=== PATIENT | male | born 1960 | race Caucasian/White ===

== ENCOUNTER 2025-02-27 13:03 | Outpatient (AMB) | payer OTHER, SELFPAY ==
--- NOTE | 2025-02-27 13:08 | MHC.OFFVIS ---
Vital Signs 02/27/25 13:13 Height 5 ft 9.5 in Weight 244 lb 4 oz BMI 35.5 BP 128/74 Blood Pressure Location Rt brachial Position Sitting Pulse 55 Pulse Source Pulse Oximeter Pulse Oximetry (%) 99 Oxygen Delivery Method Room Air Intake Visit Reasons: Bilateral low back pain Intake Note: Pain today 12/10 Tree Trimmer Required: No Accompanied by: Self / Same As Patient Allergies No Known Allergies Allergy (Verified 02/27/25 13:13) HPI HPI Bilateral low back pain: Aggravating or associated factors: HPI Comments Details: The patient is a 64-year-old male presenting with chronic low back pain with radiculopathy. The pain has been present for over a year, characterized by constant stiffness, aching, stabbing, and numbness radiating down the left leg. Exacerbating factors include laying down, bending, lifting, and standing, while stretching, Tylenol, and ibuprofen provide some relief. 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 He is scheduled to start physical therapy at [facility]. Patient also reports other back injections that believe to be facet or medial branch blocks at [facility] with minimal relief. The patient has a history of osteoarthritis, with previous joint replacements including the right knee, right hip, and left hip (twice, including hip revision). He reports generalized osteoarthritis affecting multiple joints. The patient has chronic kidney disease stage 3, managed by his PCP, primarily due to recurrent kidney stones. He avoids daily use of ibuprofen due to his kidney condition. The patient also has benign prostatic hyperplasia, but denies bladder or bowel incontinence related to spinal stenosis. He reports spondylolisthesis, though he does not experience instability or significant functional impairment from it. - Onset: Pain has been present for over a year. - Quality: Described as constant stiffness, aching, stabbing, burning, tightness in back; heaviness and numbness in LLE. - Location: Low back with radiation down the left leg posteriorly and big toe. - Exacerbating factors: Laying down, bending, lifting, and standing. - Relieving factors: Stretching, Tylenol, and ibuprofen. - Interference: Affects sleep and daily activities. - Affect: Pain impacts sleep, requiring the patient to find a specific position to rest. - Analgesia: Current medications include Tylenol, ibuprofen, and gabapentin; pain levels vary from 5/10 to 10/10 throughout the day. - Adverse Effects: No significant adverse effects from current medications reported. 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 - Aberrant Drug Related Behaviors: No signs of medication misuse or abuse reported. Oswestry Low Back Pain Disability Score=18 [facility] Medical History (Updated 02/27/25 @ 20:00 by VINAY White) Hyperlipidemia Onychomycosis Stage 3 chronic kidney disease Insomnia Cervical spine arthritis Osteoarthritis History of obsessive compulsive disorder Cardiac hypertrophy Chronic sinusitis Anxiety Sleep apnea Review of Systems Const Details: - Musculoskeletal: Reports chronic low back pain with radiation to the left leg, occasional muscle spasms, and stiffness. - Neurological: Reports numbness and tinging in the left leg and big toe, occasional weakness in the left leg. Denies saddle anesthesia. - Genitourinary: Denies urinary or bowl incontinence related to spinal stenosis. Reports burning and stabbing pain in posterior thigh and perineal region. - General: Denies smoking, reports rare alcohol consumption, and occasional use of cannabis edibles for sleep. All systems reviewed & are unremarkable except as noted in HPI and below Physical Exam Vital Signs: Last Vital Signs Pulse 55 02/27/25 13:13 BP 128/74 02/27/25 13:13 Pulse Ox 99 02/27/25 13:13 Oxygen Delivery Method Room Air 02/27/25 13:13 BMI result Body Mass Index 35.5 General: Appears afebrile. Alert and oriented. Mood and affect appropriate. Follows and participates in conversation appropriately. Respiratory effort is unlabored. No cough. Able to transition from sit to stand unassisted. Ambulates with bilaterally normal heel strike and toe off. General: Yes no CVA tenderness Back/Spine/Pelvis Other: Limited lumbar ROM due to pain. Lumbar flexion forward and bending reproduces moderate to severe pain, lumbar extension and axial rotations reproduce mild to moderate pain. Demonstrates 5/5 right and 4/5 left strength of quadriceps bilaterally as well as flexion/dorsiflexion of bilateral feet against resistance. 2+ pedal pulses bilaterally. Straight leg rise with dorsiflexion positive on the left. +2 right +1 left patellar and diminished achilles reflexes bilaterally. Facet loading test positive bilaterally. Limited Pelon?s and Stinchfield tests are positive on the left. No groin pain with I/E hip rotations. Valsalva maneuver is positive. Decreased sensation noted in the left leg, particularly affecting the calf and big toe, with reported numbness. Back: no CVA tenderness Cervical Spine: cervical ROM normal, cervical muscular tenderness and No Cervical spine tenderness Thoracic/Lumbar Spine: thoracic and lumbar spine normal to inspection, No Thoracic/lumbar spine scar(s), Lasegue's sign positive on the left and localized, pain with thoraco-lumbar ROM, paraspinal muscle tenderness on the left greater than right, thoraco-lumbar ROM limited, No thoracic spinal tenderness and lumbar spinal tenderness (L4-S1) Pelvis: buttock tenderness on the left Sacroiliac joints: on the right nontender and on the left tender to palpation Extrem General: Yes capillary refill normal, Yes no clubbing, cyanosis or edema and Yes no calf tenderness Results Reviewed Results Reviewed: XR LUMBOSACRAL SPINE 02/27/25 CLINICAL INFORMATION: M43.17 - Spondylolisthesis, lumbosacral region COMPARISON: None available. TECHNIQUE: 7 views of the lumbar spine, including flexion and extension views, were obtained. FINDINGS: Numerous calcific densities project over the left renal contour. Are likely obscured calcifications in the region of the right kidney. Total hip arthroplasty has been performed bilaterally and is not completely included on the images. There are 5 nonrib-bearing lumbar segments. With flexion and extension, there is no sign of instability. L1-2: There is moderate disc space narrowing with grade 1 retrolisthesis. L2-3: Unremarkable. L3-4: There is minimal grade 1 retrolisthesis. Disc spaces preserved. L4-5: There is minimal retrolisthesis. Disc spaces preserved. L5-S1: There is grade 2 anterolisthesis. There is bilateral pars defect. There is moderate to severe displacement with endplate sclerosis and osteophytes. IMPRESSION: Suspected nephrolithiasis, left greater than right. L5-S1 demonstrates grade 2 anterolisthesis with moderate severe disc space narrowing and bilateral pars interarticularis defects. Multilevel degenerative disc disease, as noted above, most advanced at L1-2 and L5-S1. Assessment & Plan Assessment & Plan (1) Chronic low back pain with left-sided sciatica: Code(s): M54.42 - Lumbago with sciatica, left side; G89.29 - Other chronic pain (2) Muscle spasms of neck: Code(s): M62.838 - Other muscle spasm (3) Spondylolisthesis, lumbosacral region: Code(s): M43.17 - Spondylolisthesis, lumbosacral region Category: Medical (4) Lumbar spondylosis: Code(s): M47.816 - Spondylosis without myelopathy or radiculopathy, lumbar region Category: Medical (5) Lumbar degenerative disc disease: Code(s): M51.369 - Other intervertebral disc degeneration, lumbar region without mention of lumbar back pain or lower extremity pain Category: Medical Plan The patient will begin physical therapy at [facility] to address chronic low back pain and radiculopathy. If physical therapy is ineffective, further interventions such as Neurosurgical evaluation vs therapeutic and diagnostic injections will be considered. We also briefly discussed peripheral nerve vs spinal cord stimulation or radiofrequency ablation. The patient is advised to continue current medications, including gabapentin, Tylenol, and ibuprofen, with caution due to chronic kidney disease stage 3. Lidocaine patches may be trialed for additional pain relief. Patient completed lumbar flexion and extension views xray imaging after today's visit. Follow-up MRI imaging will be submitted to assess the progression of spondylolisthesis, spinal stenosis and degenerative changes. Patient will follow up with PCP and Urology for potential nephrolithiasis, given history of kidney stones. All questions and concerns have been answered and patient agreed with the plan. Follow up for MRI results and sooner as needed. Patient was informed and verbally consented to the use of an ambient scribe for clinic note documentation during this visit. Orders: Orders XR lumbar spine 6V w bending Today M43.17 - Spondylolisthesis, lumbosacral region, M47.816 - Spondylosis without myelopathy or radiculopathy, lumbar region, M51.369 - Other intervertebral disc degeneration, lumbar region without mention of lumbar back pain or lower extremity pain MR lumbar spine wo con Today M43.17 - Spondylolisthesis, lumbosacral region, M47.816 - Spondylosis without myelopathy or radiculopathy, lumbar region, M51.369 - Other intervertebral disc degeneration, lumbar region without mention of lumbar back pain or lower extremity pain Medications: New lidocaine 5% 1 patch topical DAILY 30 ea 0RF pain 30 days M43.17 - Spondylolisthesis, lumbosacral region, M47.816 - Spondylosis without myelopathy or radiculopathy, lumbar region, M51.369 - Other intervertebral disc degeneration, lumbar region without mention of lumbar back pain or lower extremity pain Coding Level of Care Code New Pt Level 4 (56753) Diagnoses Chronic low back pain with left-sided sciatica M54.42; G89.29 Muscle spasms of neck M62.838 Spondylolisthesis, lumbosacral region M43.17 Lumbar spondylosis M47.816 Lumbar degenerative disc disease M51.369
[2025-02-27 13:13] VITALS: BP 128/74; PULSE 55; O2SAT 99; BMI 35.5
--- OUTSIDE RECORDS SUMMARY | 2025-02-27 13:45 | XMS_ITS | Encounter Summary ---
Author Organization [facility] Address [address] [place] [address] Phone Care Team Providers Care Beamer Helper Name Role Phone Elizabeth Samaniego MD Primary Care Provider [phone] Encounter Details Date Type Department Care Team (Late st Contact Info) Description 10/29/2023 Documentation Only [facility], [address] [place] [address] [place] [address] [place] [address] Social History Tobacco Use Types Packs/Day Years Used Date Smoking Tobacco: Never Assessed Sex and Gender Information Value Date Recorded Sex Assigned at Not on file Legal Sex Male 9:39 AM EDT Gender Identity Not on file Sexual Orientation Not on file documented as of this encounter Plan of Treatment Not on file documented as of this encounter Visit Diagnoses Not on filedocumented in this encounter Care Teams Beamer Helper Relationship Specialty Start Date End Date Elizabeth Samaniego MD [address] [place] [address], [facility] [address] [place], [place] [id number] PCP - General Family Medicine 10/29/23 documented as of this encounter
--- OUTSIDE RECORDS SUMMARY | 2025-02-27 13:45 | XMS_ITS | Encounter Summary ---
Author Organization [facility] Address [address] [address] Phone Care Team Providers Care Critical Care Physician Assistant Name Role Phone BandarChandu mercedesZeinasharyn Gonzalez DO Unavailable Rainer Mendez MD Unavailable [phone] Daniella VilledaP Unavailable Maya Wilson MD Unavailable Elizabeth Samaniego MD Unavailable Elizabeth Samaniego MD Primary Care Provider [phone] Elizabeth Samaniego MD Unavailable Reason for Referral * MRI/CAT Scan - Closed Specialty Diagnoses / Procedures Referred By Amilcar rascon Referred To Contact Radiology Diagnoses Calculus of kidney Procedures CT Abdomen/Pelvis Alida Gutierrez PA Phone: tel: fax: [email or web address] Referral ID Status Reason Start Date Expiration Date Visits Re quested Visits Authorized [id number] Closed 04/18/2022 05/18/2022 1 1 Encounter Details Date Type Department Care Team (Latest Contact Info) Description 03/14/2022 Transcribe Orders Virtual Department [address] [place] [address] Alida Gutierrez PA [address] [facility] [address] [place] [address] [email or web address] Calculus of kidney (Primary Dx) Social History Tobacco Use Types Packs/Day Years Used Date Smoking Tobacco: Never Smokeless Tobacco: Never Alcohol Use Standard Drinks/Week Comments No 0 (1 standard drink = 0.6 oz pur e alcohol) Child or Family Care Answer Date Record ed Do you have problems with on e of the following making it difficult for you to work, study, or receive health care? No 12/09/2020 Education Answer Date Recorded Are you interested in help w ith more adult education (for example, completing high school, GED, job training, learning the Brazilian language, technical skills, or developing parenting skills)? No 12/09/2020 Are you concerned about learning? Not on file 12/09/2020 Not on file 12/09/2020 Not on file 12/09/2020 Food Answer Date Recorded Within the past 6 months we worried whether our food would run out before we got money to buy more. Never True 12/09/2020 Within the past 6 months the food we bought just didn't last and we didn't have enough money to get more. Never True Paying for Meds Answer Date Recorded Do you have trouble paying for medicines? No 12/09/2020 Paying Utility Bills Answer Date Record ed Do you have trouble paying your heating or elect ricity bill? No 12/09/2020 Transportation Answer Date Recorded Has the lack of transportati on kept you from medical appointments or from getting medications? No 12/09/2020 Sex and Gender Information Value Date Recorded Sex Assigned at Male 08/24/2018 12:47 AM EST Legal Sex Male 9:25 AM EDT Gender Identity Male 08/24/2018 12:47 AM EST Sexual Orientation Straight 08/24/2018 12 :47 AM EST documented as of this encounter Plan of Treatment Upcoming Encounters Date Type Department Care Team (Late st Contact Info) Description 02/28/2025 2:15 PM EDT Office Visit [facility] [address] [place] [address] Elizabeth Samaniego MD [address] [place] [address], [address] [place] [address] [email or web address] Eloisa Burgos, PT [address] [place] [address] 03/07/2025 1:30 PM EDT Office Visit [address] [place] [address] Elizabeth Samaniego MD [address] [place] [address], [address] [address] [email or web address] Eloisa Burgos, PT 8 [place] [address] 03/14/2025 1:30 PM EDT Office Visit [facility] 8 [place] [address] Elizabeth Samaniego MD [address] [place] [address], [address] [address] [email or web address] Eloisa Burgos, PT 8 [place] [address] 03/21/2025 1:30 PM EDT Office Visit [facility] [address] [place] [address] Elizabeth Samaniego MD [address] [place] [address], [address] [address] Eloisa Burgos, PT 8 [place] [address] 03/28/2025 1:30 PM EDT Office Visit [address] [place] [address] Elizabeth Samaniego MD [address] [facility], [address] [place] [address] [email or web address] [email or web address] Eloisa Burgos, PT 8 [place] [address] 04/04/2025 1:30 PM EDT Office Visit [facility] 8 [place] [address] Elizabeth Samaniego MD [address] [place] [address], [address] [place] [address] [email or web address] [email or web address] Eloisa Burgos, PT 8 [place] [address] [email or web address] 04/11/2025 1:30 PM EDT Office Visit [facility] 8 [place] [address] Elizabeth Samaniego MD [address] [place] [address], [address] [address] [email or web address] Eloisa Burgos, PT 8 [place] [address] 06/20/2025 12:15 PM EST Evaluation [facility] [place] [address] [address] Heide Fried AuD [address] [place] [address] [email or web address] 06/20/2025 1:00 PM EST Office [place] [facility] [place] [address] [address] Joe Alonzo MD [address] [place] [address] - [place] [address] [email or web address] documented as of this encounter Results * CT ABDOMEN/PELVIS (KIDNEY STONE) WITHOUT CONTRAST (04/18/2022 11:51 AM EDT) Anatomical Region Laterality Modality Abdomen, Pelvis Computed Tomogra phy 04/18/2022 6:42 PM EDT Impressions 04/18/2022 6:48 PM EDT 1.No hydronephrosis. Multiple bilateral nonobstructive renal calculi, overall stable from 12/09/2020. 2.Constipation: Narrative 04/18/2022 6:[address] ABDOMEN/PELVIS (KIDNEY STONE) WITHOUT CONTRAST TECHNIQUE: Multidetector-row CT of the abdomen and pelvis was performed without intravenous contrast using tailored dose modulation techniques. Images were reconstructed in the axial, coronal, and sagittal planes. COMPARISON: 12/09/2020 ABSENCE OF INTRAVENOUS CONTRAST DECREASES SENSITIVITY FOR DETECTION OF FOCAL LESIONS AND VASCULAR PATHOLOGY. FINDINGS: Lower Chest: Normal. No consolidation or pleural effusions. Liver: Normal. No focal lesions. Biliary: Normal. No biliary ductal dilatation. Spleen: Normal. No splenomegaly or focal lesions. Pancreas: Normal. No masses or ductal dilatation. Adrenal Glands: Normal. No nodules. Kidneys/Ureters: No hydronephrosis. Multiple bilateral nonobstructive renal calculi measuring up to 6 mm on the right and 7 mm on the left, similar to the prior exam. No ureteral stones are seen. Bowel: No evidence of bowel obstruction. Moderate to large amount of colonic stool. Peritoneum/Retroperitoneum: Normal. No masses, pneumoperitoneum, or fluid. Lymph Nodes: Normal. No lymphadenopathy. Pelvic Organs/Bladder: Bladder is largely obscured by the metallic streak artifact. Otherwise unremarkable Vessels: Normal. No abdominal aortic aneurysm. Bones/Soft Tissues: No destructive osseous lesions. Scattered degenerative changes of the visualized spine are noted. There is metallic streak artifact from the bilateral hip arthroplasty hardware, mildly degrading evaluation of several images. Procedure Note Cecilia Abel MD - 04/18/2022 CT ABDOMEN/PELVIS (KIDNEY STONE) WITHOUT CONTRAST TECHNIQUE: Multidetector-row CT of the abdomen and pelvis was performedwithout intravenous contrast using tailored dose modulation techniques.Images were reconstructed in the axial, coronal, and sagittal planes. COMPARISON: 12/09/2020 ABSENCE OF INTRAVENOUS CONTRAST DECREASES SENSITIVITY FOR DETECTION OFFOCAL LESIONS AND VASCULAR PATHOLOGY. FINDINGS: Lower Chest: Normal. No consolidation or pleural effusions. Liver: Normal. No focal lesions. Biliary: Normal. No biliary ductal dilatation. Spleen: Normal. No splenomegaly or focal lesions. Pancreas: Normal. No masses or ductal dilatation. Adrenal Glands: Normal. No nodules. Kidneys/Ureters: No hydronephrosis. Multiple bilateral nonobstructiverenal calculi measuring up to 6 mm on the right and 7 mm on the left,similar to the prior exam. No ureteral stones are seen. Bowel: No evidence of bowel obstruction. Moderate to large amount ofcolonic stool. Peritoneum/Retroperitoneum: Normal. No masses, pneumoperitoneum, orfluid. Lymph Nodes: Normal. No lymphadenopathy. Pelvic Organs/Bladder: Bladder is largely obscured by the metallic streakartifact. Otherwise unremarkable Vessels: Normal. No abdominal aortic aneurysm. Bones/Soft Tissues: No destructive osseous lesions. Scattered degenerative changes of the visualized spine are noted. There is metallic streak artifact from the bilateral hip arthroplastyhardware, mildly degrading evaluation of several images. IMPRESSION: 1.No hydronephrosis. Multiple bilateral nonobstructive renal calculi,overall stable from 12/09/2020. 2.Constipation: Alida LAST IMKareem CT ABD/PELVIS Final Result documented in this encounter Visit Diagnoses Diagnosis Calculus of kidney- Primary Calculus of kidney documented in this encounter Additional Health Concerns Infection Onset Date Last Indicated Resolved Time CoV-Risk Comment:Per Ambulatory Triage Form 03/16/2024 03/16/202403/27 1:22 AM EDT Assessment Noted Time PHQ-2 Depression Total Score: 1 12/07/19 22 9:15 AM EDT documented as of this encounter Care Teams Critical Care Physician Assistant Relationship Specialty Start Date End Date Elizabeth Samaniego MD [address] [place] [address], [address] [place] [address] [email or web address] PCP - General 07/02/17 Zeina Rueda DO [address] [place] [address] 7 [place] [address] [email or web address] Historical LMR Provider 05/23/17 Rainer Mendez MD [address] [place] [id number] [email or web address] Historical LMR Provider 05/23/17 Daniella Villeda FNP [address] [place] [address] [email or web address] Historical LMR Provider 05/23/17 Maya Wilson MD [address] [place] [address] [email or web address] Historical LMR Provider 05/23/17 Elizabeth Samaniego MD [address] [place] [address] Historical LMR Provider 05/23/17 Elizabeth Samaniego MD [address] [place] [address] [email or web address] Insurance Assigned Provider 11/07/2302/06/24 documented as of this encounter Additional Source Comments The information contained in this document represents components of the legal health record. It is not the complete legal health record.[facility]
== END 2025-02-27 13:47 | disposition home or self-care (01) ==
LOC: HO.PMC 13:04
PROVIDERS: PCP Family Medicine; Referring Provider Family Medicine; Visit Provider Nurse Practitioner Family
DX: M54.42 Lumbago with sciatica, left side (principal); G89.29 Other chronic pain; M62.838 Other muscle spasm; M43.17 Spondylolisthesis, lumbosacral region; M47.816 Spondylosis without myelopathy or radiculopathy, lumbar region; M51.369 Other intervertebral disc degeneration, lumbar region without mention of lumbar back pain or lower extremity pain
CPT/HCPCS: 99204

== ENCOUNTER 2025-02-27 13:03 | Outpatient (REF) | payer OTHER, SELFPAY ==
--- NOTE | ~2025-02-27 | XR_ITS ---
EXAMINATION: XR LUMBOSACRAL SPINE CLINICAL INFORMATION: M43.17 - Spondylolisthesis, lumbosacral region COMPARISON: None available. TECHNIQUE: 7 views of the lumbar spine, including flexion and extension views, were obtained. FINDINGS: Numerous calcific densities project over the left renal contour. Are likely obscured calcifications in the region of the right kidney. Total hip arthroplasty has been performed bilaterally and is not completely included on the images. There are 5 nonrib-bearing lumbar segments. With flexion and extension, there is no sign of instability. L1-2: There is moderate disc space narrowing with grade 1 retrolisthesis. L2-3: Unremarkable. L3-4: There is minimal grade 1 retrolisthesis. Disc spaces preserved. L4-5: There is minimal retrolisthesis. Disc spaces preserved. L5-S1: There is grade 2 anterolisthesis. There is bilateral pars defect. There is moderate to severe displacement with endplate sclerosis and osteophytes. XR/XR lumbar spine 6V w bending IMPRESSION: Suspected nephrolithiasis, left greater than right. L5-S1 demonstrates grade 2 anterolisthesis with moderate severe disc space narrowing and bilateral pars interarticularis defects. Multilevel degenerative disc disease, as noted above, most advanced at L1-2 and L5-S1. Electronically signed by: Zachariah Leonard MD 02/27/2025 02:37 PM EDT
== END 2025-02-27 13:04 | disposition home or self-care (01) ==
LOC: HO.XRAY 13:03
PROVIDERS: PCP Family Medicine; Referring Provider Family Medicine; Visit Provider Nurse Practitioner Family
DX: M47.26 Other spondylosis with radiculopathy, lumbar region (principal); M51.16 Intervertebral disc disorders with radiculopathy, lumbar region; G89.29 Other chronic pain; M62.838 Other muscle spasm; N18.30 Chronic kidney disease, stage 3 unspecified; Z87.442 Personal history of urinary calculi
CPT/HCPCS: 72114

== ENCOUNTER → 2025-02-27 13:55 | Outpatient (BNV) | payer OTHER, SELFPAY | PROVIDERS: PCP Family Medicine; Referring Provider Family Medicine; Visit Provider Radiology Diagnostic Radiology | DX: M43.17 Spondylolisthesis, lumbosacral region (principal) | CPT/HCPCS: 72114 ==

== ENCOUNTER 2025-03-07 19:33 | Outpatient (REF) | payer OTHER, SELFPAY ==
--- NOTE | ~2025-03-07 | MR_ITS ---
CLINICAL HISTORY: M43.17 - Spondylolisthesis, lumbosacral region --- Additional Notes or Special Instructions: L5-S1 demonstrates grade 2 anterolisthesis with moderate severe disc MRI lumbar spine without contrast Comparison: None provided Findings: Note there is a disc between S1 and S2 segments. 9 mm anterolisthesis L5-S1 with facet hypertrophy. Severe bilateral neural foraminal narrowing noted. No significant spinal canal stenosis. Reactive changes noted in the endplates. L4-5 facet hypertrophy and disc bulge with mild canal stenosis. Bilateral neural foraminal stenosis narrowing noted. L3-4 facet hypertrophy and disc bulge with mild canal stenosis. Bilateral neural foraminal narrowing noted. L2-3 facet hypertrophy and disc bulge with mild canal stenosis. Bilateral neural foraminal narrowing noted. L1-2 facet hypertrophy, disc bulge and osteophytosis. Mild spinal stenosis with neural foraminal narrowing. Reactive changes noted in the endplates. No acute bony signal abnormalities identified. Bony alignment normal above L5-S1 level. Incidental renal cysts noted. Impression: Multilevel disease as outlined above L5-S1 severe bilateral neural foraminal narrowing This document has been electronically signed by: Dustin Gabriel MD on 03/07/2025 21:02:20
--- OUTSIDE RECORDS SUMMARY | 2025-03-07 19:41 | XMS_ITS | Encounter Summary ---
Author Organization [facility] Address [address] [place] [address] Phone Care Team Providers Care Health Care Law Specialist Name Role Phone Elizabeth Samaniego MD Primary Care Provider [phone] Encounter Details Date Type Department Care Team (Late st Contact Info) Description 10/29/2023 Documentation Only [facility], [address] [place] [address] [place], [place] [address] [place] [address] Social History Tobacco Use Types [...] on filedocumented in this encounter Care Teams Health Care Law Specialist Relationship Specialty Start Date End Date Elizabeth Samaniego MD [address] [place] [address], [facility] 7 [place], [place] [id number] PCP - General Family Medicine 10/29/23 documented as of this encounter
== END 2025-03-07 19:34 | disposition home or self-care (01) ==
LOC: HO.MRI 19:33
PROVIDERS: PCP Family Medicine; Visit Provider Nurse Practitioner Family
DX: M43.17 Spondylolisthesis, lumbosacral region (principal); M47.816 Spondylosis without myelopathy or radiculopathy, lumbar region; M51.369 Other intervertebral disc degeneration, lumbar region without mention of lumbar back pain or lower extremity pain
CPT/HCPCS: 72148

== ENCOUNTER → 2025-03-07 19:33 | Outpatient (BNV) | payer OTHER, SELFPAY | PROVIDERS: PCP Family Medicine; Visit Provider Radiology Diagnostic Radiology | DX: M43.17 Spondylolisthesis, lumbosacral region (principal) | CPT/HCPCS: 72148 ==

== ENCOUNTER 2025-03-28 13:04 | Outpatient (AMB) | payer OTHER, SELFPAY ==
--- OUTSIDE RECORDS SUMMARY | 2025-03-28 10:30 | XMS_ITS | Encounter Summary ---
Author Organization [facility] Address [address] [place] [address] Phone Care Team Providers Care Civil Engineering Professor Name Role Phone BandarDeborah mercedesjanes Gonzalez DO Unavailable [phone] Rainer Mendez MD Unavailable Daniella Villeda TUBER MACHINE OPERATOR HELPER Unavailable [phone] Maya Wilson MD Unavailable [phone] Elizabeth Samaniego MD Unavailable [phone] Elizabeth Samaniego MD Primary Care Provider [phone] Reason for Visit * Physical Therapy (Within 2 weeks) - Authorized Specialty Diagnoses / Procedures Referred By Contac t Referred To Contact Physical Therapy Diagnoses Chronic bilateral low back pain with left-sided sciatica Spondylolisthesis of lumbar region Elizabeth Samaniego MD [address] [place] [address], [address] [place] [address] Phone: tel: fax: [email or web address] [address] [address] Phone: tel: Referral ID Status Reason Start Date Expiration Date V isits Requested Visits Authorized [id number] Authorized 12/23/2024 10/31/2025 60 60 Encounter Details Date Type Department Care Team (Late st Contact Info) Description 03/28/2025 10:30 AM EDT Office Visit [facility] [address] [place] [address] Elizabeth Samaniego MD [address] [place] [address], [address] [place], [place] [id number] [email or web address] Eloisa Burgos, PT [address] [place] [address] [email or web address] Lumbar back pain with radiculopathy affecting left lower extremity (Primary Dx) Social History Tobacco Use Types [...] work, study, or receive health care? No 12/22/2024 Education Answer Date Recorded Are you interested in help w ith more adult education (for example, completing high school, GED, job training, learning the Zimbabwe[place] language, technical skills, or developing parenting skills)? No 12/22/2024 Are you concerned about learning? Not on file 12/22/2024 No 12/22/2024 Yes 12/22/2024 Food Answer Date Recorded Within the past 6 months we worried whether our food would run out before we got money to buy more. Never True 12/22/2024 Within the past 6 months the food we bought just didn't last and we didn't have enough money to get more. Never True Residential Stability Answer Date Recor ded What is your housing situation today? I have brianda sing 12/22/2024 How many times have you move d in the past 12 months? Zero (I did not move) 12/22/2024 Paying for Meds Answer Date Recorded Do you have trouble paying for medicines? No 12/22/2024 Paying Utility Bills Answer Date Record ed Do you have trouble paying your heating or elect ricity bill? No 12/22/2024 Transportation Answer Date Recorded Has the lack of transportati on kept you from medical appointments or from getting medications? No 12/22/2024 Unemployment Answer Date Recorded Are you currently unemployed or working on a part-time or temporary basis, and looking for work? No 09/05/2022 Digital Access Answer Date Recorded No 12/22/2024 Yes 12/22/2024 Do you have reliable internet access at home? Ye s 12/22/2024 Do you have a device (e.g., phone, tablet, computer) with a working camera? Yes 12/22/2024 Intimate Partner Violence Answer Date R ecorded Denied Basic Needs Not on file 12/22/2024 In the past 12 months have y ou been in a relationship with a person who hurts, threatens, or tries to control you? No 12/22/2024 Worried food would run out Not on file 12/22 In the past 12 months have y ou been in a relationship with a person who hurts, threatens, or tries to control you? No 12/22/2024 Sex and Gender Information Value Date Recorded Sex Assigned at Male 08/24/2018 12:47 AM EST Legal Sex Male 9:25 AM EDT Gender Identity Male 08/24/2018 12:47 AM EST Sexual Orientation Straight 08/24/2018 12 :47 AM EST documented as of this encounter Progress Notes * Eloisa Burgos, PT - 03/28/2025 10:30 AM EDT Physical Therapy Treatment Note Patient Name: Christofer Ladd Date of : 1960 Referring MD: Elizabeth Samaniego MD [address] [place] [address], [facility] 7 [place] [address] Evaluation Date: SOC Date: 02/28/25 Diagnosis: Lumbar back pain with radiculopathy affecting left lower extremity [M54.16] Precautions/ Safety: Neck OA, s/p r/l THR and L revision, R TKR,stage 3 chronic kidney disease, OCD, MRI lumbar multilevel degenerative changes upper lumbar incl B facet arthropathy, disc bulge, mild spinal canal stenosis and mild B foraminal stenosis L1 to L5, L5 S1 grade 2 anteriolisthesis with b pars defect, severe B foraminal stenosis This patient has attended 5 visits since the onset Physical Therapy. S: pre 2 or 3 low back and L buttock, 1 low lumbar after.seeing neurosurgeon Edith today. Self traction and reduced lordosis feels best. O: Stretches hamstrings foot on stool B, quadriceps standing B, ( stretches done lying down with some overpressure hip figure 4 standing B, standing knees together heel toward butt quadricep stretch r/l, Hip flexor stretch knee on stool r/l belly in r/l 2x 30 sec, Prone B ankle PF for 1 min. Reduced lordosis abdominal isometrics 4x 10 sec, Hooklying alternating r/l leg slides low back flat for 1 min, Hooklying march ups for 5 sec r/l belly in 1 min, Plank on knees and forearms 2x 30 sec. Self care: Spine basics with model. Manual: Self traction at countertop 2x 30 sec and door hang 2x 30 sec reduced lordosis Stm lumbar fascia, low lumbar paraspinals, hip flexors, hamstrings, short hip adductors, B gastox. A: Initial Clinical Assessment: 64 yr old male, chronic low back pain with L radiculopathy, grade 2 spondylolisthesis and severe B foraminal stenosis L5S1, impairments in comfort lumbar B and L lateral lower leg 10, decreased flexibility lumbar SB, hamstrings, hip flexors, hip Er and IR, quadriceps and ankle PF, increased tensionupper trapezius, low lumbar, weakness middle trapezius B, decreased sensation L plantar especially toes 1 and 2, oswestry 30 with 0 as ideal for donning socks, standing 1 hr, sitting 1 hr, transfers chair and car. PT is indicated. Today, reduced lordosis helps and self traction helps, pain decreased 2 to 1 low lumbar, [id number] B, prone knee flexion r 105, l 120, hip ER B 60, B IR 45, Keith abdominal exs. GOAL: (Short Term): In 4 weeks, I hep, pain <7 lumbar and L lateral calf, improved flexibility low back, hips, knees, calves, improved sensation L plantar, protective mechanics given grade 2 spondylolisthesis L5S1 and severe foraminal stenosis B OUTCOME (Prison): In 6 week, improved oswestry 10 points for pain<6, improved keith donning socks, sit 1 hr, stand 1hr, transfer with less pain mornings P: Eloisa Burgos, [place] [phone] documented in this encounter Plan of Treatment Upcoming Encounters Date Type Department Care Team (Late st Contact Info) Description 04/04/2025 1:30 PM EDT Office Visit [facility] [address] [place] [address] Elizabeth Samaniego MD [address] [facility], [address] [place] [address] Eloisa Burgos, PT 8 [place] [address] 04/11/2025 1:30 PM EDT Office Visit [facility] [address] [place] [address] Elizabeth Samaniego MD [address] [place] [address], [address] [place] [address] Eloisa Burgos, PT 8 [place] [address] [email or web address] 06/20/2025 12:15 PM EST Evaluation [facility] Audiology [address] [address] Heide Fried AuD [address] [place] [phone] [email or web address] 06/20/2025 1:00 PM EST Office Visit [facility] Otology [address] [address] Joe Alonzo MD [address] [place] [address] [place] [address] [email or web address] documented as of this encounter Visit Diagnoses Diagnosis Lumbar back pain with radiculopathy affecting left lower extremity- Primary documented in this encounter Additional Health Concerns Assessment Noted Time PHQ-2 Depression Total Score: 1 12/23/19 25 9:57 PM EDT documented as of this encounter Care Teams Civil Engineering Professor Relationship Specialty Start Date End Date Elizabeth Samaniego MD [address] [place] [address] [email or web address] PCP - General 07/02/17 Zeina Rueda DO [address] [place] [address] [email or web address] Historical LMR Provider 05/23/17 Rainer Mendez MD [address] [place] [address] [email or web address] Historical LMR Provider 05/23/17 Daniella Villeda FNP [address] [place] [address] [email or web address] Historical LMR Provider 05/23/17 Maya Wilson MD [address] [place] [address] [email or web address] Historical LMR Provider 05/23/17 Elizabeth Samaniego MD [address] [place] [address] [email or web address] Historical LMR Provider 05/23/17 documented as of this encounter Additional Source Comments The information contained in this document represents components of the legal health record. It is not the complete legal health record.[facility]
--- NOTE | 2025-03-28 13:06 | A.SPINEOV_ITS ---
Vital Signs 03/28/25 13:12 Height 5 ft 9.5 in Weight 245 lb BMI 35.7 Intake Visit Reasons: Spinal stenosis Intake Note: Mr. Ladd is here today c/o neck and back pain. Procedural Nurse Required: No Allergies No Known Allergies Allergy (Verified 03/28/25 13:13) Physical Exam Vital Signs: BMI result Body Mass Index 35.7 Assessment & Plan Assessment & Plan (1) Spondylolisthesis at L5-S1 level: Code(s): M43.17 - Spondylolisthesis, lumbosacral region Category: Medical Plan Dear Samara, Thank you for referring Christofer to our office today. He is a pleasant 64-year-old male who comes in today for evaluation of low back pain. He reports that this has been ongoing for many years, however has worsened over the course of the last 1 year. He reports that on a day-to-day basis his pain is about a 2-3/10, but he has had exacerbations of pain all the way up to a 10/10. 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 Generally speaking, he is a very active person, weightlifting about 3 times weekly and working out 5 times weekly. He is still able to work as a nurse and complete his referee duties without much issue. He does typically take ibuprofen or Alleve before going into work to help prophylactically mitigate the pain. He also occasionally will utilize lidocaine patches at home. He denies any significant shooting pains into either of his lower extremities. He states that he is still able to walk for about an hour without having a sit down due to the pain. He is currently engaging with physical therapy and has been for the past 3 weeks or so. He feels that physical therapy has been fairly helpful at reducing his overall pain. He has attempted injections in his lumbar spine before at [facility], however reports that they were not helpful for him. He is concerned that it is fairly difficult for him to fall asleep due to the pain, however when he does fall asleep he is able to get a full night's rest without waking up in pain. PMH: Hyperlipidemia, Onychomycosis, Stage 3 chronic kidney disease, Insomnia, Osteoarthritis, History of obsessive compulsive disorder, Cardiac hypertrophy, Chronic sinusitis, Anxiety, Sleep apnea. Social hx: Patient does not smoke, reports no substance use. Medications: Alfuzosin, bupropion, Klonopin, gabapentin, lidocaine, omeprazole, oxybutynin, propranolol, sertraline. Allergies: NKDA Physical exam: The patient has full 5/5 strength in his upper and lower extr emities. He ambulates well and rises from seated position without difficulty. He has no significant sensational deficits to light touch on examination. His reflexes are 1+ hypoactive in the bilateral patella, but are 2+ regular elsewhere. (-) Holley's, (-) clonus, (-) bilateral straight leg raise. Imaging review: X-ray of the lumbar spine completed here at [facility] shows grade 2 spondylolisthesis of L5-S1, with notable L5 pars interarticularis defect. Partially imaged bilateral Total hip arthroplasty. MRI of the lumbar spine completed here at [facility] redemonstrates this listhesis, and pars defect, which causes severe bilateral foraminal stenosis. Notable posterior endplate edema of L5 and superior endplate edema of S1 with Modic endplate changes noted on STIR sequence. The patient also brought old imaging (MRI L-spine from [facility] 2023) which provides evidence that the degeneration at L5-S1 has slightly worsened since prior MRI imaging. Impression: Christofer is a pleasant 64-year-old male who comes in today for evaluation of primarily low-grade low back pain. It sounds like he has been fairly successful in managing this via conservative means thus far. I believe that the low back pain he is experiencing is being caused by the grade 2 spondylolisthesis seen at L5-S1. The patient is rather versus the idea of surgical intervention to help fix this issue. I encouraged him to continue pursuing conservative measures at this time, as he has no obvious neurological deficit from this issue at this time. If he does get to the point where he exp eriences muscle weakness, numbness, or worsening pain, he should be re-evaluated by us for consideration of L5-S1 lumbar fusion. Thank you for allowing us to care for your patient. The total time spent with this visit with this patient was 45 minutes reviewing history, physical exam, MRI imaging review, and implementation of treatment plan or further diagnostic testing Jose Ramon Elliott MD,PhD [facility] Medications: New baclofen 10 mg PO BEDTIME PRN 30 tabs 0RF muscle spasms Coding Level of Care Code New Pt Level 4 (87066) Diagnoses Spondylolisthesis at L5-S1 level M43.17
[2025-03-28 13:12] VITALS: BMI 35.7
--- OUTSIDE RECORDS SUMMARY | 2025-03-28 13:49 | XMS_ITS | Encounter Summary ---
Author Organization [facility] Address [address] [place] [address] Phone Care Team Providers Care Emerging Solutions Executive Name Role Phone Zeina Rueda Carlos NGUYEN Unavailable [phone] Rainer Mendez MD Unavailable Daniella VilledaP Unavailable [phone] Maya Wilosn MD Unavailable Elizabeth Samaniego MD Unavailable [phone] Elizabeth Samaniego MD Primary Care Provider Elizabeth Samaniego MD Unavailable Encounter Details Date Type Department Care Team (Late st Contact Info) Description 03/14/2022 Procedure Pass [facility], Ct Scan - [address] [address] Social History Tobacco Use Types Packs/Day Years [...] high school, GED, job training, learning the British language, technical skills, or developing parenting skills)? [...] Description 04/04/2025 1:30 PM EDT Office Visit [address] [address] Elizabeth Samaniego MD [address] [place] [address] Eloisa Burgos, PT 8 [place] [address] 04/11/2025 1:30 PM EDT Office Visit [address] [place] [address] Elizabeth Samaniego MD [address] [place] [address] Eloisa Burgos, PT 8 [place] [address] 06/20/2025 12:15 PM EST Evaluation [facility] Audiology [address] [address] Heide Fried AuD [address] [place] [address] [email or web address] 06/20/2025 1:00 PM EST Office Visit [facility] Otology [address] [address] Joe Alonzo MD [address] [place] [address] [place] [address] [email or web address] documented as of this encounter Visit Diagnoses Not on filedocumented in this encounter Additional Health Concerns Infection Onset Date Last Indicated Resolved Time CoV-Risk Comment:Per Ambulatory Triage Form 03/16/2024 03/16/202403/27 1:22 AM EDT Assessment Noted Time PHQ-2 Depression Total Score: 1 12/07/19 22 9:15 AM EDT documented as of this encounter Care Teams Emerging Solutions Executive Relationship Specialty Start Date End Date Elizabeth Samaniego MD [address] [place] [address] 7 [place] [address] [email or web address] PCP - General 07/02/17 Zeina Rueda DO [address] [place] [address] 7 [place] [address] [email or web address] Historical LMR Provider 05/23/17 Rainer Mendez MD [address] [place] [address] [email or web address] Historical LMR Provider 05/23/17 Christiana Daniella TarangoVINAY [address] [facility], [facility] [address] [place] [address] [email or web address] Historical LMR Provider 05/23/17 Maya Wilson MD [address] [place] [address] 7 [place] [address] [email or web address] Historical LMR Provider 05/23/17 Elizabeth Samaniego MD [address] [place] [address], [facility] [address] [place] [address] [email or web address] Historical LMR Provider 05/23/17 Elizabeth Samaniego MD [address] [place] [address] 7 [place] [address] [email or web address] Insurance Assigned Provider 11/07/2302/06/24 documented as of this encounter Additional Source Comments The information contained in this document represents components of the legal health record. It is not the complete legal health record.[facility]
--- OUTSIDE RECORDS SUMMARY | 2025-03-28 13:49 | XMS_ITS | Encounter Summary ---
Author Organization [facility] Address [address] [address] Phone Care Team Providers Care Shake Table Operator Name Role Phone Petra Murillo Unavailable [phone] Alissa Young DEICER INSPECTOR PNEUMATIC Unavailable Zeina Rueda DO Unavailable Rainer Mendez MD Unavailable Jorge Hale DO Unavailable Daniella Villeda DELI DEPARTMENT MANAGER Unavailable Louis Johnson MD Unavailable Maya Wilson MD Unavailable Dexter Lamb MD Unavailable Elizabeth Samaniego MD Unavailable [phone] Pilo Haro MD Unavailable [phone] Elizabeth Samaniego MD Primary Care Provider Elizabeth Samaniego MD Unavailable Encounter Details Date Type Department Care Team (Late st Contact Info) Description 10/05/2019 Transcribe Orders [facility] Department 30 [place] [address] Brothers, Jaison Uribe MD [address] [place] [address] Social History Tobacco Use Types Packs/Day Years Used Date Smoking Tobacco: Never Smokeless Tobacco: Never Alcohol Use Standard Drinks/Week Comments No 0 (1 standard drink = 0.6 oz pur e alcohol) Sex and Gender Information Value Date Recorded Sex Assigned at Male 08/24/2018 12:47 AM EST Legal Sex Male 9:25 AM EDT Gender Identity Male 08/24/2018 12:47 AM EST Sexual Orientation Straight 08/24/2018 12 :47 AM EST documented as of this encounter Plan of Treatment Upcoming Encounters Date Type Department Care Team (Late st Contact Info) Description 04/04/2025 1:30 PM EDT Office Visit [facility] 8 [place] [address] Elizabeth Samaniego MD [address] [place] [address] 7 [place] [address] Eloisa Burgos, PT 8 [place] [address] [email or web address] 04/11/2025 1:30 PM EDT Office Visit [facility] 8 [place] [address] Elizabeth Samaniego MD [address] [place] [address] 7 [place] [address] Eloisa Burgos, PT 8 [place] [address] [email or web address] 06/20/2025 12:15 PM EST Evaluation [facility] Audiology [facility] [address] [address] Heide Fried AuD [address] [place] [address] [email or web address] 06/20/2025 1:00 PM EST Office Visit [facility] Otology [facility] 243 [facility] 2nd [place] [address] Joe Alonzo MD 243 [facility] [place] [address] [email or web address] documented as of this encounter Visit Diagnoses Not on filedocumented in this encounter Additional Health Concerns Infection Onset Date Last Indicated Resolved Time CoV-Risk 08/13/2020 08/13/2020 08/23/2020 1:25 AM EST CoV-Risk Comment:Per Ambulatory Triage Form 03/16/2024 03/16/202403/27 1:22 AM EDT documented as of this encounter Care Teams Shake Table Operator Relationship Specialty Start Date End Date Elizabeth Samaniego MD [address] [place] [address] 7 [place] [address] [email or web address] PCP - General 07/02/17 Petra Murillo PA [facility] [place] [address] Historical LMR Provider 05/23/17 2 Alissa Young DEICER INSPECTOR PNEUMATIC 1 [place] [address] Historical LMR Provider 05/23/17 2 Zeina Rueda DO [address] [place] [address] 7 [place] [address] Historical LMR Provider 05/23/17 Rainer Mendez MD [address] [place] [address] [email or web address] Historical LMR Provider 05/23/17 Jorge Hale DO [address] [place] [address] [facility], [place] [address] Historical LMR Provider 05/23/17 08/10/21 Daniella Villeda FNP [address] [place] [address] 7 [place] [address] [email or web address] Historical LMR Provider 05/23/17 Louis Johnson MD [address] [place] [address], [address] [place] [address] [email or web address] Historical LMR Provider 05/23/17 08/10/21 Maya Wilson MD [address] [place] [address] 7 [place] [address] [email or web address] Historical LMR Provider 05/23/17 Dexter Lamb MD [address] [place] [phone] Historical LMR Provider 05/23/17 Elizabeth Estrada MD [address] [place] [address] 7 [place] [address] [email or web address] Historical LMR Provider 05/23/17 Pilo Haro MD [address] [place], [place] [address] [place] [address] [email or web address] Historical LMR Provider 05/23/17 08/10/21 Elizabeth Samaniego MD [address] [place] [address], [address] [place] [address] [email or web address] Insurance Assigned Provider 11/07/2302/06/24 documented as of this encounter Additional Source Comments The information contained in this document represents components of the legal health record. It is not the complete legal health record.[facility]
--- OUTSIDE RECORDS SUMMARY | 2025-03-28 13:49 | XMS_ITS | Encounter Summary ---
Author Organization [facility] Address [address] [address] Phone Care Team Providers Care Funeral Service Manager Name Role Phone BandarChandu [email or web address] Gonzalez DO Unavailable Rainer Mendez MD Unavailable Daniella VilledaP Unavailable [phone] Maya Wilson MD Unavailable [phone] Elizabeth Samaniego MD Unavailable Elizabeth Samaniego MD Primary Care Provider Elizabeth Samaniego MD Unavailable [phone] Reason for Referral * MRI/CAT Scan - Closed Specialty Diagnoses / Procedures Referred By Amilcar rascon Referred To Contact Radiology Diagnoses Calculus of kidney Procedures CT Abdomen/Pelvis Alida Gutierrez PA Phone: tel: fax: [email or web address] Referral ID Status Reason Start Date Expiration Date Visits Re quested Visits Authorized [id number] Closed 04/18/2022 05/18/2022 1 1 Encounter Details Date Type Department Care Team (Latest Contact Info) Description 03/14/2022 Transcribe Orders Virtual Department 30 [place] [address] Alida Gutierrez PA [address] [facility] 103 [place] [address] [email or web address] Calculus of kidney (Primary Dx) Social History [...] high school, GED, job training, learning the Dutch language, technical skills, or developing parenting skills)? [...] Description 04/04/2025 1:30 PM EDT Office Visit [facility] [address] [place] [address] Elizabeth Samaniego MD [address] [facility], [address] [place] [address] [email or web address] Eloisa Burgos, PT 8 [place] [address] [email or web address] 04/11/2025 1:30 PM EDT Office Visit [facility] 8 [place] [address] Elizabeth Samaniego MD [address] [facility], [address] [place] [address] [email or web address] Eloisa Burgos, PT 8 [place] [address] [email or web address] 06/20/2025 12:15 PM EST Evaluation [facility] Audiology [address] [address] Heide Fried AuD [address] [place] [address] [email or web address] 06/20/2025 1:00 PM EST Office Visit [facility] Otology [address] [address] Joe Alonzo MD [address] [place] [address] - [place] [address] [email or web address] documented as of this encounter Results * [...] calculi,overall stable from 12/09/2020. 2.Constipation: Alida LAST IMG CT ABD/PELVIS Final Result documented in this encounter Visit Diagnoses Diagnosis Calculus of kidney- Primary Calculus of kidney documented in this encounter Additional Health Concerns Infection Onset Date Last Indicated Resolved Time CoV-Risk Comment:Per Ambulatory Triage Form 03/16/2024 03/16/202403/27 1:22 AM EDT Assessment Noted Time PHQ-2 Depression Total Score: 1 12/07/19 22 9:15 AM EDT documented as of this encounter Care Teams Funeral Service Manager Relationship Specialty Start Date End Date Elizabeth Samaniego MD [address] [place] [address] [email or web address] PCP - General 07/02/17 Zeina Rueda DO [address] [place] [address] Historical LMR Provider 05/23/17 Rainer Mendez MD [address] [place] [address] [email or web address] Historical LMR Provider 05/23/17 Daniella Villeda FNP [address] [place] [address] 7 [place] [address] Historical LMR Provider 05/23/17 Maya Wilson MD [address] [place] [address] 7 [place] [address] Historical LMR Provider 05/23/17 Elizabeth Samaniego MD [address] [place] [address] 7 [place] [address] Historical LMR Provider 05/23/17 Elizabeth Samaniego MD [address] [place] [address] 7 [place] [address] [email or web address] Insurance Assigned Provider 11/07/2302/06/24 documented as of this encounter Additional Source Comments The information contained in this document represents components of the legal health record. It is not the complete legal health record.[facility]
--- OUTSIDE RECORDS SUMMARY | 2025-03-28 13:49 | XMS_ITS | Encounter Summary ---
Author Organization [facility] Address [address] [address] Phone Care Team Providers Care Talkback Host Name Role Phone Petra Murillo Unavailable [phone] Alissa Young GLUE BONE CRUSHER Unavailable Zeina Rueda DO Unavailable Rainer Mendez MD Unavailable Jorge Hale DO Unavailable Daniella Villeda JANITOR HEAD Unavailable Louis Johnson MD Unavailable Maya Wilson MD Unavailable Dexter Lamb MD Unavailable Elizabeth Samaniego MD Unavailable Pilo Haro MD Unavailable Elizabeth Samaniego MD Primary Care Provider Elizabeth Samaniego MD Unavailable [phone] Encounter Details Date Type Department Care Team (Late st Contact Info) Description 07/05/2019 Procedure Pass [facility] PERIOPERATIVE DEPT 55 [place] [address] Social History Tobacco Use Types Packs/Day Years [...] Description 04/04/2025 1:30 PM EDT Office Visit [facility] 8 [place] [address] Elizabeth Samaniego MD [address] [place] [address] [email or web address] Eloisa Burgos, PT 8 [place] [address] 04/11/2025 1:30 PM EDT Office Visit [facility] 8 [place] [address] Elizabeth Samaniego MD [address] [place] [address] Eloisa Burgos, PT 8 [place] [address] 06/20/2025 12:15 PM EST Evaluation [facility] Audiology [address] [address] Heide Fride AuD [address] [place] [address] [email or web address] 06/20/2025 1:00 PM EST Office Visit [facility] Otology [address] [address] Joe Alonzo MD 243 [facility] [place] [address] [email or web address] documented as of this encounter Visit Diagnoses Not on filedocumented in this encounter Additional Health Concerns Infection Onset Date Last Indicated Resolved Time CoV-Risk 08/13/2020 08/13/2020 08/23/2020 1:25 AM EST CoV-Risk Comment:Per Ambulatory Triage Form 03/16/2024 03/16/202403/27 1:22 AM EDT documented as of this encounter Care Teams Talkback Host Relationship Specialty Start Date End Date Elizabeth Samaniego MD [address] [place] [address] [email or web address] PCP - General 07/02/17 Petra Murillo PA [facility] [place] [address] Historical LMR Provider 05/23/17 2 Alissa Young NP [address] [place] [address] Historical LMR Provider 05/23/17 2 Zeina Rueda DO [address] [place] [address] Historical LMR Provider 05/23/17 Rainer Mendez MD [address] [place] [address] [email or web address] Historical LMR Provider 05/23/17 Jorge Hale DO [address] [place] [address] [facility] [place] [address] Historical LMR Provider 05/23/17 08/10/21 Daniella Villeda FNP [address] [place] [address] 7 [place] [address] [email or web address] Historical LMR Provider 05/23/17 Louis Johnson MD [address] [place] [address], 2[address] [place] [address] Historical LMR Provider 05/23/17 08/10/21 Maya Wilson MD [address] [place] [address] 7 [place] [address] [email or web address] Historical LMR Provider 05/23/17 Dexter Lamb MD [address] [place] [address] 7 [place] [id number] Historical LMR Provider 05/23/17 2 Elizabeth Samaniego MD [address] [place] [address] 7 [place] [address] [email or web address] Historical LMR Provider 05/23/17 Pilo Haro MD [address] [place], [place] [address] [place] [address] [email or web address] Historical LMR Provider 05/23/17 08/10/21 Elizabeth Samaniego MD [address] [place] [address] 7 [place] [id number] [email or web address] Insurance Assigned Provider 11/07/2302/06/24 documented as of this encounter Additional Source Comments The information contained in this document represents components of the legal health record. It is not the complete legal health record.[facility]
--- OUTSIDE RECORDS SUMMARY | 2025-03-28 13:49 | XMS_ITS | Encounter Summary ---
Author Organization [facility] Address [address] [address] Phone Care Team Providers Care Extra Gang Supervisor Name Role Phone Petra Murillo Unavailable [phone] Alissa Young NP Unavailable Zeina Rueda DO Unavailable Rainer Mendez MD Unavailable Jorge Hale DO Unavailable Daniella VilledaP Unavailable Louis Johnson MD Unavailable Maya Wilson MD Unavailable Dexter Lamb MD Unavailable Elizabeth Samaniego MD Unavailable Pilo Haro MD Unavailable [phone] Elizabeth Samaniego MD Primary Care Provider [phone] Elizabeth Samaniego MD Unavailable Reason for Referral * MRI/CAT Scan - Closed Specialty Diagnoses / Procedures Referred By Contjose m t Referred To Contact Radiology Diagnoses Acute lower GI hemorrhage Procedures CT Abdomen/Pelvis Doris Sanchez PA Phone: tel: fax: Referral ID Status Reason Start Date Expiration Date Visits Re quested Visits Authorized [id number] Closed 09/22/2017 11/21/2017 1 1 Encounter Details Date Type Department Care Team (Late st Contact Info) Description 09/22/2017 Ancillary Orders Virtual Department 30 [place] [address] Doris Sanchez PA 10 [place] [address] Acute lower GI hemorrhage Social History Tobacco Use Types Packs/Day Years Used Date Smoking Tobacco: Never Smokeless Tobacco: Never Alcohol Use Standard Drinks/Week Comments Not Asked 0 (1 standard drink = 0.6 oz [...] Description 04/04/2025 1:30 PM EDT Office Visit [address] [address] Elizabeth Samaniego MD [address] [place] [address] Eloisa Burgos, PT 8 [place] [address] 04/11/2025 1:30 PM EDT Office Visit [address] [address] Elizabeth Samaniego MD [address] [place] [address] Eloisa Burgos, PT 8 [place] [address] [email or web address] 06/20/2025 12:15 PM EST Evaluation [facility] Audiology [address] [address] Heide Fried AuD 243 [place] [address] [email or web address] 06/20/2025 1:00 PM EST Office Visit [facility] Otology [address] [address] Joe Alonzo MD [address] [place] [address] [place] [address] [email or web address] documented as of this encounter Results * CT ABDOMEN/PELVIS WITH CONTRAST (09/25/2017 2:57 PM EST) Anatomical Region Laterality Modality Abdomen, Pelvis Computed Tomogra phy 09/25/2017 3:14 PM EST Impressions 09/25/2017 3:32 PM EST 1. Constipation. No evidence of colitis. 2. Gallbladder sludge. 3. Mildly progressive bilateral non-obstructive nephrolithiasis. 4. Additional nonacute findings as outlined. TOTAL CTDIvol: 16.4 mGy POS - [id number] Narrative 09/25/2017 3:32 PM EST COMPARISON: Nonenhanced CT abdomen pelvis 05/18/2008. TECHNIQUE: CT abdomen and pelvis with IV and oral contrast. Multiplanar reformatted images generated. Automated exposure control utilized. CT ABDOMEN AND PELVIS FINDINGS: Lung bases/heart: Imaged heart is normal. Lung bases are clear. Spleen: Normal. Liver: Normal. Gallbladder/biliary tree: There is dependent increased attenuation within the gallbladder representing sludge. No calcified stones. No biliary dilatation. Pancreas: Normal. Adrenal glands: Normal. Vasculature: No AAA or acute findings. Genitourinary: Increase in number and size multiple bilateral non-obstructing renal calculi. The largest in the right kidney measuring 1 cm in the upper pole and in the left kidney measuring 9 mm in the lower pole. No hydronephrosis or renal masses. There are too small to characterize subcentimeter cortical hypodensities in the right upper and lower renal poles indicative of cysts. Pelvis is partially limited due to streak artifact. Bladder is normal. Prostate is not enlarged. Gastrointestinal tract: Limited evaluation of the mid sigmoid colon due to streak artifact from the left hip prostheses. Stomach and small bowel are normal. Moderate colonic stool volume. No evidence of colitis. Normal appendix. Peritoneum/retroperitoneum: No lymphadenopathy, ascites or fluid collections. Stable periaortic retroperitoneal fat haziness and subcentimeter lymph nodes which is likely postinflammatory. Musculoskeletal: Stable small umbilical hernia. Stable grade 1 spondylolisthesis of L5 due to bilateral spondylolysis with severe L5-S1 disc space narrowing. Lumbarization of S1. Mild multilevel lower thoracic degenerative disc disease. No destructive bone lesions. Progressive severe right hip osteoarthritis. 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 Procedure Note Syed Strauss MD - 09/25/2017 COMPARISON: Nonenhanced CT abdomen pelvis 05/18/2008. TECHNIQUE: CT abdomen and pelvis with IV and oral contrast. Multiplanarreformatted images generated. Automated exposure control utilized. CT ABDOMEN AND PELVIS FINDINGS: Lung bases/heart: Imaged heart is normal. Lung bases are clear. Spleen: Normal. Liver: Normal. Gallbladder/biliary tree: There is dependent increased attenuation withinthe gallbladder representing sludge. No calcified stones. No biliarydilatation. Pancreas: Normal. Adrenal glands: Normal. Vasculature: No AAA or acute findings. Genitourinary: Increase in number and size multiple bilateralnon-obstructing renal calculi. The largest in the right kidney measuring1 cm in the upper pole and in the left kidney measuring 9 mm in the lowerpole. No hydronephrosis or renal masses. There are too small tocharacterize subcentimeter cortical hypodensities in the right upper andlower renal poles indicative of cysts. Pelvis is partially limited due tostreak artifact. Bladder is normal. Prostate is not enlarged. Gastrointestinal tract: Limited evaluation of the mid sigmoid colon due tostreak artifact from the left hip prostheses. Stomach and small bowel arenormal. Moderate colonic stool volume. No evidence of colitis. Normalappendix. Peritoneum/retroperitoneum: No lymphadenopathy, ascites or fluidcollections. Stable periaortic retroperitoneal fat haziness andsubcentimeter lymph nodes which is likely postinflammatory. Musculoskeletal: Stable small umbilical hernia. Stable grade 1spondylolisthesis of L5 due to bilateral spondylolysis with severe L5-S1disc space narrowing. Lumbarization of S1. Mild multilevel lowerthoracic degenerative disc disease. No destructive bone lesions.Progressive severe right hip osteoarthritis. Left total hip prosthesis isunchanged. IMPRESSION: 1. Constipation. No evidence of colitis. 2. Gallbladder sludge. 3. Mildly progressive bilateral non-obstructive nephrolithiasis. 4. Additional nonacute findings as outlined. TOTAL CTDIvol: 16.4 mGy POS - [id number] Drois LAST IMG CT ABD/PELVIS Final Res ult documented in this encounter Visit Diagnoses Diagnosis Acute lower GI hemorrhage Unspecified, hemorrhage of gastrointestinal tract Acute lower GI hemorrhage Unspecified, hemorrhage of gastrointestinal tract documented in this encounter Additional Health Concerns Infection Onset Date Last Indicated Resolved Time CoV-Risk 08/13/2020 08/13/2020 08/23/2020 1:25 AM EST CoV-Risk Comment:Per Ambulatory Triage Form 03/16/2024 03/16/202403/27 1:22 AM EDT documented as of this encounter Care Teams Extra Gang Supervisor Relationship Specialty Start Date End Date Elizabeth Samaniego MD [address] [place] [address], [address] [place] [address] [email or web address] PCP - General 07/02/17 Petra Murillo PA [facility] [place] [address] Historical LMR Provider 05/23/17 2 Alissa Young NP 1 [facility] [place] [address] Historical LMR Provider 05/23/17 2 Zeina Rueda DO [address] [place] [address] 7 [place] [address] [email or web address] Historical LMR Provider 05/23/17 Rainer Mendez MD [address] [place] [address] [email or web address] Historical LMR Provider 05/23/17 Jorge Hale DO [address] [place] [address] [facility], [place] [address] [email or web address] Historical LMR Provider 05/23/17 08/10/21 Daniella Villeda FNP [address] [place] [address] 7 [place] [address] [email or web address] Historical LMR Provider 05/23/17 Louis Johnson MD [address] [place] [address], [address] [place] [address] Historical LMR Provider 05/23/17 08/10/21 Maya Wilson MD [address] [place] [address] 7 [place] [address] Historical LMR Provider 05/23/17 Dexter Lamb MD [address] [place] [address] 7 [place] [address] Historical LMR Provider 05/23/17 2 Elizabeth Samaniego MD [address] [place] [address], [address] [place] [address] [email or web address] Historical LMR Provider 05/23/17 Pilo Haro MD [address] [place], [place] [address] [place] [address] [email or web address] Historical LMR Provider 05/23/17 08/10/21 Elizabeth Samaniego MD [address] [place] [address], [address] [place] [address] [email or web address] Insurance Assigned Provider 11/07/2302/06/24 documented as of this encounter Additional Source Comments The information contained in this document represents components of the legal health record. It is not the complete legal health record.[facility]
--- OUTSIDE RECORDS SUMMARY | 2025-03-28 13:49 | XMS_ITS | Encounter Summary ---
Author Organization [facility] Address 399 [facility] [address] [place] [address] Phone Care Team Providers Care Lab Systems Analyst Name Role Phone Zeina Rueda Carlos NGUYEN Unavailable [phone] Rainer Mendez MD Unavailable Daniella VilledaP Unavailable Maya Wilson MD Unavailable [phone] Elizabeth Samaniego MD Unavailable [phone] Elizabeth Samaniego MD Primary Care Provider [phone] Elizabeth Samaniego MD Unavailable Encounter Details Date Type Department Care Team (Late st Contact Info) Description 06/11/2022 Procedure Pass [facility], Ct Scan - [address] [address] Social History Tobacco Use Types Packs/Day Years [...] high school, GED, job training, learning the [place] language, technical skills, or developing parenting skills)? [...] AM EST documented as of this encounter Functional Status * Calculated C-SSRS Risk Score (Lifetime/Recent) Answer Date of Assessment Author No Risk Indicated 06/11/2022 10:25 PM Cate Escobar RN * [place] Suicide Severity Rating Scale (Screener/Recent Self-Report) Question Answer Date of Assessment Author 1. Wish to be (Past 1 Month) No 06/11/2022 10:25 PM Cate Sanford RN 2. Non-Specific Active Suici ben Thoughts (Past 1 Month) No 06/11/2022 10:25 PM EST Saray Schneider cia, RN 6. Suicidal Behavior (Lifetime) No 10:25 PM Cate Sanford RN documented as of this encounter Plan of Treatment Upcoming Encounters Date Type Department Care Team (Late st Contact Info) Description 04/04/2025 1:30 PM EDT Office Visit [facility] [address] [place] [id number] Elizabeth Samaniego MD [address] [place] [address], [address] [place] [address] [email or web address] Eloisa Burgos, PT 8 [place] [address] 04/11/2025 1:30 PM EDT Office Visit [facility] 8 [place] [address] Elizabeth Samaniego MD 234 [facility] 7 [place] [address] [email or web address] Eloisa Burgos, PT 8 [place] [address] [email or web address] 06/20/2025 12:15 PM EST Evaluation [facility] Audiology [address] [address] Heide Fried AuD [address] [place] [address] [email or web address] 06/20/2025 1:00 PM EST Office Visit [facility] Otology [address] [address] Joe Alonzo MD [address] [place] [address] - [place] [address] [email or web address] documented as of this encounter Visit Diagnoses Not on filedocumented in this encounter Additional Health Concerns Infection Onset Date Last Indicated Resolved Time CoV-Risk Comment:Per Ambulatory Triage Form 03/16/2024 03/16/202403/27 1:22 AM EDT Assessment Noted Time PHQ-2 Depression Total Score: 1 12/07/19 9:15 AM EDT documented as of this encounter Care Teams Lab Systems Analyst Relationship Specialty Start Date End Date Elizabeth Samaniego MD 234 [facility] 7 [place] [address] [email or web address] PCP - General 07/02/17 Zeina Rueda DO [address] [place] [address] 7 [place] [address] [email or web address] Historical LMR Provider 05/23/17 Rainer Mendez MD [address] [place] [address] [email or web address] Historical LMR Provider 05/23/17 Daniella Villeda FNP [address] [place] [address] 7 [place] [address] [email or web address] Historical LMR Provider 05/23/17 Maya Wilson MD [address] [place] [address] 7 [place] [address] [email or web address] Historical LMR Provider 05/23/17 Elizabeth Samaniego MD [address] [place] [address] 7 [place] [address] Historical LMR Provider 05/23/17 Elizabeth Samaniego MD [address] [place] [address] 7 [place] [address] [email or web address] Insurance Assigned Provider 11/07/2302/06/24 documented as of this encounter Additional Source Comments The information contained in this document represents components of the legal health record. It is not the complete legal health record.[facility]
--- OUTSIDE RECORDS SUMMARY | 2025-03-28 13:50 | XMS_ITS | Encounter Summary ---
Author Organization [facility] Address [address] [address] Phone Care Team Providers Care Registered Nurse Renal Name Role Phone Petra Murillo Unavailable [phone] Alissa Young UPHOLSTERY INSTRUCTOR Unavailable Zeina Rueda DO Unavailable Rainer Mendez MD Unavailable Jorge Hale DO Unavailable Daniella VilledaP Unavailable Louis Johnson MD Unavailable Maya Wilson MD Unavailable Dexter Lamb MD Unavailable [phone] Elizabeth Samaniego MD Unavailable [phone] Pilo Haro MD Unavailable Elizabeth Samaniego MD Primary Care Provider Elizabeth Samaniego MD Unavailable Encounter Details Date Type Department Care Team (Late st Contact Info) Description 05/07/2018 Procedure Pass [facility], [address] [address] Social History Tobacco Use Types Packs/Day Years [...] Description 04/04/2025 1:30 PM EDT Office Visit [facility] 8 [place] [address] Elizabeth Samaniego MD [address] [place] [address] [email or web address] Eloisa Burgos, PT 8 [place] [address] 04/11/2025 1:30 PM EDT Office Visit [facility] 8 [place] [address] Elizabeth Samaniego MD [address] [place] [address] Eloisa Burgos, PT 8 [place] [address] 06/20/2025 12:15 PM EST Evaluation [facility] Audiology [address] [address] Heide Fried AuD [address] [place] [address] [email or web address] 06/20/2025 1:00 PM EST Office Visit [facility] Otology [address] [address] Joe Alonzo MD [address] [place] [address] [place] [address] [email or web address] documented as of this encounter Visit Diagnoses Not on filedocumented in this encounter Additional Health Concerns Infection Onset Date Last Indicated Resolved Time CoV-Risk 08/13/2020 08/13/2020 08/23/2020 1:25 AM EST CoV-Risk Comment:Per Ambulatory Triage Form 03/16/2024 03/16/202403/27 1:22 AM EDT documented as of this encounter Care Teams Registered Nurse Renal Relationship Specialty Start Date End Date Elizabeth Samaniego MD [address] [place] [address] [email or web address] PCP - General 07/02/17 Petra Murillo PA [facility] [place] [address] Historical LMR Provider 05/23/17 2 Alissa Young UPHOLSTERY INSTRUCTOR [address] [place] [address] Historical LMR Provider 05/23/17 2 Zeina Rueda DO [address] [place] [address] [email or web address] Historical LMR Provider 05/23/17 Rainer Mendez MD [address] [place] [address] [email or web address] Historical LMR Provider 05/23/17 Jorge Hale DO [address] [place] [address] [facility] [place] [address] [email or web address] Historical LMR Provider 05/23/17 08/10/21 Daniella Villeda FNP [address] [place] [address] 7 [place] [address] [email or web address] Historical LMR Provider 05/23/17 Louis Johnson MD [address] [place] [address], 2nd [place] [address] [email or web address] Historical LMR Provider 05/23/17 08/10/21 Maya Wilson MD [address] [place] [address] 7 [place] [address] [email or web address] Historical LMR Provider 05/23/17 Dexter Lamb MD [address] [place] [address] 7 [place] [id number] Historical LMR Provider 05/23/17 2 Elizabeth Samaniego MD [address] [place] [address] 7 [place] [address] [email or web address] Historical LMR Provider 05/23/17 Pilo Haro MD [address] [place], [place] [address] [place] [phone] [email or web address] Historical LMR Provider 05/23/17 08/10/21 Elizabeth Samaniego MD [address] [place] [address] 7 [place] [address] [email or web address] Insurance Assigned Provider 11/07/2302/06/24 documented as of this encounter Additional Source Comments The information contained in this document represents components of the legal health record. It is not the complete legal health record.[facility]
--- OUTSIDE RECORDS SUMMARY | 2025-03-28 13:50 | XMS_ITS | Encounter Summary ---
Author Organization [facility] Address 399 [facility] [address] [place] [address] Phone Care Team Providers Care Fulfillment Mail Clerk Name Role Phone Petra Murillo Unavailable [phone] Alissa Young MANUFACTURING ENGINEER Unavailable [phone] Zeina Rueda DO Unavailable Rainer Mendez MD Unavailable Jorge Hale DO Unavailable Daniella Vilelda FARM MANAGEMENT TEACHER Unavailable Louis Johnson MD Unavailable Maya Wilson MD Unavailable [phone] Dexter Lamb MD Unavailable Elizabeth Samaniego MD Unavailable Pilo Haro MD Unavailable Elizabeth Samaniego MD Primary Care Provider [phone] Elizabeth Samaniego MD Unavailable [phone] Encounter Details Date Type Department Care Team (Latest Contact Info) Description 02/10/2018 Transcribe Orders [facility] Laboratory [address] Floor [place], [place] [id number] Nola Najera PA [address] [address] [email or web address] Benign prostatic hyperplasia without lower urinary tract symptoms (Primary Dx) Social History Tobacco Use Types [...] Description 04/04/2025 1:30 PM EDT Office Visit [facility] 8 [place] [address] Elizabeth Samaniego MD 234 [facility] 7 [place] [address] [email or web address] Eloisa Burgos, PT 8 [place] [address] 04/11/2025 1:30 PM EDT Office Visit [facility] 8 [place] [address] Elizabeth Samaniego MD [address] [facility] [address] [place] [address] Eloisa Burgos, PT 8 [place] [address] 06/20/2025 12:15 PM EST Evaluation [facility] [address] [facility] 2nd [place] [address] Heide Fried, Sebastian 243 [place] [address] [email or web address] 06/20/2025 1:00 PM EST Office Visit [facility] Otology Main [place] [address] [facility] 2nd [place] [address] Joe Alonzo MD 243 [facility] [place] [address] [email or web address] documented as of this encounter Results * PSA (screening) (02/10/2018 9:21 AM EDT) PSA 0.74 0 - 4.00 ng/mL [facility] Blood 02/10/2018 9:21 AM EDT 02/10/2018 9:24 AM EDT Nola LAST LAB BLOOD ORDERABLES Final Result Performing Organization Address City/State/[facility] Co de Phone Number [facility] [address] [place] [address] documented in this encounter Visit Diagnoses Diagnosis Benign prostatic hyperplasia without lower urinary tract symptoms- Primary documented in this encounter Additional Health Concerns Infection Onset Date Last Indicated Resolved Time CoV-Risk 08/13/2020 08/13/2020 08/23/2020 1:25 AM EST CoV-Risk Comment:Per Ambulatory Triage Form 03/16/2024 03/16/202403/27 1:22 AM EDT documented as of this encounter Care Teams Fulfillment Mail Clerk Relationship Specialty Start Date End Date Elizabeth Samaniego MD [address] [place] [address], [address] [place] [address] PCP - General 07/02/17 Petra Murillo [place] [address] Historical LMR Provider 05/23/17 2 Alissa Young NP 1 [place] [address] Historical LMR Provider 05/23/17 2 Zeina Rueda DO [address] [place] [address] 7 [place] [address] [email or web address] Historical LMR Provider 05/23/17 Rainer Mendez MD [address] [place] [address] [email or web address] Historical LMR Provider 05/23/17 Jorge Hale DO [address] [place] [address] [facility], [place] [address] [email or web address] Historical LMR Provider 05/23/17 08/10/21 Daniella Villeda FNP [address] [place] [address] Historical LMR Provider 05/23/17 Louis Johnson MD [address] [place] [address] Historical LMR Provider 05/23/17 08/10/21 Maya Wilson MD [address] [place] [address] Historical LMR Provider 05/23/17 Dexter Lamb MD [address] [place] [address] Historical LMR Provider 05/23/17 2 Elizabeth Samaniego MD [address] [place] [address] [address] [place] [address] [email or web address] Historical LMR Provider 05/23/17 Pilo Hrao MD [address] [place] [address] [address] [place] [address] [email or web address] Historical LMR Provider 05/23/17 08/10/21 Elizabeth Samaniego MD [address] [place] [address] [address] [place] [address] [email or web address] Insurance Assigned Provider 11/07/2302/06/24 documented as of this encounter Additional Source Comments The information contained in this document represents components of the legal health record. It is not the complete legal health record.[facility]
--- OUTSIDE RECORDS SUMMARY | 2025-03-28 13:50 | XMS_ITS | Encounter Summary ---
Author Organization [facility] Address [address] [facility] [address] [place] [address] Phone Care Team Providers Care Research Compliance Specialist Name Role Phone Zeina Rueda Carlos NGUYEN Unavailable [phone] Rainer Mendez MD Unavailable [phone] Daniella VilledaP Unavailable [phone] Maya Wilson MD Unavailable Elizabeth Samaniego MD Unavailable [phone] Elizabeth Samaniego MD Primary Care Provider [phone] Elizabeth Samaniego MD Unavailable Encounter Details Date Type Department Care Team (Late st Contact Info) Description 09/03/2023 Procedure Pass [address] [place] [address] Social History Tobacco Use Types Packs/Day Years Used Date Smoking Tobacco: Never Smokeless Tobacco: Never Alcohol Use Standard Drinks/Week Comments No 0 (1 standard drink = 0.6 oz pur e alcohol) Child or Family Care Answer Date Record ed Do you have problems with on e of the following making it difficult for you to work, study, or receive health care? No 09/05/2022 Education Answer Date Recorded Are you interested in help w ith more adult education (for example, completing high school, GED, job training, learning the [place] language, technical skills, or developing parenting skills)? No 09/05/2022 Are you concerned about learning? Not on file 09/05/2022 No 09/05/2022 Yes 09/05/2022 Food Answer Date Recorded Within the past 6 months we worried whether our food would run out before we got money to buy more. Never True 09/05/2022 Within the past 6 months the food we bought just didn't last and we didn't have enough money to get more. Never True Residential Stability Answer Date Recor ded What is your housing situation today? I have brianda sing 09/05/2022 How many times have you move d in the past 12 months? Zero (I did not move) 09/05/2022 Paying for Meds Answer Date Recorded Do you have trouble paying for medicines? No 09/05/2022 Paying Utility Bills Answer Date Record ed Do you have trouble paying your heating or elect ricity bill? No 09/05/2022 Transportation Answer Date Recorded Has the lack of transportati on kept you from medical appointments or from getting medications? No 09/05/2022 Unemployment Answer Date Recorded Are you currently unemployed or working on a part-time or temporary basis, and looking for work? No 09/05/2022 Digital Access Answer Date Recorded No 12/24/2022 No 12/24/2022 Reliable internet access at home? Not on file 12/24/2022 Device with a working camera? Not on file Sex and Gender Information Value Date Recorded Sex Assigned at Male 08/24/2018 12:47 AM EST Legal Sex Male 9:25 AM EDT Gender Identity Male 08/24/2018 12:47 AM EST Sexual Orientation Straight 08/24/2018 12 :47 AM EST documented as of this encounter Plan of Treatment Upcoming Encounters Date Type Department Care Team (Late st Contact Info) Description 04/04/2025 1:30 PM EDT Office Visit [facility] [address] [place] [address] Elizabeth Samaniego MD [address] [place] [address], [address] [place] [address] [email or web address] Eloisa Burgos, PT [address] [place] [address] 04/11/2025 1:30 PM EDT Office Visit [facility] [address] [place] [address] Elizabeth Samaniego MD [address] [place] [address] [address] [place] [address] Eloisa Burgos, PT [address] [place] [address] 06/20/2025 12:15 PM EST Evaluation [facility] Audiology [address] [address] Heide Fried AuD [address] [place] [address] [email or web address] 06/20/2025 1:00 PM EST Office Visit [facility] Otology [address] [address] Joe Alonzo MD [address] [place] [address] - [place] [address] [email or web address] documented as of this encounter Visit Diagnoses Not on filedocumented in this encounter Additional Health Concerns Infection Onset Date Last Indicated Resolved Time CoV-Risk Comment:Per Ambulatory Triage Form 03/16/2024 03/16/202403/27 1:22 AM EDT Assessment Noted Time PHQ-2 Depression Total Score: 2 09/05/19 23 3:42 PM EST documented as of this encounter Care Teams Research Compliance Specialist Relationship Specialty Start Date End Date Elizabeth Samaniego MD [address] [place] [address], [address] [place] [address] [email or web address] PCP - General 07/02/17 Zeina Rueda DO [address] [place] [address] [address] [place] [address] [email or web address] Historical LMR Provider 05/23/17 Rainer Mendez MD [address] [place] [id number] [email or web address] Historical LMR Provider 05/23/17 Daniella Villeda FNP [address] [place] [address] [address] [place] [address] [email or web address] Historical LMR Provider 05/23/17 Maya Wilson MD [address] [place] [address] [address] [place] [address] [email or web address] Historical LMR Provider 05/23/17 Elizabeth Samaniego MD [address] [place] [address] [address] [place] [address] [email or web address] Historical LMR Provider 05/23/17 Elizabeth Samaniego MD [address] [place] [address] [address] [place] [address] [email or web address] Insurance Assigned Provider 11/07/2302/06/24 documented as of this encounter Additional Source Comments The information contained in this document represents components of the legal health record. It is not the complete legal health record.[facility]
--- OUTSIDE RECORDS SUMMARY | 2025-03-28 13:50 | XMS_ITS | Clinical Summary ---
Author Organization [facility], Address [address] [address] Phone Care Team Providers Care Ceramics Engineer Name Role Phone Elizabeth Samaniego MD Primary Care Provider [phone] Social History Tobacco Use Types Packs/Day Years Used Date Smoking Tobacco: Never Assessed Sex and Gender Information Value Date Recorded Sex Assigned at Not on file Legal Sex Male 9:39 AM EDT Gender Identity Not on file Sexual Orientation Not on file Plan of Treatment Health Maintenance Due Date Last Done Comments Colorectal Cancer Screening: Annual FOBT 2009 Colorectal Cancer Screening: Colonoscopy 2009 Colorectal Cancer Screening: Sigmoidoscopy 2009 Pneumococcal Vaccine: 50+ Ye ars (1 of 1 - PCV) 2010 Influenza Vaccine (#1) 2025 Hepatitis B Vaccine Aged Out No longe r eligible based on patient's age to complete this topic Insurance [facility] Care Teams Ceramics Engineer Relationship Specialty Start Date End Date Elizabeth Samaniego MD [address] [place] [address], [address] [place] [address] PCP - General Family Medicine 10/29/23
--- OUTSIDE RECORDS SUMMARY | 2025-03-28 13:50 | XMS_ITS | Clinical Summary ---
Author Organization [facility] Address [address] [address] Phone Care Team Providers Care Auxiliary Equipment Operator Name Role Phone Zeina Rueda Carlos NGUYEN Unavailable [phone] Rainer Mendez MD Unavailable Daniella VilledaP Unavailable Maya Wilson MD Unavailable [phone] Elizabeth Samaniego MD Unavailable [phone] Elizabeth Samaniego MD Primary Care Provider Allergies No known active allergies Medications omeprazole (PRILOSEC) 20 MG tablet Take 20 mg by mouth daily. Active oxybutynin (DITROPAN-XL) 10 MG 24 hr tabletIndications: Medication refill TAKE 1 & 1/2 TABLETS BY MOUTH ONCE DAILY 135 tablet 2 08/14/19 23 Active buPROPion (WELLBUTRIN XL) 300 MG ER 24 hr tabletIndications: Generalized anxiety disorder TAKE 1 TABLET (300 MG TOTAL) BY MOUTH EVERY MORNING. 90 tablet 3 06/13/20 24 Active propranoloL (INDERAL) 10 MG immediate release tabletIndications: Generalized anxiety disorder Take 1 tablet (10 mg total) by mouth nightly at bedtime as needed (can use 2 pills at once if needed for anxiety). 10 tablet 1 12/24/19 25 Active betamethasone dipropionate 0.05 % ointmentIndication s:Rash and other nonspecific skin eruption Apply topically 2 (two) times a day. Rash on leg. Use for 10 days at a time. 60 g 1 12/24/19 25 Active alfuzosin (UROXATRAL) 10 mg 24 hr tabletIndications: Benign prostatic hyperplasia with urinary frequency Take 1 tablet (10 mg total) by mouth daily. 90 tablet 3 12/24/19 25 Active sertraline (ZOLOFT) 100 MG tabletIndications: Generalized anxiety disorder Take 1 tablet (100 mg total) by mouth daily. 90 tablet 1 12/24/19 25 Active clonazePAM (KLONOPIN) 0.5 MG tabletIndications: Anxiety state Take 1 tablet (0.5 mg total) by mouth 2 (two) times a day as needed for anxiety. 15 tablet 1 02/17/20 25 Active rosuvastatin (CRESTOR) 10 MG tabletIndications: Mixed hyperlipidemia Take 1 tablet (10 mg total) by mouth daily. 90 tablet 1 03/03/20 25 Active gabapentin (NEURONTIN) 300 MG capsuleIndications :Medication refill TAKE 1 CAPSULE BY MOUTH IN THE MORNING, THEN 1 CAPSULE AT NOON, AND 3 CAPSULES AT NIGHT. 450 capsule 03/17/20 25 Active gabapentin (NEURONTIN) 300 MG capsuleIndications :Medication refill TAKE 1 CAPSULE BY MOUTH IN THE MORNING, THEN 1 CAPSULE AT NOON, AND 3 CAPSULES AT NIGHT. 450 capsule 08/01/20 24 025 Discontin ued(Reord er) Active Problems Problem Noted Date Diagnosed Date Family history of cardiovascular disease 025 Mixed hyperlipidemia 12/30/2024 Overview (03/03/2025): Cac over 400 Started crestor 10 mg and asa 81 mg Stage 3a chronic kidney disease 08/20/2023 Overview (10/23/2023): I am following, labs every 6 months Last labs showed normal GFR, no protein in urine I wonder if reduced GFR in the past has been associated with his multiple kidney stones that we are present He is followed by urology for his kidney stones but I will make referral to nephrology to make sure that there is nothing else they would add to his care. Also ultrasound kidneys ordered. Low testosterone level in male 09/12/2022 Overview (10/23/2023): Borderline now 2022 Having low energy in afternoons, lower sexual desire, wants to maximize physical performance. Mood disorder. We will repeat and add LH, FSH for initial workup. He tried testosterone patch and this made his depression worse, he has stopped and testosterone levels are quite good ! Varicose veins of both lower extremities 020 Overview (06/08/2020): Extensive varicosities both legs He would like to see vascular surgeon for eval Cervical spine arthritis 06/21/2019 Overview (12/23/2024): With a lot of neck pain. Tried chiropractor which did not help. Going to see [facility] 06/2019 for this. Injections with [facility] 2023 did help somewhat! Primary osteoarthritis involving multiple joints 12/09/2018 Overview (05/03/2019): Is seeing Dr. Cary now. Also seeing Dr. Mendez for his hip. His hip is now the most painful thing and is thinking about a second replacement. Takes Aleve but is wondering about other NSAIDs for daily use. He was on meloxicam in the past and we can think about this again in the future if needed. First we will try adding lower dose of gabapentin on in the morning and midday. Start with 300 in the morning, 300 at lunch and 900 continued at night. Check in with me in a few weeks let me know how this is going. He declines to switch Prozac to Cymbalta at this point as his mood has been quite good. Assessment & Plan (12/09/2018 7:11 PM EDT): I reviewed with patient chronic and frequently progressive nature of osteoarthritis. He was reassured that based on his history and physical examination in addition to most recent lab work I am not finding signs or symptoms suggestive for rheumatoid arthritis or other systemic rheumatic diseases at this time. Joint protection, energy conservation. Avoid falls, injuries, overuse, stair climbing, squatting, kneeling and heavy lifting. Continue gentle, regular range of motion, stretching and muscle strengthening exercises. Bring body weight as close as possible to ideal range for his height. Since he did not find meloxicam helpful and in fact admits that Tylenol works a little bit better I asked him to switch meloxicam to Tylenol and give a topical capsaicin chance to shoulder defect. He is asked to use it carefully every night or couple of times a day plus in night as needed and tolerated x 3 weeks to make sure that he gives it enough time for full effect. Since he is not responding favorably to recent cortisone injection I provided him with literature on Visco supplementation and knee problems prepared by specialists from [employer] Musculoskeletal and Skin diseases. Class 2 obesity due to exces s calories without serious comorbidity with body mass index (BMI) of 35.0 to 35.9 in adult 12/09/2018 Assessment & Plan (12/09/2018 7:07 PM EDT): Portion control. Limit concentrated sugars, saturated fats and calories in the diet. Keep well-hydrated. If unable to achieve expected goal consider formal dietary/nutritional support. Routine general medical exam ination at a health care facility 04/29/2018 Overview (10/23/2023): colonsocpy - 2017, 5 years - 2022 with endoscopy - 5-7 years for colonosocpy Skin - I do this He sees urology and they do psa and meds His dad had MA so think about stress test of CAC score in the future if he would like but his risk factors are low Spondylolisthesis 04/29/2018 Globus sensation 04/29/2018 Overview (04/29/2018): For the past 6 months he has been feeling like there is something in his throat, mostly when he is eating food and drinking. Nothing gets stuck. No regurgitation. Cannot palpate anything externally. No obvious change in voice. We will refer to GI for possible endoscopy to look into this. He has never had endoscopy. Most likely to be worsening reflux. We will add daily H2 armida on to daily PPI. Prefers this over doubling PPI dose. Back pain 04/28/2018 Overview (12/23/2024): Spondylolisthesis Pain is not getting better Would be willing to see chiro Seeing [facility] and MRI from 2023 L spine shows L5/S1 nerve root stenosis. Injections with [facility] and sports were not helpful. We will refer him to [facility] pain management, and try physical therapy. Benign prostatic hyperplasia with lower urinary tract symptoms 04/28/2018 Overview (12/23/2024): sees urology and takes oxybutynin. 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 Continue both. 12/2024 does not feel like Prozac is working as well anymore, we will try to switch to Zoloft. 40 mg of Prozac switched to Zoloft 100 mg. Assessment & Plan (12/09/2018 7:13 PM EDT): Continue Prozac as prescribed and close follow-up with prescribing MD. Optimize stress management strategies. Continue regular relaxation/meditation sessions. Keep engaged in hobbies/favorite activities GERD (gastroesophageal reflux disease) 8 Overview (09/12/2022): He was taking prilosec daily but stopped Take famotadine PRN but still has some breakthrough sx Assessment & Plan (12/09/2018 7:12 PM EDT): Stop meloxicam. Okay to take Tylenol instead. Avoid late, large, spicy meals. Keep headboard elevated at 45 angle for nighttime. Continue Prilosec daily as prescribed and needed. Insomnia 04/28/2018 Overview (12/23/2024): gabapentin helps with cpap - 1200 mg at night Occasional clonazepam helps relax his muscles at night CBD oil now is helping! Wants to try propranolol to see if this helps Obsessive-compulsive disorder 04/28/2018 Overview (09/12/2022): does not do repetitive things but has repetitive negative intrucive thoughts sice college, which leads to anxiety and sometimes panic has learned how to control this to some extent with therapy, SSRI, wellbutrin Keep SSRI levels low as causing some decreased sexual desire potentially CBD oil is helping now! Gabapentin at night and PRN buspar helpful Arthralgia of hip 04/28/2018 Overview (11/25/2019): need ppx anx prior to dental per ortho for his left hip replacement Right hip is getting towards needing replacement and he is seeing [facility] for this - scheduled 07/2019 but could not do this based on insurance He now needs [facility] but this has been postponed due to COVID. He is going to have an anterior approach. Sleep apnea 04/28/2018 Overview (04/29/2018): wears CPAP gabapentin to help sleep has some periodic limb movement as well. Increased frequency of urination 04/28/2018 Overview (04/29/2018): oxybutinin helps a lot runs in his family Blood in stool 09/10/2017 Overview (04/29/2018): Had a time when he had BRB in toilet and f/u colonocopy showed hemorrhoids None recently Assessment & Plan (09/10/2017 12:35 PM EST): Christofer presents with blood in his stool for the past two BM's. I suspect a colitis and he will be treated with cipro and flagyl. I reviewed his most recent colonoscopy on 01/2017 and this was reassuring. I suspect a colitis at this time. He was advised of bowel rest, a liquid diet for the next day or two and then to increase as tolerated. He was also given a referral to GI-Dr. Rubi today. He will call if there is any other issues. If the bleeding continues he will go to the ED. He understands and agrees. Resolved Problems Problem Noted Date Diagnosed Date Resolved Date COVID-19 virus infection 03/16/2024 Assessment & Plan (03/16/2024 4:26 PM EDT): Virtual Visit Attestation Modality: interactive audio (phone only) Provider Location, state disclosed to patient: practice location Patient Location: home Patient State: [place] tested positive for COVID this morning. His symptoms are mild. I gave guidance regarding rest, fluids and [id number] medication as needed. I informed him that if his symptoms get worse he is a candidate for Paxlovid treatment. I reviewed his most recent lab work and his previous medical history-no contraindication. I did advise him to hold his BPH medication and clonazepam while taking the Paxlovid if he chooses to take this. I informed him that if his symptoms are the same tomorrow as they are today or better then he does not need this medication. I did describe the side effects of Paxlovid. I gave him guidance regarding quarantining. I informed him to call if there are any other issues or concerns. He understands and agrees. 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 Assessment & Plan (12/09/2018 7:14 PM EDT): Take the lowest dose, with least frequency, for shortest time. Remember to take it always with food. Favor topical over oral preparations. JANIS (obstructive sleep apnea) 12/09/2018 12/11/2020 Overview (12/11/2020): Uses cpap nightly Assessment & Plan (12/09/2018 7:06 PM EDT): Continue using CPAP nightly. Work on reducing body weight closer to ideal range for his height. On SSRI therapy 12/09/2018 05/03/2019 Assessment & Plan (12/09/2018 7:14 PM EDT): Monitor for mood swings, increased muscle rigidity and temperature intolerance. Chronic sinusitis 06/03/2018 08/20/2023 Overview (06/03/2018): Has had maxillary sinus surgery in the distant past and does get infections occasionally. He has not been on steroids with abx in the past He will try chon med, flonase and augmentin for this acute episode 06/03/18 Varicose veins of both lower extremities with pain 04/29/2018 09/12/2022 Assessment & Plan (12/09/2018 7:06 PM EDT): Importance of reducing body weight as close as possible to ideal range for his height stressed and strongly encouraged. Put supportive stockings first thing in the morning while in bed before taking legs off the bed. Wear supportive stockings throughout the day and take them off for night rest. Chronic pain of left knee 04/29/2018 Overview (04/29/2018): He has arthritis and is seeing ortho for acute exacerbation steroid injection 04/2018 did not help Arthritis 04/28/2018 05/03/2019 Overview (06/03/2018): s/p total hip and has in knees and shoulders as well sees ortho diclofenac 2 times per day Would like to see rheum to see if they think anything systemic is contributing. Acute right-sided thoracic back pain 01/13/2018 08/20/2023 Assessment & Plan (01/13/2018 12:36 PM EDT): Christofer was diagnosed with a strained rhomboid and a radiculopathy of her cervical region. She was advised to take prednisone as directed and the valium as directed. He was also advised to undergo the exercises given in the office today, to use heat as needed, and to drink plenty of water. He will call if there is any other issues. Piriformis syndrome of right side 12/09/2017 08/20/2023 Assessment & Plan (12/09/2017 12:35 PM EDT): Christofer was diagnosed with right sided piriformis syndrome and he was advised to treat with the prednisone burst as above, to use heat, use motrin as directed with food, and to go for the above PT script given today. He will call in 3-4 weeks if this has not improve at which point I will refer him to ortho. He understands and agrees. Right hip pain 12/09/2017 05/03/2019 Assessment & Plan (12/09/2017 12:38 PM EDT): Christofer has right hip pain and he informs me that he has had issues with arthritis of his hip about a year ago. He will go for another image study today and I will update him with the results. Encounters Date Type Department Care Team Description 03/28/2025 10:30 AM EDT Office Visit [address] [place] [address] Elizabeth Samaniego MD Yount, Elizabeth B, PT Lumbar back pain with radiculopathy affecting left lower extremity (Primary Dx) 03/21/2025 1:30 PM EDT Office Visit [address] [place] [address] Elizabeth Samaniego MD Yount, Elizabeth B, PT Lumbar back pain with radiculopathy affecting left lower extremity (Primary Dx) 03/17/[address] [address] Ant Mcmahon, DO Medication Refill 03/14/2025 1:30 PM EDT Office Visit [address] [place] [address] Elizabeth Samaniego MD Yount, Elizabeth B, PT Lumbar back pain with radiculopathy affecting left lower extremity (Primary Dx) 03/07/2025 1:30 PM EDT Office Visit [address] [place] [address] Elizabeth Samaniego MD Yount, Elizabeth B, PT Lumbar back pain with radiculopathy affecting left lower extremity (Primary Dx) 03/03/[address] [address] Janneth Whitten LPN CAC results 03/02/2025 Orders Only [facility] [address] [place] [address] ProviderJeffrey MD 03/01/2025 Orders Only [facility] [address] [place] [address] ProviderJeffrey MD 02/28/2025 2:15 PM EDT Office Visit [facility] [address] [place] [address] Elizabeth Samaniego MD LorettaEloisa, PT Lumbar back pain with radiculopathy affecting left lower extremity (Primary Dx) from Last 3 Months Immunizations Immunization Administration Dates Next Due Hepatitis A, Adult 12/11/2020,06/08/2020 Hepatitis B Adult 09/03/1992,04/10/1992,03/13/19 92 Influenza Quadrivalent Prese rvative Free IM 04/29/2018 Influenza, Unspecified Formulation 05/08,05/03/2022,04/17/2020,04/24 MMR 12/23/2024,10/27/2024,02/16/1992 Pneumococcal conjugate PCV13 10/12/2014 Pneumococcal polysaccharide PPSV23 06/03/2021 RSV Vaccine (monovalent, adjuvanted) 06/23/2024 Rabies-im 04/04/2003, 3,03/13/2003,03/09,03/06/2003 Td (adult) 5 Lf Tetanus Toxo id, PF, Adsorbed 08/13/2002 Tdap 03/13/2017,10/14/2006 Zoster recombinant 12/11/2020,06/08/2020 Family History Medical History Relation Comments No Known Problems Brother CV disease Father Alcohol abuse Mother Cancer Paternal Grandfather No Known Problems Sister 1 No Known Problems Sister 2 Relation Status Comments Brother Alive Father (Age 61) [place] age 61 Mother Paternal Grandfather Sister 1 Alive Sister 2 Alive Social History Tobacco Use Types Packs/Day Years Used Date Smoking Tobacco: Never Smokeless Tobacco: Never Tobacco Cessation:Counseling Given: Not Answered Alcohol Use Standard Drinks/Week Comments No 0 [...] high school, GED, job training, learning the M[place]ese language, technical skills, or developing parenting skills)? [...] Orientation Straight 08/24/2018 12 :47 AM EST Last Filed Vital Signs Vital Sign Reading Time Taken Comments Blood Pressure 108/64 12/23/2024 8:02 AM EDT Pulse 82 12/23/2024 8:02 AM EDT Temperature 36.6 C (97.8 F) 12/23/2024 8:02 AM EDT Respiratory Rate 18 01/30/2023 11:40 PM EDT Oxygen Saturation 95% 12/23/2024 8:02 AM EDT Inhaled Oxygen Concentration - - Weight 112 kg (247 lb) 12/23/2024 8:02 AM EDT Height 177.8 cm (5' 10 ) 12/23/2024 8:02 AM EDT Body Mass Index 35.44 12/23/2024 8:02 AM EDT Plan of Treatment Upcoming Encounters Date Type Department Care Team (Late st Contact Info) Description 04/04/2025 1:30 PM EDT Office Visit [address] [place] [address] Elizabeth Samaniego MD [address] [place] [address] Eloisa Burgos, PT [address] [place] [address] 04/11/2025 1:30 PM EDT Office Visit [address] [place] [address] Elizabeth Samaniego MD [address] [place] [id number] Eloisa Burgos, PT [address] [place] [address] 06/20/2025 12:15 PM EST Evaluation [facility] Audiology [address] [address] Heide Fried AuD [address] [place] [address] [email or web address] 06/20/2025 1:00 PM EST Office Visit [facility] Otology [address] [address] Joe Alonzo MD [address] [facility] [place] [address] [email or web address] Due Date Last Done Comments COLOGUARD 2005 FIT TEST 2005 FOBT 2005 SIGMOIDOSCOPY 2005 VIRTUAL COLONOSCOPY 2005 INFLUENZA VACCINE (#1) 2025 , 05/03/2022, 04/17/2020, Additional history exists DEPRESSION SCREENING 12/22/2025 12/22/2024 PNEUMOCOCCAL VACCINES (50+ years) (3 of 3 - PCV20 or PCV21) 06/03/2026 06/03/2021, 10/12/2014 Adult Td,Tdap Booster 03/13/2027 03/13/2017 , 10/14/2006, 08/13/2002 SCREENING FOR DIABETES 12/24/2027 12/23/2024, 2023 COLONOSCOPY 01/30/2028 01/29/2023, 09/04, 09/29/2017, Additional history exists COLORECTAL CANCER SCREENING 01/30/2028 LIPID PANEL 12/23/2029 12/23/2024, 08/03, 09/08/2022, Additional history exists HEPATITIS A VACCINES Aged Out 12/11/2020, 06/08/20 20 No longer eligible based on patient's age to complete this topic ZOSTER VACCINES Completed 12/11/2020, 06/08/2020 COVID-19 VACCINE Completed 06/23/2024, , 02/01/2022, Additional history exists RSV VACCINE Completed 06/23/2024 SMOKING STATUS SCREENING (Once After 26 Yrs) Completed 11/03/2024 HIB VACCINES Aged Out No longer eligi ble based on patient's age to complete this topic MENINGOCOCCAL VACCINES (ACWY) Aged Out No longer eligible based on patient's age to complete this topic MENINGOCOCCAL VACCINES (B) Aged Out N o longer eligible based on patient's age to complete this topic Medical Devices Not on file Procedures Procedure Name Priority Date/Time Associated Diagnosis Comments OUTSIDE XR SPINE REPORT ONLY Routine 03/02/2025 2:22 PM EDT OUTSIDE CARDIOLOGY Routine 03/01/2025 2: 04 PM EDT LIPID PANEL Routine 12/23/2024 9:19 AM EDT Routine general medical examination at a [facility] facility HM COLONOSCOPY FOR RESULT ENTRY ONLY Routine 01/29/2023 from Last 3 Months or Most Recently Relevant to Health Maintenance Results * Outside XR Spine Report Only (03/02/2025 2:22 PM EDT) us Historical Provider [email or web address] XR SPINE Final Res ult * Outside Cardiology Report Only (03/01/2025 2:04 PM EDT) us Historical Provider CV CARDIAC SERVICES ORDER ALINA Final Result * (ABNORMAL) Lipid panel (12/23/2024 9:19 AM EDT) HDL 53 mg/dL [facility] Comment: Interpretation <40 mg/dL: Low HDL cholesterol (major risk factor for CHD) Greater than or equal to 60 mg/dL: High HDL cholesterol ( negative risk factor for CHD) HDL - cholesterol is affected by a number of factors, e.g. smoking, excerise, hormones, sex and age. CHOLESTEROL 218 0 - 240 mg/dL [facility] TRIGLYCERIDES 99 30 - 160 mg/dL [facility] LDL 145(H) 50 - 129 mg/dL [facility] Comment: LDL levels in terms of risk for coronary heart disease: <100 mg/dL: Optimal 100-129 mg/dL: Near or above optimal 130-159 mg/dL: Borderline high 160-189 mg/dL: High >190 mg/dL: Very High CARDIAC RISK RATIO 4.1 3.4 - 5.0 C [facility] Blood 12/23/2024 9:19 AM EDT 12/23/2024 9:25 AM EDT us Elizabeth Samaniego MD LAB BLOOD ORDERABLES Final R esult [address] [address] * COLONOSCOPY FOR RESULT ENTRY ONLY (01/29/2023) us Historical Provider HEALTH MAINTENANCE Final Result from Last 3 Months or Most Recently Relevant to Health Maintenance Insurance [facility] [place] [address] [place] [address] [facility] [place] PPO [employer] Advance Directives For more information, please contact: [phone] (9AM - 5PM [facility], Thursday-Thursday) Documents on File Type Date Recorded Patient Hotel Room Attendant Expl anation Advance Directive - Non Epic LMR 02/02/2015 12:00 AM Care Teams Auxiliary Equipment Operator Relationship Specialty Start Date End Date Elizabeth Samaniego MD [address] [place] [address] 7 [place] [address] PCP - General 07/02/17 Zeina Rueda DO [address] [place] [address] 7 [place] [address] Historical LMR Provider 05/23/17 Rainer Mendez MD [address] [place] [id number] [email or web address] Historical LMR Provider 05/23/17 Daniella Villeda FNP [address] [place] [id number] [email or web address] Historical LMR Provider 05/23/17 Maya [place] MD [address] [place] [address] 7 [place] [address] [email or web address] Historical LMR Provider 05/23/17 Elizabeth Samaniego MD [address] [place] [address] 7 [place] [address] [email or web address] Historical LMR Provider 05/23/17 Additional Source Comments The information contained in this document represents components of the legal health record. It is not the complete legal health record.[facility]
--- OUTSIDE RECORDS SUMMARY | 2025-03-28 13:50 | XMS_ITS | Encounter Summary ---
Author Organization [facility] Address [address] [place] [address] Phone Care Team Providers Care Supervisor Fertilizer Name Role Phone Elizabeth Samaniego MD Primary Care Provider Encounter Details Date Type Department Care Team (Late st Contact Info) Description 10/29/2023 Documentation Only [facility] [place], [address] [place] [address] [place], [place] [address] [place] [address] Social History Tobacco Use Types [...] on filedocumented in this encounter Care Teams Supervisor Fertilizer Relationship Specialty Start Date End Date Elizabeth Samaniego MD [address] [place] [address], [facility] 7 [place], [place] [phone] PCP - General Family Medicine 10/29/23 documented as of this encounter
--- OUTSIDE RECORDS SUMMARY | 2025-03-28 13:50 | XMS_ITS | Encounter Summary ---
Author Organization [facility] Address [address] [address] Phone Care Team Providers Care Conveyor Maintenance Mechanic Name Role Phone Petra Murillo Unavailable [phone] Alissa Young HOME SECURITY ALARM INSTALLER Unavailable Zeina Rueda DO Unavailable Rainer Mendez MD Unavailable Jorge Hale DO Unavailable Daniella Villeda INSTRUCTOR WARPER Unavailable Louis Johnson MD Unavailable Maya Wilson MD Unavailable Dexter Lamb MD Unavailable [phone] Elizabeth Samaniego MD Unavailable Pilo Haro MD Unavailable Elizabeth Samaniego MD Primary Care Provider Elizabeth Samaniego MD Unavailable [phone] Encounter Details Date Type Department Care Team (Late st Contact Info) Description 02/05/2018 Ancillary Orders Virtual Department 30 [place], [place] [phone] Alex Romano MD [address] [facility], [address] [place] [address] [email or web address] Calculus, kidney Social History Tobacco Use Types Packs/Day Years [...] Description 04/04/2025 1:30 PM EDT Office Visit [facility] 8 [place] [address] Elizabeth Samaniego MD [address] [place] [address], [address] [place] [address] Eloisa Burgos, PT 8 [place] [address] 04/11/2025 1:30 PM EDT Office Visit [facility] 8 [place] [address] Elizabeth Samaniego MD [address] [place] [address], [address] [place] [address] Eloisa Burgos, PT 8 [place] [address] 06/20/2025 12:15 PM EST Evaluation [facility] Audiology [address] [address] Heide Fried, Sebastian [address] [place] [address] [email or web address] 06/20/2025 1:00 PM EST Office Visit [facility] Otology [facility] 243 [facility] 2nd [place] [address] Joe Alonzo MD [address] [place] [address] - [place] [address] [email or web address] documented as of this encounter Results * US Kidneys and Bladder (02/08/2018 5:39 PM EDT) Anatomical Region Laterality Modality Abdomen, Kidney Ultrasound 02/08/2018 6:01 PM EDT Impressions 02/08/2018 6:06 PM EDT Persistent numerous non-obstructing intrarenal stones bilaterally. Similar overall burden to the CT in September allowing for difference in modality. No sign of obstruction, infection or tumor today. POS [id number] Narrative 02/08/2018 6:06 PM EDT Compare to CT 09/25/2017 Numerous echogenic structures in both kidneys some of which actually shadowing others have twinkle artifact while others have neither. These probably represent widespread bilateral non-obstructing stones. Largest on the right: Upper pole 8 mm, mid 6 mm, lower 7 mm Largest in the left colon Upper pole 8 mm, mid 8 mm, lower pole 10 mm Neither collecting system is dilated. No evidence of pyelonephritis, cortical scarring or perinephric fluid collections. No cystic or solid masses were identified by ultrasound. Prevoid bladder volume is about 276 cc and the post-void volume 10 cc. No focal or generalized bladder wall thickening or filling defects. Procedure Note Ant Estrella MD - 02/08/[address] 09/25/2017 Numerous echogenic structures in both kidneys some of which actuallyshadowing others have twinkle artifact while others have neither. Theseprobably represent widespread bilateral non-obstructing stones. Largest on the right: Upper pole 8 mm, mid 6 mm, lower 7 mm Largest in the left colon Upper pole 8 mm, mid 8 mm, lower pole 10 mm Neither collecting system is dilated. No evidence of pyelonephritis, cortical scarring or perinephric fluidcollections. No cystic or solid masses were identified by ultrasound. Prevoid bladder volume is about 276 cc and the post-void volume 10 cc. Nofocal or generalized bladder wall thickening or filling defects. IMPRESSION: Persistent numerous non-obstructing intrarenal stones bilaterally. Similaroverall burden to the CT in September allowing for difference in modality.No sign of obstruction, infection or tumor today. POS [id number] us Alex Romano MD IMG RENAL Final Result documented in this encounter Visit Diagnoses Diagnosis Calculus, kidney Calculus of kidney Calculus, kidney Calculus of kidney documented in this encounter Additional Health Concerns Infection Onset Date Last Indicated Resolved Time CoV-Risk 08/13/2020 08/13/2020 08/23/2020 1:25 AM EST CoV-Risk Comment:Per Ambulatory Triage Form 03/16/2024 03/16/202403/27 1:22 AM EDT documented as of this encounter Care Teams Conveyor Maintenance Mechanic Relationship Specialty Start Date End Date Elizabeth Samaniego MD 234 [facility] 7 [place] [address] [email or web address] PCP - General 07/02/17 Petra Murillo PA [facility] [place] [address] Historical LMR Provider 05/23/17 2 Alissa Young NP [facility] [place] [address] Historical LMR Provider 05/23/17 2 Zeina Rueda DO 234 [facility] 7 [place] [address] Historical LMR Provider 05/23/17 Rainer Mendez MD [address] [place] [address] [email or web address] Historical LMR Provider 05/23/17 Jorge Hale DO [address] [place] [address] Orthopedics & Sports Medicine, [place] [address] Historical LMR Provider 05/23/17 08/10/21 Daniella Villeda FNP [address] [place] [address] [email or web address] Historical LMR Provider 05/23/17 Louis Johnson MD [address] [place] [address], 2nd [place] [address] Historical LMR Provider 05/23/17 08/10/21 Maya Wilson MD [address] [place] [address] Historical LMR Provider 05/23/17 Dexter Lamb MD [address] [place] [phone] Historical LMR Provider 05/23/17 Elizabeth Estrada MD [address] [place] [address] Historical LMR Provider 05/23/17 Pilo Haro MD [address] [place] [address] [address] [place] [phone] [email or web address] Historical LMR Provider 05/23/17 08/10/21 Elizabeth Samaniego MD [address] [place] [address] [address] [place] [address] [email or web address] Insurance Assigned Provider 11/07/2302/06/24 documented as of this encounter Additional Source Comments The information contained in this document represents components of the legal health record. It is not the complete legal health record.[facility]
--- OUTSIDE RECORDS SUMMARY | 2025-03-28 13:50 | XMS_ITS | Encounter Summary ---
Author Organization [facility] Address 399 [facility] [address] [place] [address] Phone Care Team Providers Care Brake Coupler Road Freight Name Role Phone Petra Murillo Unavailable [phone] Alissa Young NP Unavailable Zeina Rueda DO Unavailable Rainer Mendez MD Unavailable Jorge Hale DO Unavailable Daniella VilledaP Unavailable Louis Johnson MD Unavailable Maya Wilson MD Unavailable Dexter Lamb MD Unavailable Elizabeth Samaniego MD Unavailable Pilo Haro MD Unavailable [phone] Elizabeth Samaniego MD Primary Care Provider Elizabeth Samaniego MD Unavailable Encounter Details Date Type Department Care Team (Latest Contact Info) Description 09/25/2017 Transcribe Orders [facility] Laboratory 30 [place] [address] Doris Sanchez PA 10 [place] [address] Routine general medical examination at a health care facility (Primary Dx) Social History Tobacco Use Types [...] Description 04/04/2025 1:30 PM EDT Office Visit [facility] 8 [place] [address] Elizabeth Samaniego MD 234 [facility], [address] [place] [address] Eloisa Burgos, PT 8 [place] [address] [email or web address] 04/11/2025 1:30 PM EDT Office Visit [facility] 8 [place] [address] Elizabeth Samaniego MD 234 [facility], [address] [place] [address] Eloisa Burgos, PT 8 [place] [address] [email or web address] 06/20/2025 12:15 PM EST Evaluation [facility] [address] [address] Heide Fried, AuD 243 [place] [address] [email or web address] 06/20/2025 1:00 PM EST Office Visit [facility] 243 [facility] 2nd [place] [address] Joe Alonzo MD 243 [facility] [place] [address] [email or web address] documented as of this encounter Results * PT-INR (09/25/2017 12:55 PM EST) PT 11.5 10.2 - 12.9 sec [facility] INR 1.0 0.9 - 1.1 [facility] Comment:Therapeutic range fo r oral Vitamin K antagonists: 2.0-3.5 Blood 09/25/2017 12:5 5 PM EST 09/25/2017 12:58 PM EST us Doris LAST LAB BLOOD ORDERABLES Final Result [address] [address] * Ferritin (09/25/2017 12:55 PM EST) Pathologist [facility] FERRITIN 67 30 - 400 ug/L [facility] Blood 09/25/2017 12:5 5 PM EST 09/25/2017 12:58 PM EST Doris LAST LAB BLOOD ORDERABLES Final Result [address] [address] * C-Reactive Protein (09/25/2017 12:55 PM EST) Pathologist [facility] C REACTIVE PROTEIN 0.1 0 - 0.5 mg/L [facility] Blood 09/25/2017 12:5 5 PM EST 09/25/2017 12:58 PM EST us Doris LAST LAB BLOOD ORDERABLES Final Result [facility] 30 [place] [address] * (ABNORMAL) CBC and differential (09/25/2017 12:55 PM EST) WBC 4.74 3.40 - 11.20 K/uL [facility] RBC 4.74 4.50 - 5.50 M/uL [facility] HGB 13.7 13.0 - 17.0 g/dL [facility] HCT 40.9 40.0 - 51.0 % [facility] PLT 235 130 - 400 K/uL [facility] MCV 86.3 79.0 - 98.0 fL [facility] MCH 28.9 27.0 - 34.8 pg [facility] MCHC 33.5 31.5 - 36.0 g/dL [facility] RDW 12.6 10.8 - 14.6 % [facility] MPV 9.5 9.4 - 12.4 fl [facility] NRBC 0.00 /100 WBCs [facility] ABSOLUTE NRBC 0.00 K/uL [facility] DIFF METHOD Auto [facility] NEUTS 45.2(L) 45.30 - 77.70 % [facility] LYMPHS 37.8 12.30 - 39.70 % [facility] MONOS 12.2 4.10 - 12.80 % [facility] EOS 4.0 0 - 7.2 % [facility] BASOS 0.6 0 - 2.80 % [facility] Granulocytes, immature (%) 0.2 0.0 - 0.9 % [facility] ABSOLUTE NEUTS 2.14 1.40 - 7.70 K/uL [facility] ABSOLUTE LYMPHS 1.79 0.60 - 3.20 K/uL [facility] ABSOLUTE MONOS 0.58 0.11 - 0.59 K/uL [facility] ABSOLUTE EOS 0.19 0.01 - 0.50 K/uL [facility] ABSOLUTE BASOS 0.03 0.00 - 0.08 K/uL [facility] Granulocytes, immature 0.01 0.00 - 0.05 K/uL [facility] Blood 09/25/2017 12:5 5 PM EST 09/25/2017 12:58 PM EST us Doris LAST LAB BLOOD ORDERABLES Final Result [facility] 30 [place] [address] documented in this encounter Visit Diagnoses Diagnosis Routine general medical examination at a health care facility- Primary documented in this encounter Additional Health Concerns Infection Onset Date Last Indicated Resolved Time CoV-Risk 08/13/2020 08/13/2020 08/23/2020 1:25 AM EST CoV-Risk Comment:Per Ambulatory Triage Form 03/16/2024 03/16/202403/27 1:22 AM EDT documented as of this encounter Care Teams Brake [address] Freight Relationship Specialty Start Date End Date Elizabeth Samaniego MD [address] [place] [address] 7 [place] [address] [email or web address] PCP - General 07/02/17 Petra Murillo PA [facility] [place] [address] Historical LMR Provider 05/23/17 2 Alissa Young NP [address] [place] [address] Historical LMR Provider 05/23/17 2 Zeina Ruead DO [address] [place] [address] 7 [place] [address] [email or web address] Historical LMR Provider 05/23/17 Rainer Mendez MD [address] [place] [address] [email or web address] Historical LMR Provider 05/23/17 Jorge Hale DO [address] [place] [address] Orthopedics & Sports Medicine, [facility] [place] [address] [email or web address] Historical LMR Provider 05/23/17 08/10/21 Daniella Villeda FNP [address] [place] [address] 7 [place] [address] [email or web address] Historical LMR Provider 05/23/17 Louis Johnson MD [address] [place] [address], 2[address] [place] [address] [email or web address] Historical LMR Provider 05/23/17 08/10/21 Maya Wilson MD [address] [place] [address] 7 [place] [address] [email or web address] Historical LMR Provider 05/23/17 Dexter Lamb MD [address] [place] [address] 7 [place] [id number] Historical LMR Provider 05/23/17 Elizabeth Estrada MD [address] [place] [address] 7 [place] [address] [email or web address] Historical LMR Provider 05/23/17 Pilo Haro MD [address] [place], [place] [address] [place] [phone] [email or web address] Historical LMR Provider 05/23/17 08/10/21 Elizabeth Samaniego MD [address] [place] [address] 7 [place] [address] [email or web address] Insurance Assigned Provider 11/07/2302/06/24 documented as of this encounter Additional Source Comments The information contained in this document represents components of the legal health record. It is not the complete legal health record.[facility]
--- OUTSIDE RECORDS SUMMARY | 2025-03-28 13:50 | XMS_ITS | Encounter Summary ---
Author Organization [facility] Address 399 [facility] [address] [place] [address] Phone Care Team Providers Care Wood Milling Machine Tender Name Role Phone Zeina Rueda Carlso NGUYEN Unavailable [phone] Rainer Mendez MD Unavailable [phone] Daniella VilledaP Unavailable Maya Wilson MD Unavailable Elizabeth Samaniego MD Unavailable [phone] Elizabeth Samaniego MD Primary Care Provider [phone] Elizabeth Samaniego MD Unavailable [phone] Encounter Details Date Type Department Care Team (Late st Contact Info) Description 09/03/2023 Procedure Pass [address] [place] [address] Social History Tobacco Use Types Packs/Day Years [...] high school, GED, job training, learning the Congolese language, technical skills, or developing parenting skills)? [...] Description 04/04/2025 1:30 PM EDT Office Visit [facility] [address] [place] [address] Elizabeth Samaniego MD [address] [place] [address], [address] [place] [address] Eloisa Burgos, PT 8 [place] [address] [email or web address] 04/11/2025 1:30 PM EDT Office Visit [facility] 8 [place] [address] Elizabeth Samaniego MD [address] [place] [address] 7 [place] [address] Eloisa Burgos, PT 8 [place] [address] [email or web address] 06/20/2025 12:15 PM EST Evaluation [facility] Audiology [address] [address] Heide Fried AuD [address] [place] [address] [email or web address] 06/20/2025 1:00 PM EST Office Visit [facility] Otology [address] [address] Joe Alonzo MD [address] [place] [address] [place] [address] [email or web address] documented as of this encounter Visit Diagnoses Not on filedocumented in this encounter Additional Health Concerns Infection Onset Date Last Indicated Resolved Time CoV-Risk Comment:Per Ambulatory Triage Form 03/16/2024 03/16/202403/27 1:22 AM EDT Assessment Noted Time PHQ-2 Depression Total Score: 2 09/05/19 23 3:42 PM EST documented as of this encounter Care Teams Wood Milling Machine Tender Relationship Specialty Start Date End Date Elizabeth Samaniego MD [address] [place] [address], [address] [place] [address] [email or web address] PCP - General 07/02/17 Zeina Rueda DO [address] [place] [address] 7 [place] [address] [email or web address] Historical LMR Provider 05/23/17 Rainer Mendez MD [address] [place] [address] [email or web address] Historical LMR Provider 05/23/17 Daniella Villeda FNP [address] [place] [address] 7 [place] [address] [email or web address] Historical LMR Provider 05/23/17 Maya Wilson MD [address] [place] [address] 7 [place] [address] [email or web address] Historical LMR Provider 05/23/17 Elizabeth Samaniego MD [address] [place] [address] 7 [place] [address] [email or web address] Historical LMR Provider 05/23/17 Elizabeth Samaniego MD [address] [place] [address] 7 [place] [address] [email or web address] Insurance Assigned Provider 11/07/2302/06/24 documented as of this encounter Additional Source Comments The information contained in this document represents components of the legal health record. It is not the complete legal health record.[facility]
--- OUTSIDE RECORDS SUMMARY | 2025-03-28 13:50 | XMS_ITS | Encounter Summary ---
Author Organization [facility] Address 399 [facility] [address] [place] [address] Phone Care Team Providers Care Mail Censor Name Role Phone Zeina Rueda Unavailable [phone] Rainer Mendez MD Unavailable Daniella Villeda GEOPHYSICAL PROSPECTING SURVEYOR Unavailable [phone] Maya Wilson MD Unavailable [phone] Elizabeth Samaniego MD Unavailable [phone] Elizabeth Samaniego MD Primary Care Provider [phone] Encounter Details Date Type Department Care Team (Late st Contact Info) Description 03/02/2025 Orders Only [facility] 234 [place] [address] Provider, MD Jeffrey [address] [place] [address] Social History Tobacco Use Types Packs/Day Years [...] high school, GED, job training, learning the Thai language, technical skills, or developing parenting skills)? [...] Description 04/04/2025 1:30 PM EDT Office Visit [facility] 8 [place] [address] Elizabeth Samaniego MD [address] [facility], [address] [place], [place] [address] Eloisa Burgos, PT 8 [place] [address] 04/11/2025 1:30 PM EDT Office Visit [facility] 8 [place] [address] Elizabeth Samaniego MD [address] [facility], [address] [place], [place] [id number] [email or web address] Eloisa Burgos, PT 8 [place] [address] 06/20/2025 12:15 PM EST Evaluation [facility] Audiology [address] [address] Heide Fried AuD [address] [place] [address] [email or web address] 06/20/2025 1:00 PM EST Office Visit [facility] Otology [address] [address] Joe Alonzo MD [address] [place] [address] - [place] [address] [email or web address] documented as of this encounter Procedures Procedure Name Priority Date/Time Associated Diagnosis Comments OUTSIDE XR SPINE REPORT ONLY Routine 03/02/2025 2:22 PM EDT documented in this encounter Results * Outside XR Spine Report Only (03/02/2025 2:22 PM EDT) us Historical Provider MD [place] XR SPINE Final Res ult documented in this encounter Visit Diagnoses Not on filedocumented in this encounter Additional Health Concerns Assessment Noted Time PHQ-2 Depression Total Score: 1 12/23/19 25 9:57 PM EDT documented as of this encounter Care Teams Mail Censor Relationship Specialty Start Date End Date Elizabeth Samaniego MD [address] [place] [address] [email or web address] PCP - General 07/02/17 Zeina Rueda DO [address] [place] [address] [email or web address] Historical LMR Provider 05/23/17 Rainer Mendez MD [address] [place] [address] [email or web address] Historical LMR Provider 05/23/17 Daniella Villeda FNP [address] [place] [address] [email or web address] Historical LMR Provider 05/23/17 Maya Wilson MD [address] [place] [address] [email or web address] Historical LMR Provider 05/23/17 Elizabeth Samaniego MD [address] [place] [address] Historical LMR Provider 05/23/17 documented as of this encounter Additional Source Comments The information contained in this document represents components of the legal health record. It is not the complete legal health record.[facility]
--- OUTSIDE RECORDS SUMMARY | 2025-03-28 13:50 | XMS_ITS | Encounter Summary ---
Author Organization [facility] Address [address] [facility] [address] [place] [address] Phone Care Team Providers Care Liaison Engineer Name Role Phone Petra Murillo Unavailable [phone] Alissa Young NP Unavailable [phone] Zeina Rueda DO Unavailable [phone] Rainer Mendez MD Unavailable Jorge Hale DO Unavailable Daniella VilledaP Unavailable Louis Johnson MD Unavailable [phone] Maya Wilson MD Unavailable Dexter Lamb MD Unavailable Elizabeth Samaniego MD Unavailable Pilo Haro MD Unavailable Elizabeth Samaniego MD Primary Care Provider Elizabeth Samaniego MD Unavailable [phone] Encounter Details Date Type Department Care Team (Late st Contact Info) Description 08/22/2019 Ancillary Orders [facility], X-Ray - [address] [address] Callie Alvarado, TRANSPORTATION PROJECT MANAGER [address] [place] [address] [email or web address] Left shoulder pain, unspecified chronicity Social History Tobacco Use Types Packs/Day Years [...] Description 04/04/2025 1:30 PM EDT Office Visit Psychiatric 8 [place] [address] Elizabeth Samaniego MD 234 [facility] 7 [place] [address] Eloisa Burgos, PT 8 [place] [address] 04/11/2025 1:30 PM EDT Office Visit Psychiatric 8 [place] [address] Elizabeth Samaniego MD 234 [facility] [address] [place] [address] Eloisa Burgos, PT 8 [place] [address] 06/20/2025 12:15 PM EST Evaluation [facility] Main [place] 243 [facility] 2nd [place] [address] Heide Fried, Sebastian 243 [place] [address] [email or web address] 06/20/2025 1:00 PM EST Office [place] [facility] [place] Main [address] [address] Joe Alonzo MD [address] [place] [address] [place] [address] [email or web address] documented as of this encounter Results * XR SHOULDER 2 VIEWS (LEFT) (08/22/2019 1:30 PM EST) Anatomical Region Laterality Modality Shoulder Left Radiographic Jen ging 08/22/2019 1:57 PM EST Impressions 08/22/2019 1:58 PM EST Mild degenerative changes at the acromioclavicular joint. POS - [id number] Narrative 08/22/2019 1:58 PM EST HISTORY: Pain. COMPARISON: None VIEWS: Three views FINDINGS: No fractures, subluxations or dislocations. Mild spurring at the acromioclavicular joint. Glenohumeral joint well-maintained. No suspicious lytic or blastic lesions within the bones. No suspicious soft tissue calcifications. Procedure Note Alfonso Smiley MD - 08/22/2019 HISTORY: Pain. COMPARISON: None VIEWS: Three views FINDINGS: No fractures, subluxations or dislocations. Mild spurring at theacromioclavicular joint. Glenohumeral joint well-maintained. Nosuspicious lytic or blastic lesions within the bones. No suspicious softtissue calcifications. IMPRESSION: Mild degenerative changes at the acromioclavicular joint. POS - [id number] us Callie Alvarado TRANSPORTATION PROJECT MANAGER IMG XR UPPER EXTREMITY Final Res ult documented in this encounter Visit Diagnoses Diagnosis Left shoulder pain, unspecified chronicity Left shoulder pain, unspecified chronicity documented in this encounter Additional Health Concerns Infection Onset Date Last Indicated Resolved Time CoV-Risk 08/13/2020 08/13/2020 08/23/2020 1:25 AM EST CoV-Risk Comment:Per Ambulatory Triage Form 03/16/2024 03/16/202403/27 1:22 AM EDT documented as of this encounter Care Teams Liaison Engineer Relationship Specialty Start Date End Date Elizabeth Samaniego MD [address] [place] [address] [email or web address] PCP - General 07/02/17 Petra Murillo PA [facility] [place] [address] Historical LMR Provider 05/23/17 2 Alissa Young NP [address] [place] [address] Historical LMR Provider 05/23/17 2 Zeina Rueda DO [address] [place] [address] [email or web address] Historical LMR Provider 05/23/17 Rainer Mendez MD [address] [place] [address] [email or web address] Historical LMR Provider 05/23/17 Jorge Hale DO [address] [place] [address] Orthopedics & Sports Medicine, [facility] [place] [address] [email or web address] Historical LMR Provider 05/23/17 08/10/21 Daniella Villeda FNP [address] [place] [address] [email or web address] Historical LMR Provider 05/23/17 Louis Johnson MD 22 [facility], 2nd [place] [address] Historical LMR Provider 05/23/17 08/10/21 Maya Wilson MD 234 [facility] [address] [place] [address] [email or web address] Historical LMR Provider 05/23/17 Dexter Lamb MD 236 [facility] 7 [place] [phone] Historical LMR Provider 05/23/17 2 Elizabeth Samaniego MD [address] [place] [address] 7 [place] [address] [email or web address] Historical LMR Provider 05/23/17 Pilo Haro MD [address] [place], [place] [address] [place] [address] [email or web address] Historical LMR Provider 05/23/17 08/10/21 Elizabeth Samaniego MD 234 [facility] 7 [place] [address] [email or web address] Insurance Assigned Provider 11/07/2302/06/24 documented as of this encounter Additional Source Comments The information contained in this document represents components of the legal health record. It is not the complete legal health record.[facility]
--- OUTSIDE RECORDS SUMMARY | 2025-03-28 13:50 | XMS_ITS | Encounter Summary ---
Author Organization [facility] Address [address] [address] Phone Care Team Providers Care Scrum Project Manager Name Role Phone Petra Murillo Unavailable [phone] Alissa Young INNERSOLE FITTER Unavailable Zeina Rueda DO Unavailable Rainer Mendez MD Unavailable Jorge Hale DO Unavailable Daniella Villeda FIRE EXTINGUISHER MECHANIC Unavailable Louis Johnson MD Unavailable Maya Wilson MD Unavailable Dexter Lamb MD Unavailable [phone] Elizabeth Samaniego MD Unavailable Pilo Haro MD Unavailable Elizabeth Samaniego MD Primary Care Provider Elizabeth Samaniego MD Unavailable [phone] Encounter Details Date Type Department Care Team (Late st Contact Info) Description 02/05/2018 Ancillary Orders Virtual Department 30 [place], [place] [phone] Alex Romano MD 3640 [facility], [address] [place] [address] [email or web address] Calculus of kidney; Benign prostatic hyperplasia with lower urinary tract symptoms, symptom details unspecified; Frequency of micturition Social History Tobacco Use Types Packs/Day Years [...] Description 04/04/2025 1:30 PM EDT Office Visit [facility] 8 [place] [address] Elizabeth Samaniego MD 234 [facility] 7 [place] [address] [email or web address] Eloisa Burgos, PT 8 [place] [address] 04/11/2025 1:30 PM EDT Office Visit [facility] 8 [place] [address] Elizabeth Samaniego MD 234 [facility] 7 [place] [address] [email or web address] Eloisa Burgos, PT 8 [place] [address] 06/20/2025 12:15 PM EST Evaluation [facility] Main [address] [address] Heide Fried, Sebastian [address] [place] [address] [email or web address] 06/20/2025 1:00 PM EST Office [place] [facility] 243 [facility] 2nd [place] [address] Joe Alonzo MD 243 [facility] [place] [address] [email or web address] documented as of this encounter Results * XR ABDOMEN 1 VIEW (02/08/2018 5:38 PM EDT) Anatomical Region Laterality Modality Abdomen Radiographic Jen ging 02/08/2018 7:04 PM EDT Impressions 02/08/2018 7:07 PM EDT Numerous bilateral intrarenal stones POS [id number] Narrative 02/08/2018 7:07 PM EDT AP abdomen single view, 3 images due to size. Compare to current ultrasound and prior CT 09/25/2017. The kidneys are somewhat obscured by stool but there do appear to be at least 5 intrarenal calcifications on the left measuring 5, 6, 5, 6 and 6 mm from top to bottom. The right side is more obscured there are probably at least 4 calcifications measuring 9 mm, 3 mm, 2 mm and 3 mm in the upper and mid kidney. No obvious ureteral or bladder calculi. Bowel gas pattern is unremarkable Procedure Note Ant Estrella MD - 02/08/2018 AP abdomen single view, 3 images due to size. Compare to current ultrasound and prior CT 09/25/2017. The kidneys are somewhat obscured by stool but there do appear to be atleast 5 intrarenal calcifications on the left measuring 5, 6, 5, 6 and 6mm from top to bottom. The right side is more obscured there are probably at least 4calcifications measuring 9 mm, 3 mm, 2 mm and 3 mm in the upper and midkidney. No obvious ureteral or bladder calculi. Bowel gas pattern is unremarkable IMPRESSION: Numerous bilateral intrarenal stones POS [id number] Alex Romano MD IMG XR ABDOMEN Final Result documented in this encounter Visit Diagnoses Diagnosis Calculus of kidney Benign prostatic hyperplasia with lower urinary tract symptoms, symptom details unspecified Frequency of micturition Urinary frequency Calculus of kidney documented in this encounter Additional Health Concerns Infection Onset Date Last Indicated Resolved Time CoV-Risk 08/13/2020 08/13/2020 08/23/2020 1:25 AM EST CoV-Risk Comment:Per Ambulatory Triage Form 03/16/2024 03/16/202403/27 1:22 AM EDT documented as of this encounter Care Teams Scrum Project Manager Relationship Specialty Start Date End Date Elizabeth Samaniego MD [address] [place] [address] 7 [place] [address] [email or web address] PCP - General 07/02/17 Petra Murillo PA [facility] [place] [address] Historical LMR Provider 05/23/17 2 Alissa Young NP 1 [place] [address] Historical LMR Provider 05/23/17 2 Zeina Rueda DO 234 [facility] 7 [place] [address] Historical LMR Provider 05/23/17 Rainer Mendez MD 4 [place] [address] [email or web address] Historical LMR Provider 05/23/17 Jorge Hale DO [address] [place] [address] Orthopedics & Sports Medicine, [facility] [place] [address] Historical LMR Provider 05/23/17 08/10/21 Daniella Villeda FNP [address] [place] [address] 7 [place] [address] [email or web address] Historical LMR Provider 05/23/17 Louis Johnson MD [address] [place] [address], 2nd [place] [address] [email or web address] Historical LMR Provider 05/23/17 08/10/21 Maya Wilson MD [address] [place] [address] 7 [place] [address] [email or web address] Historical LMR Provider 05/23/17 Dexter Lamb MD [address] [place] [address] 7 [place] [address] Historical LMR Provider 05/23/17 2 Elizabeth Samaniego MD [address] [place] [address] 7 [place] [address] [email or web address] Historical LMR Provider 05/23/17 Pilo Haro MD [address] [place], [place] [address] [place] [address] [email or web address] Historical LMR Provider 05/23/17 08/10/21 Elizabeth Samaniego MD [address] [place] [address] [address] [place] [address] [email or web address] Insurance Assigned Provider 11/07/2302/06/24 documented as of this encounter Additional Source Comments The information contained in this document represents components of the legal health record. It is not the complete legal health record.[facility]
--- OUTSIDE RECORDS SUMMARY | 2025-03-28 13:50 | XMS_ITS | Encounter Summary ---
Author Organization [facility] Address [address] [facility] [address] [place] [address] Phone Care Team Providers Care City Dispatch Supervisor Name Role Phone Petra Murillo Unavailable [phone] Alissa Young CUSTOMER ACCOUNT MANAGER Unavailable Zeina Rueda DO Unavailable Rainer Mendez MD Unavailable Jorge Hale DO Unavailable Daniella Villeda MARKING STITCHER Unavailable Louis Johnson MD Unavailable Maya Wilson MD Unavailable Dexter Lamb MD Unavailable Elizabeth Samaniego MD Unavailable Pilo Haro MD Unavailable Elizabeth Samaniego MD Primary Care Provider [phone] Elizabeth Samaniego MD Unavailable Encounter Details Date Type Department Care Team (Late st Contact Info) Description 12/09/2020 Procedure Pass [facility], Ct Scan - [address] [address] Social History Tobacco Use Types Packs/Day Years [...] high school, GED, job training, learning the Slovenian language, technical skills, or developing parenting skills)? [...] Description 04/04/2025 1:30 PM EDT Office Visit [facility] 8 [place], [place] [phone] Elizabeth Samaniego MD [address] [place] [address], [address] [place], [place] [address] Eloisa Burgos, PT 8 [place] [address] [email or web address] 04/11/2025 1:30 PM EDT Office Visit [facility] 8 [place] [address] Elizabeth Samaniego MD 234 [facility], [address] [place] [address] Eloisa Burgos, PT 8 [place] [address] [email or web address] 06/20/2025 12:15 PM EST Evaluation [facility] [address] [address] Heide Fried AuD [address] [place] [address] [email or web address] 06/20/2025 1:00 PM EST Office Visit [facility] Otology [address] [address] Joe Alonzo MD [address] [place] [address] [place] [address] [email or web address] documented as of this encounter Visit Diagnoses Not on filedocumented in this encounter Additional Health Concerns Infection Onset Date Last Indicated Resolved Time CoV-Risk Comment:Per Ambulatory Triage Form 03/16/2024 03/16/202403/27 1:22 AM EDT Assessment Noted Time PHQ-2 Depression Total Score: 1 12/10/19 21 9:48 PM EDT documented as of this encounter Care Teams City Dispatch Supervisor Relationship Specialty Start Date End Date Elizabeth Samaniego MD 234 [facility], [address] [place] [address] [email or web address] PCP - General 07/02/17 Petra Murillo PA [facility] [place] [address] Historical LMR Provider 05/23/17 2 Alissa Young NP 1 [place] [address] Historical LMR Provider 05/23/17 2 Zeina Rueda DO [address] [place] [address] 7 [place] [address] [email or web address] Historical LMR Provider 05/23/17 Rainer Mendez MD [address] [place] [address] [email or web address] Historical LMR Provider 05/23/17 Jorge Hale DO [address] [place] [address] Orthopedics & Sports Medicine, [place] [address] [email or web address] Historical LMR Provider 05/23/17 08/10/21 Daniella Villeda FNP [address] [place] [address] 7 [place] [address] [email or web address] Historical LMR Provider 05/23/17 Louis Johnson MD [address] [place] [address], 2nd [place] [address] Historical LMR Provider 05/23/17 08/10/21 Maya Wilson MD [address] [place] [address] 7 [place] [address] [email or web address] Historical LMR Provider 05/23/17 Dexter Lamb MD [address] [place] [address] 7 [place] [address] Historical LMR Provider 05/23/17 2 Elizabeth Samaniego MD [address] [place] [address] 7 [place] [address] [email or web address] Historical LMR Provider 05/23/17 Pilo Haro MD [address] [place], [place] [address] [place] [phone] [email or web address] Historical LMR Provider 05/23/17 08/10/21 Elizabeth Samaniego MD [address] [place] [address] 7 [place] [address] [email or web address] Insurance Assigned Provider 11/07/2302/06/24 documented as of this encounter Additional Source Comments The information contained in this document represents components of the legal health record. It is not the complete legal health record.[facility]
--- OUTSIDE RECORDS SUMMARY | 2025-03-28 13:50 | XMS_ITS | Encounter Summary ---
Author Organization [facility] Address [address] [address] Phone Care Team Providers Care Civil Structural Designer Name Role Phone Petra Murillo Unavailable Alissa Young ASSISTANT EDITOR Unavailable [phone] Zeina Rueda DO Unavailable Rainer Mendez MD Unavailable Jorge Hale DO Unavailable Daniella VilledaP Unavailable Louis Johnson MD Unavailable [phone] Maya Wilson MD Unavailable Dexter Lamb MD Unavailable Elizabeth Samaniego MD Unavailable Pilo Haro MD Unavailable Elizabeth Samaniego MD Primary Care Provider [phone] Elizabeth Samaniego MD Unavailable Encounter Details Date Type Department Care Team (Late st Contact Info) Description 02/04/2018 Ancillary Orders Virtual Department 30 [place] [address] Juany Mosqueda PA Kidney stone; Urinary frequency Social History Tobacco Use Types Packs/Day Years [...] Visit [facility] 8 [place] [address] Elizabeth Samaniego MD [address] [place] [address] [email or web address] Eloisa Burgos, PT 8 [place] [address] 04/11/2025 1:30 PM EDT Office Visit [facility] 8 [place] [address] Elizabeth Samaniego MD [address] [place] [address] Eolisa Burgos, PT 8 [place] [address] 06/20/2025 12:15 PM EST Evaluation [facility] [place] [address] [address] Heide Fried AuD [address] [place] [address] [email or web address] 06/20/2025 1:00 PM EST Office Visit [facility] [place] [address] [address] Joe Alonzo MD [address] [facility] [place] [address] [email or web address] documented as of this encounter Visit Diagnoses Diagnosis Kidney stone Calculus of kidney Urinary frequency documented in this encounter Additional Health Concerns Infection Onset Date Last Indicated Resolved Time CoV-Risk 08/13/2020 08/13/2020 08/23/2020 1:25 AM EST CoV-Risk Comment:Per Ambulatory Triage Form 03/16/2024 03/16/202403/27 1:22 AM EDT documented as of this encounter Care Teams Civil Structural Designer Relationship Specialty Start Date End Date Elizabeth Samaniego MD 234 [facility] 7 [place] [address] [email or web address] PCP - General 07/02/17 Petra Murillo PA [facility] [place] [address] Historical LMR Provider 05/23/17 2 Alissa Young NP [address] [place] [address] Historical LMR Provider 05/23/17 2 Zeina Rueda DO [address] [place] [address] 7 [place] [address] Historical LMR Provider 05/23/17 Rainer Mendez MD [address] [place] [address] [email or web address] Historical LMR Provider 05/23/17 Jorge Hale DO [address] [place] [address] Orthopedics & Sports Medicine, [facility] [place] [address] Historical LMR Provider 05/23/17 08/10/21 Daniella Villeda FNP [address] [place] [address] 7 [place] [address] [email or web address] Historical LMR Provider 05/23/17 Louis Johnson MD [address] [place] [address], 2nd [place] [address] [email or web address] Historical LMR Provider 05/23/17 08/10/21 Maya Wilson MD [address] [place] [address] 7 [place] [address] [email or web address] Historical LMR Provider 05/23/17 Dexter Lamb MD [address] [place] [address] [place] [address] Historical LMR Provider 05/23/17 2 Elizabeth Samaniego MD [address] [place] [address] 7 [place] [address] [email or web address] Historical LMR Provider 05/23/17 Pilo Haro MD [address] [place], [place] [address] [place] [address] [email or web address] Historical LMR Provider 05/23/17 08/10/21 Elizabeth Samaniego MD [address] [place] [address] [place] [address] [email or web address] Insurance Assigned Provider 11/07/2302/06/24 documented as of this encounter Additional Source Comments The information contained in this document represents components of the legal health record. It is not the complete legal health record.[facility]
--- OUTSIDE RECORDS SUMMARY | 2025-03-28 13:50 | XMS_ITS | Encounter Summary ---
Author Organization [facility] Address [address] [facility] [address] [place] [address] Phone Care Team Providers Care Cloth Laminating Supervisor Name Role Phone Petra Murillo Unavailable [phone] Alissa Young BRUSH HEAD MAKER Unavailable Zeina Rueda DO Unavailable Rainer Mendez MD Unavailable Jorge Hale DO Unavailable Daniella Villeda ELECTRONIC PUBLISHER Unavailable Louis Johnson MD Unavailable [phone] Maya Wilson MD Unavailable [phone] Dexter Lamb MD Unavailable Elizabeth Samaniego MD Unavailable [phone] Pilo Haro MD Unavailable Elizabeth Samaniego MD Primary Care Provider Elizabeth Samaniego MD Unavailable [phone] Encounter Details Date Type Department Care Team (Late st Contact Info) Description 09/22/2017 Procedure Pass [facility], Ct Scan - [address] [address] Social History Tobacco Use Types Packs/Day Years [...] Description 04/04/2025 1:30 PM EDT Office Visit [facility] 8 [place] [address] Elizabeth Samaniego MD [address] [place] [address] [email or web address] Eloisa Burgos, PT 8 [place] [address] 04/11/2025 1:30 PM EDT Office Visit [facility] 8 [place] [address] Elizabeth Samaniego MD [address] [place] [address] Eloisa Burgos, PT 8 [place] [address] 06/20/2025 12:15 PM EST Evaluation [facility] Audiology [address] [address] Heide Fried AuD [address] [place] [address] [email or web address] 06/20/2025 1:00 PM EST Office Visit [facility] Otology [address] [address] Joe Alonzo MD 243 [facility] [place] [address] [email or web address] documented as of this encounter Visit Diagnoses Not on filedocumented in this encounter Additional Health Concerns Infection Onset Date Last Indicated Resolved Time CoV-Risk 08/13/2020 08/13/2020 08/23/2020 1:25 AM EST CoV-Risk Comment:Per Ambulatory Triage Form 03/16/2024 03/16/202403/27 1:22 AM EDT documented as of this encounter Care Teams Cloth Laminating Supervisor Relationship Specialty Start Date End Date Elizabeth Samaniego MD [address] [place] [address] [email or web address] PCP - General 07/02/17 Petra Murillo PA [facility] [address] Historical LMR Provider 05/23/17 2 Alissa Young BRUSH HEAD MAKER [address] [place] [address] Historical LMR Provider 05/23/17 2 Zeina Rueda DO [address] [place] [address] 7 [place] [address] Historical LMR Provider 05/23/17 Rainer Mendez MD [address] [place] [address] [email or web address] Historical LMR Provider 05/23/17 Jorge Hale DO [address] [place] [address] [facility] [place] [address] Historical LMR Provider 05/23/17 08/10/21 Daniella Villeda FNP [address] [place] [address], [address] [place] [address] [email or web address] Historical LMR Provider 05/23/17 Louis Johnson MD [address] [place] [address], 2nd [place] [address] Historical LMR Provider 05/23/17 08/10/21 Maya Wilson MD [address] [place] [address] 7 [place] [address] [email or web address] Historical LMR Provider 05/23/17 Dexter Lamb MD [address] [place] [address] 7 [place] [id number] Historical LMR Provider 05/23/17 2 Elizabeth Samaniego MD [address] [place] [address] 7 [place] [address] [email or web address] Historical LMR Provider 05/23/17 Pilo Haro MD [address] [place], [place] [address] [place] [phone] [email or web address] Historical LMR Provider 05/23/17 08/10/21 Elizabeth Samaniego MD [address] [place] [address] 7 [place] [address] [email or web address] Insurance Assigned Provider 11/07/2302/06/24 documented as of this encounter Additional Source Comments The information contained in this document represents components of the legal health record. It is not the complete legal health record.[facility]
--- OUTSIDE RECORDS SUMMARY | 2025-03-28 13:50 | XMS_ITS | Encounter Summary ---
Author Organization [facility] Address [address] [facility] [address] [place] [address] Phone Care Team Providers Care Territory Manager Name Role Phone Petra Murillo Unavailable [phone] Alissa Young PHARMACEUTICAL SALESPERSON Unavailable Zeina Rueda DO Unavailable Rainer Mendez MD Unavailable Jorge Hale DO Unavailable Daniella Villeda RECREATION MANAGER Unavailable Louis Johnson MD Unavailable Maya Wilson MD Unavailable Dexter Lamb MD Unavailable Elizabeth Samaniego MD Unavailable Pilo Haro MD Unavailable [phone] Elizabeth Samaniego MD Primary Care Provider Elizabeth Samaniego MD Unavailable [phone] Encounter Details Date Type Department Care Team (Late st Contact Info) Description 07/06/2018 Ancillary Orders Virtual Department 30 [place], [place] [phone] Nola Najera PA [address] [phone] [email or web address] Calculus of kidney Social History Tobacco Use Types Packs/Day [...] Description 04/04/2025 1:30 PM EDT Office Visit [facility] 8 [place] [address] Elizabeth Samaniego MD [address] [place] [address] 7 [place] [address] Eloisa Burgos, PT 8 [place] [address] 04/11/2025 1:30 PM EDT Office Visit [facility] 8 [place] [address] Elizabeth Samaniego MD [address] [facility], [address] [place] [address] Eloisa Burgos, PT 8 [place] [address] 06/20/2025 12:15 PM EST Evaluation [facility] [address] [address] Heide Fried, AuD 243 [place] [address] [email or web address] 06/20/2025 1:00 PM EST Office Visit [facility] Otology [place] 243 [facility] 2nd [place] [address] Joe Alonzo MD [address] [place] [address] [place] [address] [email or web address] documented as of this encounter Results * US Kidneys (07/21/2018 8:35 AM EST) Anatomical Region Laterality Modality Abdomen, Kidney Ultrasound 07/21/2018 9:17 AM EST Impressions 07/21/2018 9:41 AM EST Multiple bilateral renal stones without obstruction. POS [id number] Edited by: Vernell Montoya on 07/21/2018 9:20 AM Narrative 07/21/2018 9:41 AM EST COMPARISON: Unenhanced CT September 25. FINDINGS: Kidneys: Right kidney measured 11.6 cm in length and left 11.4 cm. At least five echogenic foci without shadowing correlating to the stones apparent on prior CT are seen in both kidneys. This appears slightly larger on the left measuring 6 to 7 mm. On the right they measure largely on the order of 5 mm. There is no evidence of hydronephrosis. No perinephric fluid collections. No mass is identified. Procedure Note Kaylie Dutton MD - 07/21/2018 COMPARISON: Unenhanced CT September 25. FINDINGS: Kidneys: Right kidney measured 11.6 cm in length and left 11.4 cm. Atleast five echogenic foci without shadowing correlating to the stonesapparent on prior CT are seen in both kidneys. This appears slightlylarger on the left measuring 6 to 7 mm. On the right they measure largelyon the order of 5 mm. There is no evidence of hydronephrosis. Noperinephric fluid collections. No mass is identified. IMPRESSION: Multiple bilateral renal stones without obstruction. POS [id number] Edited by: Vernell Montoya on 07/21/2018 9:20 AM Nola LAST IMG US RENAL Final Resu lt * XR ABDOMEN 1 VIEW (07/21/2018 8:12 AM EST) Anatomical Region Laterality Modality Abdomen Radiographic Jen ging 07/21/2018 9:11 AM EST Impressions 07/21/2018 9:19 AM EST Bilateral renal calculi, at least 3 calculi on the right and 5 calculi on the left. POS - [id number] Narrative 07/21/2018 9:19 AM EST XR ABDOMEN 1 VIEW HISTORY: Calculus of kidney TECHNIQUE: AP views abdomen, 2 images. COMPARISON: 02/08/2018 x-rays. FINDINGS: Air and stool within a nondilated colon. Scattered air within nondilated small bowel. There are 5 calculi overlying the left renal contour in the same location as calculi seen on the prior x-ray ranging in size between 4 mm and 6 mm. The right side of the abdomen is more obscured by bowel containing stool. There are at least 3 calcifications in the right kidney ranging in size between 3 mm and 9 mm. These likely were also present on the prior x-ray. There are 2 stable round vascular calcifications in the pelvis. No visible ureteral calculi. Again seen is left hip replacement hardware. No suspicious bone findings. Advanced right hip degenerative changes again noted. Procedure Note Mallory Gonzalez MD - 07/21/2018 XR ABDOMEN 1 VIEW HISTORY: Calculus of kidney TECHNIQUE: AP views abdomen, 2 images. COMPARISON: 02/08/2018 x-rays. FINDINGS: Air and stool within a nondilated colon. Scattered air within nondilatedsmall bowel. There are 5 calculi overlying the left renal contour in the same locationas calculi seen on the prior x-ray ranging in size between 4 mm and 6mm. The right side of the abdomen is more obscured by bowel containing stool.There are at least 3 calcifications in the right kidney ranging in sizebetween 3 mm and 9 mm. These likely were also present on the priorx-ray. There are 2 stable round vascular calcifications in the pelvis. No visibleureteral calculi. Again seen is left hip replacement hardware. No suspicious bone findings. Advanced right hip degenerative changes againnoted. IMPRESSION: Bilateral renal calculi, at least 3 calculi on the right and 5 calculi onthe left. POS - [id number] Nola LAST IMG XR ABDOMEN Final Resu lt documented in this encounter Visit Diagnoses Diagnosis Calculus of kidney Calculus of kidney Calculus of kidney documented in this encounter Additional Health Concerns Infection Onset Date Last Indicated Resolved Time CoV-Risk 08/13/2020 08/13/2020 08/23/2020 1:25 AM EST CoV-Risk Comment:Per Ambulatory Triage Form 03/16/2024 03/16/202403/27 1:22 AM EDT documented as of this encounter Care Teams Territory Manager Relationship Specialty Start Date End Date Elizabeth Samaniego MD [address] [place] [address] [email or web address] PCP - General 07/02/17 Petra Murillo PA [facility] [place] [address] Historical LMR Provider 05/23/17 2 Alissa Young NP 1 [place] [address] Historical LMR Provider 05/23/17 2 Zeina Rueda DO [address] [place] [address] 7 [place] [address] Historical LMR Provider 05/23/17 Rainer Mendez MD [address] [place] [address] [email or web address] Historical LMR Provider 05/23/17 Jorge Hale DO [address] [place] [address] [facility], [place] [address] Historical LMR Provider 05/23/17 08/10/21 Daniella Villeda FNP [address] [place] [address] 7 [place] [address] Historical LMR Provider 05/23/17 Louis Johnson MD [address] [place] [address], 2nd [place] [address] Historical LMR Provider 05/23/17 08/10/21 Maya Wilson MD [address] [place] [id number] Historical LMR Provider 05/23/17 Dexter Lamb MD [address] [place] [phone] Historical LMR Provider 05/23/17 Elizabeth Estrada MD [address] [place] [id number] Historical LMR Provider 05/23/17 Pilo Haro MD [address] [place], [place] [address] [place] [phone] [email or web address] Historical LMR Provider 05/23/17 08/10/21 Elizabeth Samaniego MD [address] [place] [address] 7 [place] [address] [email or web address] Insurance Assigned Provider 11/07/2302/06/24 documented as of this encounter Additional Source Comments The information contained in this document represents components of the legal health record. It is not the complete legal health record.[facility]
== END 2025-03-28 13:58 | disposition home or self-care (01) ==
LOC: HO.HNS 13:05
PROVIDERS: PCP Family Medicine; Referring Provider Nurse Practitioner Family; Visit Provider Physician Assistant
DX: M43.17 Spondylolisthesis, lumbosacral region (principal)
CPT/HCPCS: 99204

== ENCOUNTER 2025-04-11 13:04 | Outpatient (AMB) | payer OTHER, SELFPAY ==
--- NOTE | 2025-04-11 13:15 | HO.SPINEOV ---
Intake Visit Reasons: evaluation for neck pain Intake Note: Mr. Ladd is here today for an Evaluation of the neck. Magnetic Tester Required: No Allergies No Known Allergies Allergy (Verified 04/11/25 13:17) Assessment & Plan Assessment & Plan (1) Cervical radiculopathy: Code(s): M54.12 - Radiculopathy, cervical region Category: Medical Plan HPI: Christofer is a pleasant 64 year old male previously evaluated in clinic a couple of weeks ago for his lumbar spine concerns. He comes in today to discuss his cervical spine issues. To recap he does have a fairly significant spondylolithesis at L5-S1, which he seems to have been managing conservatively fairly well. He has a previous cervical spine MRI completed at [facility], however it is from September of 2023. Today, he reports that his posterior neck pain has been ongoing for many years. More recently in the last 1-2 years it sounds like he began developing a shooting / burning pain into his bilateral upper extremities terminating near the thumb. He states that his left sided pain is much worse than his right. He does report that he has some issues with dropping things, and finds himself dropping objects throughout the day. He denies any issues with dexterity / handgrip. He denies any numbness accompanying his pain. No bowel/bladder issues reported. No balance issues/falls reported. 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 There is notable straightening of the normal cervical lordosis. Exam: Bilateral hand machine guide base winder strength is 5/5. Bilateral interossei strength is 5/5 bilateral wrist extension/flexion is 5/5. Left-sided biceps testing is notably weak rated at 4/5. Right sided biceps and bilateral triceps testing is 5/5. (-) Holley's, (-) Clonus, (-) Tinel's at wrist, (-) Phalen's. Plan: Given that the patient has severe spinal cord compression noted on MRI imaging completed about 1.5 years ago, I believe repeat imaging is necessary to evaluate for worsening compression and myelomalacia. Either way, I believe given that the patients symptoms match the dermatomal distribution of the compressed nerves, he will need to undergo C4-5 ACDF. I will review his repeat MRI with Dr. Elliott and call the patient thereafter to update him. We did extensively review the ACDF procedure in office today. Jose Ramon Elliott MD,PhD [facility] Orders: Orders MR cervical spine wo con Today M54.12 - Radiculopathy, cervical region Coding Level of Care Code Est Pt Level 3 (09518) Diagnoses Cervical radiculopathy M54.12
--- OUTSIDE RECORDS SUMMARY | 2025-04-11 15:22 | XMS_ITS | Encounter Summary ---
Author Organization [facility] Address [address] [address] Phone Care Team Providers Care Home Health Care Worker Name Role Phone BandarChandu mercedesZeinasharyn Gonzalez DO Unavailable Rainer Mendez MD Unavailable [phone] Daniella VilledaP Unavailable Maya Wilson MD Unavailable [phone] Elizabeth Samaniego MD Unavailable Elizabeth Samaniego MD Primary Care Provider Elizabeth Samaniego MD Unavailable [phone] Reason for Referral * MRI/CAT Scan - Closed Specialty Diagnoses / Procedures Referred By Amilcar rascon Referred To Contact Radiology Diagnoses Calculus of kidney Procedures CT Abdomen/Pelvis Alida Gutierrez PA Phone: tel: fax: [email or web address] Referral ID Status Reason Start Date Expiration Date Visits Re quested Visits Authorized [id number] Closed 04/18/2022 05/18/2022 1 1 Encounter Details Date Type Department Care Team (Latest Contact Info) Description 03/14/2022 Transcribe Orders Virtual Department 30 [place] [address] Alida Gutierrez PA 3400 [facility] 103 [place] [address] [email or web address] Calculus of kidney (Primary Dx) Social History [...] high school, GED, job training, learning the Burmese language, technical skills, or developing parenting skills)? [...] Upcoming Encounters Date Type Department Care Team ([facility] st Contact Info) Description 06/20/2025 12:15 PM EST Evaluation [facility] [address] [address] Heide Fried AuD 243 [place] [address] [email or web address] 06/20/2025 1:00 PM EST Office [place] [facility] [place] 243 [facility] 2nd [place] [address] Joe Alonzo MD 243 [facility] [place] [address] [email or web address] documented as of this encounter Results [...] renal calculi,overall stable from 12/09/2020. 2.Constipation: Alida DOUGHERTY CT ABD/PELVIS Final Result documented in this encounter Visit Diagnoses Diagnosis Calculus of kidney- Primary Calculus of kidney documented in this encounter Additional Health Concerns Infection Onset Date Last Indicated Resolved Time CoV-Risk Comment:Per Ambulatory Triage Form 03/16/2024 03/16/202403/27 1:22 AM EDT Assessment Noted Time PHQ-2 Depression Total Score: 1 12/07/19 9:15 AM EDT documented as of this encounter Care Teams Home Health Care Worker Relationship Specialty Start Date End Date Elizabeth Samaniego MD [address] [place] [address] [email or web address] PCP - General 07/02/17 Zeina Rueda DO [address] [place] [address] [email or web address] Historical LMR Provider 05/23/17 Rainer Mendez MD [address] [place] [address] [email or web address] Historical LMR Provider 05/23/17 Daniella Villeda FNP [address] [place] [address] [email or web address] Historical LMR Provider 05/23/17 Maya Wilson MD [address] [place] [address] [email or web address] Historical LMR Provider 05/23/17 Elizabeth Samaniego MD [address] [place] [address] [email or web address] Historical LMR Provider 05/23/17 Elizabeth Samaniego MD [address] [place] [address], [address] [place] [address] [email or web address] Insurance Assigned Provider 11/07/2302/06/24 documented as of this encounter Additional Source Comments The information contained in this document represents components of the legal health record. It is not the complete legal health record.[facility]
--- OUTSIDE RECORDS SUMMARY | 2025-04-11 15:22 | XMS_ITS | Encounter Summary ---
Author Organization [facility] Address [address] [facility] [address] [place] [address] Phone Care Team Providers Care Therapeutic Support Staff Name Role Phone Zeina Rueda Carlos NGUYEN Unavailable Rainer Mendez MD Unavailable Daniella VilledaP Unavailable Maya Wilson MD Unavailable Elizabeth Samaniego MD Unavailable Elizabeth Samaniego MD Primary Care Provider Elizabeth Samaniego MD Unavailable [phone] Encounter Details Date Type Department Care Team (Late st Contact Info) Description 03/14/2022 Procedure Pass [facility], Ct Scan - [address] [address] Social History Tobacco Use Types Packs/Day Years [...] high school, GED, job training, learning the Senegalese language, technical skills, or developing parenting skills)? [...] Care Team (Late st Contact Info) Description 06/20/2025 12:15 PM EST Evaluation [facility] [place] [address] [address] Heide Fried AuD [address] [place] [address] [email or web address] 06/20/2025 1:00 PM EST Office Visit [facility] [place] [address] [address] Joe Alonzo MD [address] [place] [address] [place] [address] [email or web address] documented as of this encounter Visit Diagnoses Not on filedocumented in this encounter Additional Health Concerns Infection Onset Date Last Indicated Resolved Time CoV-Risk Comment:Per Ambulatory Triage Form 03/16/2024 03/16/202403/27 1:22 AM EDT Assessment Noted Time PHQ-2 Depression Total Score: 1 12/07/19 22 9:15 AM EDT documented as of this encounter Care Teams Therapeutic Support Staff Relationship Specialty Start Date End Date Elizabeth Samaniego MD [address] [place] [address] 7 [place] [address] [email or web address] PCP - General 07/02/17 Zeina Rueda DO [address] [place] [address] 7 [place] [address] [email or web address] Historical LMR Provider 05/23/17 Rainer Mendez MD [address] [place] [address] [email or web address] Historical LMR Provider 05/23/17 Daniella Villeda FNP [address] [place] [address] [place] [address] [email or web address] Historical LMR Provider 05/23/17 Maya Wilson MD [address] [place] [address] [place] [address] [email or web address] Historical LMR Provider 05/23/17 Elizabeth Samaniego MD [address] [place], [place] [address] [place] [address] [email or web address] Historical LMR Provider 05/23/17 Elizabeth Samaniego MD [address] [place] [address] 7 [place] [address] [email or web address] Insurance Assigned Provider 11/07/2302/06/24 documented as of this encounter Additional Source Comments The information contained in this document represents components of the legal health record. It is not the complete legal health record.[facility]
--- OUTSIDE RECORDS SUMMARY | 2025-04-11 15:22 | XMS_ITS | Encounter Summary ---
Author Organization [facility] Address 399 [facility] [address] [place] [address] Phone Care Team Providers Care Elevating Grader Operator Name Role Phone Zeina Rueda Carlos NGUEYN Unavailable [phone] Rainer Mendez MD Unavailable Daniella VilledaP Unavailable Maya Wilson MD Unavailable Elizabeth Samaniego MD Unavailable Elizabeth Samaniego MD Primary Care Provider Elizabeth Samaniego MD Unavailable Encounter Details Date Type Department Care Team (Late st Contact Info) Description 06/11/2022 Procedure Pass [facility], Ct Scan - [address] [address] Social History Tobacco Use Types Packs/Day Years [...] high school, GED, job training, learning the Andorran language, technical skills, or developing parenting skills)? [...] Author No Risk Indicated 06/11/2022 10:25 PM EST Cate Powell RN * [place] Suicide Severity Rating Scale (Screener/Recent Self-Report) Question [...] 06/20/2025 12:15 PM EST Evaluation [facility] [address] 2nd [place] [address] Heide Fried, Sebastian [address] [place] [address] [email or web address] 06/20/2025 1:00 PM EST Office Visit [facility] [address] [facility] 2nd [place] [address] Joe Alonzo MD 243 [facility] [place] [address] [email or web address] documented as of this encounter Visit Diagnoses Not on filedocumented in this encounter Additional Health Concerns Infection Onset Date Last Indicated Resolved Time CoV-Risk Comment:Per Ambulatory Triage Form 03/16/2024 03/16/202403/27 1:22 AM EDT Assessment Noted Time PHQ-2 Depression Total Score: 1 12/07/19 9:15 AM EDT documented as of this encounter Care Teams Elevating Grader Operator Relationship Specialty Start Date End Date Elizabeth Samaniego MD [address] [place] [address] PCP - General 07/02/17 Zeina Rueda DO [address] [place] [address] Historical LMR Provider 05/23/17 Rainer Mendez MD [address] [place] [address] [email or web address] Historical LMR Provider 05/23/17 Daniella Villeda FNP [address] [place] [address] Historical LMR Provider 05/23/17 Maya Wilson MD [address] [place] [address] 7 [place] [address] [email or web address] Historical LMR Provider 05/23/17 Elizabeth Samaniego MD [address] [place] [address] [email or web address] Historical LMR Provider 05/23/17 Elizabeth Samaniego MD [address] [place] [address] 7 [place] [address] Insurance Assigned Provider 11/07/2302/06/24 documented as of this encounter Additional Source Comments The information contained in this document represents components of the legal health record. It is not the complete legal health record.[facility]
--- OUTSIDE RECORDS SUMMARY | 2025-04-11 15:22 | XMS_ITS | Encounter Summary ---
Author Organization [facility] Address [address] [address] Phone Care Team Providers Care Real Estate Professional Name Role Phone Petra Murillo Unavailable [phone] Alissa Young SENIOR PROFESSIONAL SERVICES CONSULTANT Unavailable [phone] Zeina Rueda DO Unavailable Rainer Mendez MD Unavailable Jorge Hale DO Unavailable Daniella Villeda [employer] Unavailable Louis Johnson MD Unavailable Maya Wilson MD Unavailable Dexter Lamb MD Unavailable Elizabeth Samaniego MD Unavailable Pilo Haro MD Unavailable [phone] Elizabeth Samaniego MD Primary Care Provider Elizabeth Samaniego MD Unavailable [phone] Encounter Details Date Type Department Care Team (Late st Contact Info) Description 10/05/2019 Transcribe Orders [facility] Department 30 [place] [address] Brothers, Jaison Uribe MD [address] [place] [address] Social History Tobacco Use Types Packs/Day Years [...] Info) Description 06/20/2025 12:15 PM EST Evaluation [facility] [address] [address] Heide Fried AuD [address] [place] [address] [email or web address] 06/20/2025 1:00 PM EST Office Visit [facility] [address] [address] Joe Alonzo MD [address] [place] [address] [place] [address] [email or web address] documented as of this encounter Visit Diagnoses Not on filedocumented in this encounter Additional Health Concerns Infection Onset Date Last Indicated Resolved Time CoV-Risk 08/13/2020 08/13/2020 08/23/2020 1:25 AM EST CoV-Risk Comment:Per Ambulatory Triage Form 03/16/2024 03/16/202403/27 1:22 AM EDT documented as of this encounter Care Teams Real Estate Professional Relationship Specialty Start Date End Date Elizabeth Samaniego MD [address] [place] [address], [address] [place] [address] PCP - General 07/02/17 Petra Murillo PA [facility] [address] Historical LMR Provider 05/23/17 2 Alissa Young NP 1 [place] [address] Historical LMR Provider 05/23/17 2 Zeina Rueda DO [address] [place] [address] 7 [place] [address] [email or web address] Historical LMR Provider 05/23/17 Rainer Mendez MD [address] [place] [address] [email or web address] Historical LMR Provider 05/23/17 Jorge Hale DO [address] [place] [address] [facility], [place] [address] [email or web address] Historical LMR Provider 05/23/17 08/10/21 Daniella Villeda FNP [address] [place] [address] 7 [place] [address] [email or web address] Historical LMR Provider 05/23/17 Louis Johnson MD [address] [place] [address] Historical LMR Provider 05/23/17 08/10/21 Maya Wilson MD [address] [place] [address] 7 [place] [address] [email or web address] Historical LMR Provider 05/23/17 Dexter Lamb MD [address] [place] [address] 7 [place] [address] Historical LMR Provider 05/23/17 2 Elizabeth Samaniego MD [address] [place] [address] 7 [place] [address] [email or web address] Historical LMR Provider 05/23/17 Pilo Haro MD [address] [place], [place] [address] [place] [address] [email or web address] Historical LMR Provider 05/23/17 08/10/21 Elizabeth Samaniego MD [address] [place] [address] 7 [place] [address] [email or web address] Insurance Assigned Provider 11/07/2302/06/24 documented as of this encounter Additional Source Comments The information contained in this document represents components of the legal health record. It is not the complete legal health record.[facility]
--- OUTSIDE RECORDS SUMMARY | 2025-04-11 15:23 | XMS_ITS | Encounter Summary ---
Author Organization [facility] Address [address] [address] Phone Care Team Providers Care Dock Supervisor Name Role Phone Petra Murillo Unavailable [phone] Alissa Young NP Unavailable Zeina Rueda DO Unavailable Rainer Mendez MD Unavailable Jorge Hale DO Unavailable Daniella VilledaP Unavailable Louis Johnson MD Unavailable Maya Wilson MD Unavailable Dexter Lamb MD Unavailable Elizabeth Samaniego MD Unavailable Pilo Haro MD Unavailable [phone] Elizabeth Samaniego MD Primary Care Provider Elizabeth Samaniego MD Unavailable [phone] Reason for Referral * MRI/CAT Scan - Closed Specialty Diagnoses / Procedures Referred By Contjose m t Referred To Contact Radiology Diagnoses Acute lower GI hemorrhage Procedures CT Abdomen/Pelvis Doris Sanchez PA Phone: tel: fax: Referral ID Status Reason Start Date Expiration Date Visits Re quested Visits Authorized [id number] Closed 09/22/2017 11/21/2017 1 1 Encounter Details Date Type Department Care Team (Late st Contact Info) Description 09/22/2017 Ancillary Orders Virtual Department 30 [place] [address] Doris Sanchez PA 10 [place] [address] Acute lower GI hemorrhage Social History Tobacco [...] Info) Description 06/20/2025 12:[address] [facility] [address] [address] Heide Fried AuD [address] [place] [address] [email or web address] 06/20/2025 1:00 PM EST Office [facility] [address] [address] Joe Alonzo MD [address] [place] [address] - [place] [address] [email or web address] documented as of this encounter Results * [...] TOTAL CTDIvol: 16.4 mGy POS - [id number] Doris LAST IMG CT ABD/PELVIS Final Res ult [...] documented as of this encounter Care Teams Dock Supervisor Relationship Specialty Start Date End Date Elizabeth Samaniego MD 234 [facility] 7 [place] [address] [email or web address] PCP - General 07/02/17 Petra Murillo PA On license of [facility] [place] [address] Historical LMR Provider 05/23/17 2 Alissa Young NP [address] [place] [address] Historical LMR Provider 05/23/17 2 Zeina Rueda DO [address] [place] [address] 7 [place] [address] [email or web address] Historical LMR Provider 05/23/17 Rainer Mendez MD [address] [place] [address] [email or web address] Historical LMR Provider 05/23/17 Jorge Hale DO [address] [place] [address] Orthopedics & Sports Medicine, [facility] [place] [address] Historical LMR Provider 05/23/17 08/10/21 Daniella Villeda FNP [address] [facility], [facility] 7 [place] [address] [email or web address] Historical LMR Provider 05/23/17 Louis Johnson MD [address] [facility], 2nd [place] [address] Historical LMR Provider 05/23/17 08/10/21 Maya Wilson MD [address] [place] [address] 7 [place] [address] [email or web address] Historical LMR Provider 05/23/17 Dexter Lamb MD [address] [place] [address] 7 [place] [address] Historical LMR Provider 05/23/17 2 Elizabeth Samaniego MD [address] [place] [address] 7 [place] [address] [email or web address] Historical LMR Provider 05/23/17 Pilo Haro MD [address] [place], [place] [address] [place] [address] [email or web address] Historical LMR Provider 05/23/17 08/10/21 Elizabeth Samaniego MD [address] [place] [address] 7 [place] [address] [email or web address] Insurance Assigned Provider 11/07/2302/06/24 documented as of this encounter Additional Source Comments The information contained in this document represents components of the legal health record. It is not the complete legal health record.[facility]
--- OUTSIDE RECORDS SUMMARY | 2025-04-11 15:23 | XMS_ITS | Encounter Summary ---
Author Organization [facility] Address [address] [address] Phone Care Team Providers Care Fiberglasser Name Role Phone Petra Murillo Unavailable [phone] Alissa Young DIVISION LEADER Unavailable Zeina Rueda DO Unavailable Rainer Mendez MD Unavailable Jorge Hale DO Unavailable Daniella Villeda VP CLIENT SERVICES Unavailable Louis Johnson MD Unavailable [phone] Maya Wilson MD Unavailable [phone] Dexter Lamb MD Unavailable Elizabeth Samaniego MD Unavailable Pilo Haro MD Unavailable Elizabeth Samaniego MD Primary Care Provider Elizabeth Samaniego MD Unavailable Encounter Details Date Type Department Care Team (Late st Contact Info) Description 02/05/2018 Ancillary Orders Virtual Department 30 [place], [place] [phone] Alex Romano MD [address] [facility], [address] [place] [address] [email or web address] Calculus, kidney Social History Tobacco Use Types [...] Info) Description 06/20/2025 12:15 PM EST Evaluation [facility] [address] [address] Heide Fried AuD [address] [place] [address] [email or web address] 06/20/2025 1:00 PM EST Office Visit [facility] Otology [address] [address] Joe Alonzo MD [address] [place] [address] [place] [address] [email or web address] documented as of this encounter Results * US Kidneys and Bladder (02/08/2018 5:39 PM EDT) Anatomical Region Laterality Modality Abdomen, Kidney Ultrasound 02/08/2018 6:01 PM EDT Impressions 02/08/2018 6:06 PM EDT Persistent numerous non-obstructing intrarenal stones bilaterally. Similar overall burden to the CT in September allowing for difference in modality. No sign of obstruction, infection or tumor today. POS [id number] Narrative 02/08/2018 6:06 PM EDT Compare to [...] of obstruction, infection or tumor today. POS [id number] us Alex Romano MD [facility] Final Result documented in this encounter Visit Diagnoses Diagnosis Calculus, kidney Calculus of kidney Calculus, kidney Calculus of kidney documented in this encounter Additional Health Concerns Infection Onset Date Last Indicated Resolved Time CoV-Risk 08/13/2020 08/13/2020 08/23/2020 1:25 AM EST CoV-Risk Comment:Per Ambulatory Triage Form 03/16/2024 03/16/202403/27 1:22 AM EDT documented as of this encounter Care Teams Fiberglasser Relationship Specialty Start Date End Date Elizabeth Samaniego MD [address] [place] [address] [email or web address] PCP - General 07/02/17 Petra Murillo PA [facility] [place] [address] Historical LMR Provider 05/23/17 2 Alissa Young NP 1 [place] [address] Historical LMR Provider 05/23/17 2 Zeina Rueda DO [address] [place] [address] [email or web address] Historical LMR Provider 05/23/17 Rainer Mendez MD [address] [place] [address] [email or web address] Historical LMR Provider 05/23/17 Jorge Hale DO [address] [place] [address] Orthopedics & Sports Medicine, [facility] [place] [address] Historical LMR Provider 05/23/17 08/10/21 Daniella Villeda FNP [address] [place] [address] [email or web address] Historical LMR Provider 05/23/17 Louis Johnson MD 22 [facility], 2nd [place] [address] [email or web address] Historical LMR Provider 05/23/17 08/10/21 Maya Wilson MD 234 [facility], [address] [place] [address] [email or web address] Historical LMR Provider 05/23/17 Dexter Lamb MD [address] [place] [address] [address] [place] [address] Historical LMR Provider 05/23/17 2 Elizabeth Samaniego MD [address] [place] [address] 7 [place] [address] [email or web address] Historical LMR Provider 05/23/17 Pilo Haro MD [address] [place], [place] [address] [place] [address] [email or web address] Historical LMR Provider 05/23/17 08/10/21 Elizabeth Samaniego MD [address] [place] [address] 7 [place] [address] [email or web address] Insurance Assigned Provider 11/07/2302/06/24 documented as of this encounter Additional Source Comments The information contained in this document represents components of the legal health record. It is not the complete legal health record.[facility]
--- OUTSIDE RECORDS SUMMARY | 2025-04-11 15:23 | XMS_ITS | Encounter Summary ---
Author Organization [facility] Address 399 [facility] [address] [place] [address] Phone Care Team Providers Care Cobbler Mckay Name Role Phone Petra Murillo Unavailable Alissa Young NP Unavailable Zeina Rueda DO [...] (Latest Contact Info) Description 09/25/2017 Transcribe Orders [facility] Laboratory 30 [place], [place] [phone] Doris Sanchez PA 10 [place] [address] Routine general medical examination at a health [...] Info) Description 06/20/2025 12:15 PM EST Evaluation [facility] [place] [place] Audiology [address] [address] Heide Fried AuD 243 [place] [address] [email or web address] 06/20/2025 1:00 PM EST Office Visit [facility] [place] [place] Otology [address] [address] Joe Alonzo MD 243 [facility] [place] [address] [email or web address] documented as of this encounter Results * PT-INR (09/25/2017 12:55 PM EST) PT 11.5 10.2 - 12.9 sec [facility] INR 1.0 0.9 - 1.1 [facility] Comment:Therapeutic range fo r oral Vitamin K antagonists: 2.0-3.5 Blood 09/25/2017 12:5 5 PM EST 09/25/2017 12:58 PM EST us Doris LAST LAB BLOOD ORDERABLES Final Result [address] [address] * Ferritin (09/25/2017 12:55 PM EST) Pathologist [facility] FERRITIN 67 30 - 400 ug/L [facility] Blood 09/25/2017 12:5 5 PM EST 09/25/2017 12:58 PM EST us Doris LAST LAB BLOOD ORDERABLES Final Result Performing Organization Address [place]/[facility]/ZIP Co de Phone Number [address] [address] * C-Reactive Protein (09/25/2017 12:55 PM EST) [facility] C REACTIVE PROTEIN 0.1 0 - 0.5 mg/L [facility] Blood 09/25/2017 12:5 5 PM EST 09/25/2017 12:58 PM EST us Doris LAST LAB BLOOD ORDERABLES Final Result Performing Organization Address [place] Co de Phone Number [address] [address] * (ABNORMAL) CBC and differential (09/25/2017 12:55 PM EST) [facility] WBC 4.74 3.40 - 11.20 K/uL [facility] RBC 4.74 4.50 - 5.50 M/uL [facility] HGB 13.7 13.0 - 17.0 g/dL [facility] HCT 40.9 40.0 - 51.0 % [facility] PLT 235 130 - 400 K/uL [facility] MCV 86.3 79.0 - 98.0 fL [facility] MCH 28.9 27.0 - 34.8 pg [facility] MCHC 33.5 31.5 - 36.0 g/dL [facility] RDW 12.6 10.8 - 14.6 % [facility] MPV 9.5 9.4 - 12.4 fl [facility] NRBC 0.00 /100 WBCs [facility] ABSOLUTE NRBC 0.00 K/uL [facility] DIFF METHOD Auto [facility] NEUTS 45.2(L) 45.30 - 77.70 % [facility] LYMPHS 37.8 12.30 - 39.70 % [facility] MONOS 12.2 4.10 - 12.80 % [facility] EOS 4.0 0 - 7.2 % [facility] BASOS 0.6 0 - 2.80 % [facility] Granulocytes, immature (%) 0.2 0.0 - 0.9 % [facility] ABSOLUTE NEUTS 2.14 1.40 - 7.70 K/uL [facility] ABSOLUTE LYMPHS 1.79 0.60 - 3.20 K/uL [facility] ABSOLUTE MONOS 0.58 0.11 - 0.59 K/uL [facility] ABSOLUTE EOS 0.19 0.01 - 0.50 K/uL [facility] ABSOLUTE BASOS 0.03 0.00 - 0.08 K/uL [facility] Granulocytes, immature 0.01 0.00 - 0.05 K/uL [facility] Blood 09/25/2017 12:5 5 PM EST 09/25/2017 12:58 PM EST us Doris LAST LAB BLOOD ORDERABLES Final Result Performing Organization Address City/State/[facility] Co de Phone Number [facility] 30 [place] [address] documented in this encounter Visit Diagnoses Diagnosis Routine general medical examination at a health care facility- Primary documented in this encounter Additional Health Concerns Infection Onset Date Last Indicated Resolved Time CoV-Risk 08/13/2020 08/13/2020 08/23/2020 1:25 AM EST CoV-Risk Comment:Per Ambulatory Triage Form 03/16/2024 03/16/202403/27 1:22 AM EDT documented as of this encounter Care Teams Cobbler Mckay Relationship Specialty Start Date End Date Elizabeth Samaniego MD [address] [place] [address], [address] [place] [address] PCP - General 07/02/17 Petra Murillo PA [facility] [place] [address] Historical LMR Provider 05/23/17 2 Alissa Young NP 1 [place] [address] Historical LMR Provider 05/23/17 2 Zeina Rueda DO [address] [place] [address] [email or web address] Historical LMR Provider 05/23/17 Rainer Mendze MD [address] [place] [address] [email or web address] Historical LMR Provider 05/23/17 Jorge Hale DO [address] [place] [address] Orth[facility]ics [facility] Sports Medicine, [place] [address] [email or web address] Historical LMR Provider 05/23/17 08/10/21 Daniella Villeda FNP [address] [place] [address] [email or web address] Historical LMR Provider 05/23/17 Louis Johnson MD [address] [place] [address], [address] [place] [address] Historical LMR Provider 05/23/17 08/10/21 Maya Wilson MD 234 [facility] 7 [place] [address] [email or web address] Historical LMR Provider 05/23/17 Dexter Lamb MD 236 [facility] 7 [place] [address] Historical LMR Provider 05/23/17 2 Elizabeth Samaniego MD [address] [place] [address] 7 [place] [address] [email or web address] Historical LMR Provider 05/23/17 Pilo Haro MD [address] [place], [place] [address] [place] [phone] [email or web address] Historical LMR Provider 05/23/17 08/10/21 Elizabeth Samaniego MD [address] [place] [address] 7 [place] [address] [email or web address] Insurance Assigned Provider 11/07/2302/06/24 documented as of this encounter Additional Source Comments The information contained in this document represents components of the legal health record. It is not the complete legal health record.[facility]
--- OUTSIDE RECORDS SUMMARY | 2025-04-11 15:23 | XMS_ITS | Encounter Summary ---
Author Organization [facility] Address 399 [facility] [address] [place] [address] Phone Care Team Providers Care Inspector And Unloader Name Role Phone Petra Murillo Unavailable [phone] Alissa Young LINUX SUPPORT ENGINEER Unavailable Zeina Rueda DO Unavailable Rainer Mendez MD Unavailable Jorge Hale DO Unavailable Daniella Villeda PASSENGER REPRESENTATIVE Unavailable Louis Johnson MD Unavailable Maya Wilson MD Unavailable [phone] Dexter Lamb MD Unavailable Elizabeth Samaniego MD Unavailable Pilo Haro MD Unavailable [phone] Elizabeth Samaniego MD Primary Care Provider Elizabeth Samaniego MD Unavailable Encounter Details Date Type Department Care Team (Late st Contact Info) Description 07/06/2018 Ancillary Orders Virtual Department 30 [place], [place] [phone] Nola Najera PA [address] [address] [email or web address] Calculus of kidney Social History Tobacco [...] Info) Description 06/20/2025 12:15 PM EST Evaluation [facility] Audiology [address] [address] Heide Fried AuD [address] [place] [address] [email or web address] 06/20/2025 1:00 PM EST Office Visit [facility] Otology [address] [address] Joe Alonzo MD [address] [place] [address] [place] [address] [email or web address] documented as of this encounter Results * US Kidneys (07/21/2018 8:35 AM EST) Anatomical Region Laterality Modality Abdomen, Kidney Ultrasound 07/21/2018 9:17 AM EST Impressions 07/21/2018 9:41 AM EST Multiple bilateral renal stones without obstruction. POS [id number] Edited by: Vernell Montoya on 07/21/2018 9:20 [...] Multiple bilateral renal stones without obstruction. POS [id number] Edited by: Vernell Montoya on 07/21/2018 9:20 AM us Nola LAST IMG US RENAL Final Resu [...] documented as of this encounter Care Teams Inspector And Unloader Relationship Specialty Start Date End Date Elizabeth Samaniego MD [address] [place] [address] 7 [place] [address] [email or web address] PCP - General 07/02/17 Petra Murillo PA [facility], [facility]–[address] [place] [address] Historical LMR Provider 05/23/17 2 Alissa Young NP [address] [place] [address] Historical LMR Provider 05/23/17 2 Zeina Rueda DO [address] [place] [address] 7 [place] [address] Historical LMR Provider 05/23/17 Rainer Mendez MD [address] [place] [address] [email or web address] Historical LMR Provider 05/23/17 Jorge Hale DO [address] [place] [address] [facility], [place] [address] Historical LMR Provider 05/23/17 08/10/21 Daniella Villeda FNP [address] [place] [address] 7 [place] [address] Historical LMR Provider 05/23/17 Louis Johnson MD [address] [place] [address], 2nd [place] [address] Historical LMR Provider 05/23/17 08/10/21 Maya Wilson MD [address] [place] [address] 7 [place] [address] [email or web address] Historical LMR Provider 05/23/17 Dexter Lamb MD [address] [place] [address] 7 [place] [address] Historical LMR Provider 05/23/17 2 Elizabeth Samaniego MD [address] [place] [address] 7 [place] [address] [email or web address] Historical LMR Provider 05/23/17 Pilo Haro MD [address] [place], [place] [address] [place] [address] [email or web address] Historical LMR Provider 05/23/17 08/10/21 Elizabeth Samaniego MD [address] [place] [address] 7 [place] [address] [email or web address] Insurance Assigned Provider 11/07/2302/06/24 documented as of this encounter Additional Source Comments The information contained in this document represents components of the legal health record. It is not the complete legal health record.[facility]
--- OUTSIDE RECORDS SUMMARY | 2025-04-11 15:23 | XMS_ITS | Encounter Summary ---
Author Organization [facility] Address 399 [facility] [address] [place] [address] Phone Care Team Providers Care Molded Candles Wicker Name Role Phone Zeina Rueda Carlos NGUYEN Unavailable [phone] Rainer Mendez MD Unavailable [phone] Daniella VilledaP Unavailable Maya Wilson MD Unavailable Elizabeth Samaniego MD Unavailable [phone] Elizabeth Samaniego MD Primary Care Provider [phone] Elizabeth Samaniego MD Unavailable Encounter Details Date Type Department Care Team (Late st Contact Info) Description 09/03/2023 Procedure Pass [address] [place] [address] Social History Tobacco Use Types Packs/Day Years [...] high school, GED, job training, learning the Singaporean language, technical skills, or developing parenting skills)? [...] Description 06/20/2025 12:[address] [facility] Audiology [facility] [address] [place] [address] Heide Fried AuD 243 [place] [address] [email or web address] 06/20/2025 1:00 PM EST Office Visit [facility] Otology [place] 243 [facility] 2nd [place] [address] Joe Alonzo MD [address] [place] [address] [place] [address] [email or web address] documented as of this encounter Visit Diagnoses Not on filedocumented in this encounter Additional Health Concerns Infection Onset Date Last Indicated Resolved Time CoV-Risk Comment:Per Ambulatory Triage Form 03/16/2024 03/16/202403/27 1:22 AM EDT Assessment Noted Time PHQ-2 Depression Total Score: 2 09/05/19 3:42 PM EST documented as of this encounter Care Teams Molded Candles Wicker Relationship Specialty Start Date End Date Elizabeth Samaniego MD [address] [place] [address] 7 [place] [address] [email or web address] PCP - General 07/02/17 Zeina Rueda DO [address] [place] [address] 7 [place] [address] [email or web address] Historical LMR Provider 05/23/17 Rainer Mendez MD [address] [place] [address] [email or web address] Historical LMR Provider 05/23/17 Daniella Villeda FNP [address] [place] [address] 7 [place] [address] [email or web address] Historical LMR Provider 05/23/17 Maya Wilson MD [address] [place] [address] 7 [place] [address] [email or web address] Historical LMR Provider 05/23/17 Elizabeth Samaniego MD [address] [place] [address] 7 [place] [address] [email or web address] Historical LMR Provider 05/23/17 Elizabeth Samaniego MD [address] [place] [address] 7 [place] [address] [email or web address] Insurance Assigned Provider 11/07/2302/06/24 documented as of this encounter Additional Source Comments The information contained in this document represents components of the legal health record. It is not the complete legal health record.[facility]
--- OUTSIDE RECORDS SUMMARY | 2025-04-11 15:23 | XMS_ITS | Encounter Summary ---
Author Organization [facility] Address [address] [address] Phone Care Team Providers Care Precision Assembler Bench Name Role Phone Petra Murillo Unavailable [phone] Alissa Young MACHINE CARTON MARKER Unavailable Zeina Rueda DO Unavailable [phone] Rainer Mendez MD Unavailable Jorge Hale DO Unavailable Daniella Villeda FLOATLIGHT POWDER MIXER Unavailable Louis Johnson MD Unavailable [phone] Maya Wilson MD Unavailable Dexter Lamb MD Unavailable Elizabeth Samaniego MD Unavailable [phone] Pilo Haro MD Unavailable Elizabeth Samaniego MD Primary Care Provider Elizabeth Samaniego MD Unavailable Encounter Details Date Type Department Care Team (Late st Contact Info) Description 02/05/2018 Ancillary Orders Virtual Department 30 [place], [place] [id number] Alex Romano MD [address] [facility], [address] [place] [address] [email or web address] Calculus of kidney; Benign prostatic hyperplasia with [...] Info) Description 06/20/2025 12:15 PM EST Evaluation [facility] [place] [address] [address] Heide Fried AuD [address] [place] [address] [email or web address] 06/20/2025 1:00 PM EST Office Visit [facility] [place]ology [address] [address] Joe Alonzo MD [address] [place] [address] [place] [address] [email or web address] documented as of this encounter Results * XR ABDOMEN 1 VIEW (02/08/2018 5:38 PM EDT) Anatomical Region Laterality Modality Abdomen Radiographic Jen ging 02/08/2018 7:04 PM EDT Impressions 02/08/2018 7:07 PM EDT Numerous bilateral intrarenal stones POS [id number] Narrative 02/08/2018 7:07 PM EDT AP abdomen [...] unremarkable IMPRESSION: Numerous bilateral intrarenal stones POS [id number] Alex Romano MD IMG XR ABDOMEN Final [...] documented as of this encounter Care Teams Precision Assembler Bench Relationship Specialty Start Date End Date Elizabeth Samaniego MD [address] [place] [address], [address] [place] [address] [email or web address] PCP - General 07/02/17 Petra Murillo PA [address] [place] [address] Historical LMR Provider 05/23/17 2 Alissa Young NP 1 [place] [address] Historical LMR Provider 05/23/17 2 Zeina Rueda DO [address] [place] [address] 7 [place] [address] [email or web address] Historical LMR Provider 05/23/17 Rainer Mendez MD [address] [place] [address] [email or web address] Historical LMR Provider 05/23/17 Jorge Hale DO [address] [place] [address] [facility], [place] [address] [email or web address] Historical LMR Provider 05/23/17 08/10/21 Daniella Villeda FNP [address] [place] [address] 7 [place] [address] [email or web address] Historical LMR Provider 05/23/17 Louis Johnson MD [address] [place] [address], 2nd [place] [address] Historical LMR Provider 05/23/17 08/10/21 Maya Wilson MD [address] [place] [address] 7 [place] [address] [email or web address] Historical LMR Provider 05/23/17 Dexter Lamb MD [address] [place] [address] 7 [place] [address] Historical LMR Provider 05/23/17 2 Elizabeth Samaniego MD [address] [place] [address] 7 [place] [address] [email or web address] Historical LMR Provider 05/23/17 Pilo Haro MD [address] [place], [place] [address] [place] [address] [email or web address] Historical LMR Provider 05/23/17 08/10/21 Elizabeth Samaniego MD [address] [place] [address] 7 [place] [address] [email or web address] Insurance Assigned Provider 11/07/2302/06/24 documented as of this encounter Additional Source Comments The information contained in this document represents components of the legal health record. It is not the complete legal health record.[facility]
--- OUTSIDE RECORDS SUMMARY | 2025-04-11 15:23 | XMS_ITS | Encounter Summary ---
Author Organization [facility] Address [address] [address] Phone Care Team Providers Care Green Promotions Specialist Name Role Phone Petra Murillo Unavailable [phone] Alissa Young PUBLIC POLICY MANAGER Unavailable Zeina Rueda DO Unavailable Rainer Mendez MD Unavailable Jorge Hale DO Unavailable Daniella VilledaP Unavailable Louis Johnson MD Unavailable Maya Wilson MD Unavailable [phone] Dexter Lamb MD Unavailable [phone] Elizabeth Samaniego MD Unavailable [phone] Pilo Haro MD Unavailable Elizabeth Samaniego MD Primary Care Provider Elizabeth Samaniego MD Unavailable Encounter Details Date Type Department Care Team (Late st Contact Info) Description 02/04/2018 Ancillary Orders Virtual Department 30 [place] [address] Juany Mosqueda PA Kidney stone; Urinary frequency [...] Info) Description 06/20/2025 12:15 PM EST Evaluation [facility] Audiology [address] [address] Heide Fried AuD 243 [place] [address] [email or web address] 06/20/2025 1:00 PM EST Office Visit [facility] Otology [address] [address] Joe Alonzo MD [address] [facility] [place] [address] [email or web address] documented as of this encounter Visit Diagnoses Diagnosis Kidney stone Calculus of kidney Urinary frequency documented in this encounter Additional Health Concerns Infection Onset Date Last Indicated Resolved Time CoV-Risk 08/13/2020 08/13/2020 08/23/2020 1:25 AM EST CoV-Risk Comment:Per Ambulatory Triage Form 03/16/2024 03/16/202403/27 1:22 AM EDT documented as of this encounter Care Teams Green Promotions Specialist Relationship Specialty Start Date End Date Elizaebth Samaniego MD [address] [place] [address], [address] [place] [address] PCP - General 07/02/17 Petra Murillo [place] [address] Historical LMR Provider 05/23/17 2 Alissa Young NP 1 [place] [address] Historical LMR Provider 05/23/17 2 Zeina Rueda DO [address] [place] [address] 7 [place] [address] [email or web address] Historical LMR Provider 05/23/17 Rainer Mendez MD [address] [place] [address] [email or web address] Historical LMR Provider 05/23/17 Jorge Hale DO [address] [place] [address] [facility], [place] [address] Historical LMR Provider 05/23/17 08/10/21 Daniella Villeda FNP [address] [place] [address] 7 [place] [address] Historical LMR Provider 05/23/17 Louis Johnson MD [address] [place] [address], [address] [place] [address] Historical LMR Provider 05/23/17 08/10/21 Maya Wilson MD [address] [place] [address] 7 [place] [address] [email or web address] Historical LMR Provider 05/23/17 Dexter Lamb MD [address] [place] [address] 7 [place] [address] Historical LMR Provider 05/23/17 2 Elizabeth Samaniego MD [address] [place] [address] 7 [place] [address] [email or web address] Historical LMR Provider 05/23/17 Pilo Haro MD [address] [place], [place] [address] [place] [address] [email or web address] Historical LMR Provider 05/23/17 08/10/21 Elizabeth Samaniego MD [address] [place] [address] 7 [place] [address] [email or web address] Insurance Assigned Provider 11/07/2302/06/24 documented as of this encounter Additional Source Comments The information contained in this document represents components of the legal health record. It is not the complete legal health record.[facility]
--- OUTSIDE RECORDS SUMMARY | 2025-04-11 15:23 | XMS_ITS | Encounter Summary ---
Author Organization [facility] Address [address] [address] Phone Care Team Providers Care Development Manager Name Role Phone Petra Murillo Unavailable [phone] Alissa Young MUNITIONS WORKER Unavailable Zeina Rueda DO Unavailable Rainer Mendez MD Unavailable Jorge Hale DO Unavailable Daniella VilledaP Unavailable Louis Johnson MD Unavailable Maya Wilson MD Unavailable [phone] Dexter Lamb MD Unavailable Elizabeth Samaniego MD Unavailable Pilo Haro MD Unavailable Elizabeth Samaniego MD Primary Care Provider Elizabeth Samaniego MD Unavailable Encounter Details Date Type Department Care Team (Late st Contact Info) Description 05/07/2018 Procedure Pass [facility], [address] [address] Social History Tobacco Use Types Packs/Day Years [...] 06/20/2025 12:15 PM EST Evaluation [facility] [place] [address] [address] Heide Fried AuD [address] [place] [address] [email or web address] 06/20/2025 1:00 PM EST Office Visit [facility] [place] [address] [address] Joe Alonzo MD 243 [facility] [place] [address] [email or web address] documented as of this encounter Visit Diagnoses Not on filedocumented in this encounter Additional Health Concerns Infection Onset Date Last Indicated Resolved Time CoV-Risk 08/13/2020 08/13/2020 08/23/2020 1:25 AM EST CoV-Risk Comment:Per Ambulatory Triage Form 03/16/2024 03/16/202403/27 1:22 AM EDT documented as of this encounter Care Teams Development Manager Relationship Specialty Start Date End Date Elizabeth Samaniego MD [address] [place] [address], [address] [place] [address] PCP - General 07/02/17 Petra Murillo PA [facility] [place] [address] Historical LMR Provider 05/23/17 2 Alissa Young NP 1 [place] [address] Historical LMR Provider 05/23/17 2 Zeina Rueda DO [address] [place] [address] 7 [place] [address] [email or web address] Historical LMR Provider 05/23/17 Rainer Mendez MD [address] [place] [address] [email or web address] Historical LMR Provider 05/23/17 Jorge Hale DO [address] [place] [address] [facility], [place] [address] Historical LMR Provider 05/23/17 08/10/21 Daniella Villeda FNP [address] [place] [address] Historical LMR Provider 05/23/17 Louis Johnson MD [address] [place] [address], 2nd [place] [address] Historical LMR Provider 05/23/17 08/10/21 Maya Wilson MD [address] [place] [address] Historical LMR Provider 05/23/17 Dexter Lamb MD 236 [facility] 7 [place] [address] Historical LMR Provider 05/23/17 2 Elizabeth Samaniego MD [address] [place] [address] [place] [address] [email or web address] Historical LMR Provider 05/23/17 Pilo Haro MD [address] [place] [address] [address] [place] [address] [email or web address] Historical LMR Provider 05/23/17 08/10/21 Elizabeth Samaniego MD [address] [place] [address] [place] [address] [email or web address] Insurance Assigned Provider 11/07/2302/06/24 documented as of this encounter Additional Source Comments The information contained in this document represents components of the legal health record. It is not the complete legal health record.[facility]
--- OUTSIDE RECORDS SUMMARY | 2025-04-11 15:23 | XMS_ITS | Encounter Summary ---
Author Organization [facility] Address [address] [address] Phone Care Team Providers Care Outsole Compressor Name Role Phone Petra Murillo Unavailable [phone] Alissa Young GROUND SUPPORT EQUIPMENT FITTER Unavailable [phone] Zeina Rueda DO Unavailable Rainer Mendez MD Unavailable Jorge Hale DO Unavailable Daniella Villeda PROCUREMENT REPRESENTATIVE Unavailable Louis Johnson MD Unavailable Maya Wilson MD Unavailable [phone] Dexter Lamb MD Unavailable [phone] Elizabeth Samaniego MD Unavailable [phone] Pilo Haro MD Unavailable Elizabeth Samaniego MD Primary Care Provider Elizabeth Samaniego MD Unavailable [phone] Encounter Details Date Type Department Care Team (Late st Contact Info) Description 07/05/2019 Procedure Pass [facility] [address] [place] [address] Social History Tobacco Use Types [...] Info) Description 06/20/2025 12:15 PM EST Evaluation [facility] Audiology [address] [address] Heide Fried AuD [address] [place] [address] [email or web address] 06/20/2025 1:00 PM EST Office Visit [facility] Otology [address] [address] Joe Alonzo MD 243 [facility] [place] [address] [email or web address] documented as of this encounter Visit Diagnoses Not on filedocumented in this encounter Additional Health Concerns Infection Onset Date Last Indicated Resolved Time CoV-Risk 08/13/2020 08/13/2020 08/23/2020 1:25 AM EST CoV-Risk Comment:Per Ambulatory Triage Form 03/16/2024 03/16/202403/27 1:22 AM EDT documented as of this encounter Care Teams Outsole Compressor Relationship Specialty Start Date End Date Elizabeth Samaniego MD [address] [place] [address], [address] [place] [address] [email or web address] PCP - General 07/02/17 Petra Murillo [place] [address] Historical LMR Provider 05/23/17 2 Alissa Young NP 1 [place] [address] Historical LMR Provider 05/23/17 2 Zeina Rueda DO [address] [place] [address] 7 [place] [address] [email or web address] Historical LMR Provider 05/23/17 Rainer Mendez MD [address] [place] [address] [email or web address] Historical LMR Provider 05/23/17 Jorge Hale DO [address] [place] [address] [facility] Medicine, [place] [address] [email or web address] Historical LMR Provider 05/23/17 08/10/21 Daniella Villeda FNP [address] [place] [address] 7 [place] [address] Historical LMR Provider 05/23/17 Louis Johnson MD [address] [place] [address], 2nd [place] [address] Historical LMR Provider 05/23/17 08/10/21 Maya Wilson MD [address] [place] [address] 7 [place] [address] Historical LMR Provider 05/23/17 Dexter Lamb MD 236 [facility] [address] [place] [address] Historical LMR Provider 05/23/17 2 Elizabeth Samaniego MD [address] [place] [address] 7 [place] [address] [email or web address] Historical LMR Provider 05/23/17 Pilo Haro MD [address] [place], [place] [address] [place] [address] [email or web address] Historical LMR Provider 05/23/17 08/10/21 Elizabeth Samaniego MD [address] [place] [address] 7 [place] [address] [email or web address] Insurance Assigned Provider 11/07/2302/06/24 documented as of this encounter Additional Source Comments The information contained in this document represents components of the legal health record. It is not the complete legal health record.[facility]
--- OUTSIDE RECORDS SUMMARY | 2025-04-11 15:23 | XMS_ITS | Encounter Summary ---
Author Organization [facility] Address [address] [facility] [address] [place] [address] Phone Care Team Providers Care Forestry Tree Pruner Name Role Phone Petra Murillo Unavailable [phone] Alissa Young NP Unavailable Zeina Rueda [...] st Contact Info) Description 08/22/2019 Ancillary Orders [facility], X-Ray - [address] [address] Callie Alvarado, INDUSTRIAL PHARMACIST [address] [place] [address] [email or web address] Left shoulder pain, unspecified chronicity Social History [...] Info) Description 06/20/2025 12:15 PM EST Evaluation [facility] [place] [address] [address] Heide Fried AuD [address] [place] [address] [email or web address] 06/20/2025 1:00 PM EST Office Visit [facility] Otology [address] [address] Joe Alonzo MD 243 [facility] [place] [address] [email or web address] documented as of this encounter Results * [...] joint. POS - [id number] us Callie Alvarado NP IMG XR UPPER EXTREMITY Final Res ult documented in this encounter Visit Diagnoses Diagnosis Left shoulder pain, unspecified chronicity Left shoulder pain, unspecified chronicity documented in this encounter Additional Health Concerns Infection Onset Date Last Indicated Resolved Time CoV-Risk 08/13/2020 08/13/2020 08/23/2020 1:25 AM EST CoV-Risk Comment:Per Ambulatory Triage Form 03/16/2024 03/16/202403/27 1:22 AM EDT documented as of this encounter Care Teams Forestry Tree Pruner Relationship Specialty Start Date End Date Elizabeth Samaniego MD [address] [place] [address] 7 [place] [address] PCP - General 07/02/17 Petra Murillo PA [address] [place] [address] Historical LMR Provider 05/23/17 2 Alissa Young NP 1 [facility] [place] [address] Historical LMR Provider 05/23/17 2 Zeina Rueda DO [address] [place] [address] 7 [place] [address] [email or web address] Historical LMR Provider 05/23/17 Rainer Mendez MD [address] [place] [address] [email or web address] Historical LMR Provider 05/23/17 Jorge Hale DO [address] [place] [address] Orthopedics & Sports Medicine, [place] [address] [email or web address] Historical LMR Provider 05/23/17 08/10/21 Daniella Villeda FNP [address] [place] [address] [email or web address] Historical LMR Provider 05/23/17 Louis Johnson MD [address] [place] [address] [email or web address] Historical LMR Provider 05/23/17 08/10/21 Maya Wilson MD [address] [place] [address] 7 [place] [address] [email or web address] Historical LMR Provider 05/23/17 Dexter Lamb MD [address] [place] [phone] Historical LMR Provider 05/23/17 2 Elizabeth Samaniego MD 234 [facility], [address] [place] [address] [email or web address] Historical LMR Provider 05/23/17 Pilo Haro MD [address] [place] [address] [address] [place] [address] [email or web address] Historical LMR Provider 05/23/17 08/10/21 Elizabeth Samaniego MD 234 [facility], [address] [place] [address] [email or web address] Insurance Assigned Provider 11/07/2302/06/24 documented as of this encounter Additional Source Comments The information contained in this document represents components of the legal health record. It is not the complete legal health record.[facility]
--- OUTSIDE RECORDS SUMMARY | 2025-04-11 15:23 | XMS_ITS | Encounter Summary ---
Author Organization [facility] Address [address] [facility] [address] [place] [address] Phone Care Team Providers Care Operations Architect Name Role Phone Petra Murillo Unavailable [phone] Alissa Young BROACH OPERATOR Unavailable Zeina Rueda DO Unavailable Rainer Mendez MD Unavailable Jorge Hale DO Unavailable Daniella Villeda AUTO BODY MECHANIC APPRENTICE Unavailable Louis Johnson MD Unavailable Maya Wilson MD Unavailable Dexter Lamb MD Unavailable Elizabeth Samaniego MD Unavailable [phone] Pilo Haro MD Unavailable Elizabeth Samaniego MD Primary Care Provider Elizabeth Samaniego MD Unavailable [phone] Encounter Details Date Type Department Care Team (Late st Contact Info) Description 09/22/2017 Procedure Pass [facility], Ct Scan - [address] [address] Social History Tobacco Use Types Packs/Day Years [...] Info) Description 06/20/2025 12:15 PM EST Evaluation [facility] [place] [address] [address] Heide Fried AuD [address] [place] [address] [email or web address] 06/20/2025 1:00 PM EST Office Visit [facility] [place] [address] [address] Joe Alonzo MD 243 [facility] [place] [address] [email or web address] documented as of this encounter Visit Diagnoses Not on filedocumented in this encounter Additional Health Concerns Infection Onset Date Last Indicated Resolved Time CoV-Risk 08/13/2020 08/13/2020 08/23/2020 1:25 AM EST CoV-Risk Comment:Per Ambulatory Triage Form 03/16/2024 03/16/202403/27 1:22 AM EDT documented as of this encounter Care Teams Operations Architect Relationship Specialty Start Date End Date Elizabeth Samaniego MD [address] [place] [address], [address] [place] [address] PCP - General 07/02/17 Petra Murillo [place] [address] [address] Historical LMR Provider 05/23/17 2 Alissa Young NP 1 [place] [address] Historical LMR Provider 05/23/17 2 Zeina Rueda DO [address] [place] [address] 7 [place] [address] [email or web address] Historical LMR Provider 05/23/17 Rainer Mendez MD [address] [place] [address] [email or web address] Historical LMR Provider 05/23/17 Jorge Hale DO [address] [place] [address] Orthopedics & Sports Medicine, [place] [address] Historical LMR Provider 05/23/17 08/10/21 Daniella Villeda FNP [address] [place] [address] Historical LMR Provider 05/23/17 Louis Johnson MD [address] [place] [address], 2nd [place] [address] Historical LMR Provider 05/23/17 08/10/21 Maya Wilson MD [address] [place] [address] Historical LMR Provider 05/23/17 Dexter Lamb MD 236 [facility] 7 [place] [address] Historical LMR Provider 05/23/17 2 Elizabeth Samaniego MD [address] [place] [address] 7 [place] [address] [email or web address] Historical LMR Provider 05/23/17 Pilo Haro MD [address] [place], [place] [address] [place] [address] [email or web address] Historical LMR Provider 05/23/17 08/10/21 Elizabeth Samaniego MD [address] [place] [address] 7 [place] [address] [email or web address] Insurance Assigned Provider 11/07/2302/06/24 documented as of this encounter Additional Source Comments The information contained in this document represents components of the legal health record. It is not the complete legal health record.[facility]
--- OUTSIDE RECORDS SUMMARY | 2025-04-11 15:23 | XMS_ITS | Clinical Summary ---
Author Organization [facility] Address [address] [address] Phone Care Team Providers Care Principal Secretary Name Role Phone Zeina Rueda Carlos NGUYEN Unavailable [phone] Rainer Mendez MD Unavailable Daniella Villeda HAT BLOCKER Unavailable Maya Wilson MD Unavailable Elizabeth Samaniego MD Unavailable Elizabeth Samaniego MD Primary Care Provider [phone] Allergies No known active allergies Medications omeprazole [...] do psa and meds His dad had [place] so think about stress test of CAC [...] shows L5/S1 nerve root stenosis. Injections with [facility] were not helpful. We will refer him to [facility] pain management, and try physical therapy. [...] towards needing replacement and he is seeing [facility] for this - scheduled 07/2019 but could not do this based on insurance He now needs this at [facility] but this has been postponed due [...] I gave guidance regarding rest, fluids and jzbp-[id number]-[id number] medication as needed. I informed him that [...] issues or concerns. He understands and agrees. terminologist current use of non -steroidal anti-inflammatories (NSAID) [...] Description 03/28/2025 10:30 AM EDT Office Visit [address] [place] [address] Elizabeth Samaniego MD Yount, Elizabeth B, PT Lumbar back pain with radiculopathy affecting left lower extremity (Primary Dx) 03/21/2025 1:30 PM EDT Office Visit [address] [place] [address] Elizabeth Samaniego MD Yount, Elizabeth B, PT Lumbar back pain with radiculopathy affecting left lower extremity (Primary Dx) 03/17/[address] [address] Ant Mcmahon, DO Medication Refill 03/14/2025 1:30 PM EDT Office Visit [address] [place] [address] Elizabeth Samaniego MD Yount, Elizabeth B, PT Lumbar back pain with radiculopathy affecting left lower extremity (Primary Dx) 03/07/2025 1:30 PM EDT Office Visit [address] [place] [address] Elizabeth Samaniego MD Yount, Elizabeth B, PT Lumbar back pain with radiculopathy affecting left lower extremity (Primary Dx) 03/03/[address] [address] Janneth Whitten LPN CAC results 03/02/2025 Orders Only [facility] [address] [place] [address] ProviderJeffrey MD 03/01/2025 Orders Only [facility] [address] [place] [address] ProviderJeffrey MD 02/28/2025 2:15 PM EDT Office Visit [facility] [address] [place] [address] Elizabeth Samaniego MD LorettaEloisa, PT Lumbar back [...] Status Comments Brother Alive Father (Age 61) [place] age 61 Mother Paternal Grandfather Sister 1 [...] high school, GED, job training, learning the Israeli language, technical skills, or developing parenting skills)? [...] Info) Description 06/20/2025 12:15 PM EST Evaluation [facility] [place] [address] [address] Heide Fried AuD [address] [place] [address] [email or web address] 06/20/2025 1:00 PM EST Office Visit [facility] Otology [address] [address] Joe Alonzo MD [address] [place] [address] - [place] [address] [email or web address] Health Maintenance Due Date Last Done Comments COLOGUARD 2005 FIT TEST 2005 FOBT 2005 SIGMOIDOSCOPY 2005 VIRTUAL COLONOSCOPY 2005 INFLUENZA VACCINE (#1) 2025 4, 05/03/2022, 04/17/2020, Additional history exists DEPRESSION SCREENING [...] EDT Routine general medical examination at a health care facility HM COLONOSCOPY FOR RESULT ENTRY ONLY Routine 01/29/2023 from Last 3 Months or Most Recently Relevant to Health Maintenance Results * Outside XR Spine Report Only (03/02/2025 2:22 PM EDT) Historical Provider IMG XR SPINE Final Res ult * Outside Cardiology Report Only (03/01/2025 2:04 PM EDT) Result [facility] Historical Provider CV CARDIAC SERVICES ORDER ALINA Final Result * (ABNORMAL) Lipid panel (12/23/2024 9:19 AM EDT) HDL 53 mg/dL [facility] Comment: Interpretation <40 mg/dL: Low HDL cholesterol (major risk factor for CHD) Greater than or equal to 60 mg/dL: High HDL cholesterol ( negative risk factor for CHD) HDL - cholesterol is affected by a number of factors, e.g. smoking, excerise, hormones, sex and age. CHOLESTEROL 218 0 - 240 mg/dL [facility] TRIGLYCERIDES 99 30 - 160 mg/dL [facility] LDL 145(H) 50 - 129 mg/dL [facility] Comment: LDL levels in terms of risk for coronary heart disease: <100 mg/dL: Optimal 100-129 mg/dL: Near or above optimal 130-159 mg/dL: Borderline high 160-189 mg/dL: High >190 mg/dL: Very High CARDIAC RISK RATIO 4.1 3.4 - 5.0 [facility] Blood 12/23/2024 9:19 AM EDT 12/23/2024 9:25 AM EDT Result [facility] Elizabeth Samaniego MD LAB BLOOD ORDERABLES Final R esult [address] [address] * HM COLONOSCOPY FOR RESULT ENTRY ONLY (01/29/2023) Result [facility] Historical Provider HEALTH MAINTENANCE Final Result from Last 3 Months or Most Recently Relevant to Health Maintenance Insurance [facility] Advance Directives For more information, please contact: [phone] (9AM - 5PM [facility], Thursday-Thursday) Documents on File Type Date Recorded Patient Oracle Bpm Consultant Expl anation Advance Directive - Non Epic LMR 02/02/2015 12:00 AM Care Teams Principal Secretary Relationship Specialty Start Date End Date Elizabeth Samaniego MD [address] [place] [address] [email or web address] PCP - General 07/02/17 Zeina Rueda DO [address] [place] [address] [email or web address] Historical LMR Provider 05/23/17 Rainer Mendez MD [address] [place] [address] [email or web address] Historical LMR Provider 05/23/17 Daniella Villeda FNP [address] [place] [address] [email or web address] Historical LMR Provider 05/23/17 Maya Wilson MD [address] [place] [address] [email or web address] Historical LMR Provider 05/23/17 Elizabeth Samaniego MD [address] [place] [address] [email or web address] Historical LMR Provider 05/23/17 Additional Source Comments The information contained in this document represents components of the legal health record. It is not the complete legal health record.[facility]
--- OUTSIDE RECORDS SUMMARY | 2025-04-11 15:23 | XMS_ITS | Encounter Summary ---
Author Organization [facility] Address [address] [facility] [address] [place] [address] Phone Care Team Providers Care Preschool Associate Teacher Name Role Phone Petra Murillo Unavailable [phone] Alissa Young HAND REAMER Unavailable Zeina Rueda DO Unavailable Rainer Mendez MD Unavailable Jorge Hale DO Unavailable Daniella Villeda TRUCK DRIVER TEAMSTER Unavailable Louis Johnson MD Unavailable Maya Wilson MD Unavailable [phone] Dexter Lamb MD Unavailable [phone] Elizabeth Samaniego MD Unavailable Pilo Haro MD Unavailable Elizabeth Samaniego MD Primary Care Provider [phone] Elizabeth Samaniego MD Unavailable [phone] Encounter Details Date Type Department Care Team (Latest Contact Info) Description 02/10/[address] [facility] Laboratory [address] 2nd Floor [place], [place] [address] Nola Najera [place] [address] [address] [email or web address] Benign prostatic hyperplasia without lower urinary tract [...] 12:15 PM EST Evaluation [facility] [place] [address] [address] Heide Fried AuD [address] [place] [address] [email or web address] 06/20/2025 1:00 PM EST Office Visit [facility] [address] [address] Joe Alonzo MD 243 [facility] [place] [address] [email or web address] documented as of this encounter Results * PSA (screening) (02/10/2018 9:21 AM EDT) PSA 0.74 0 - 4.00 ng/mL [facility] Blood 02/10/2018 9:21 AM EDT 02/10/2018 9:24 AM EDT us Nola LAST LAB BLOOD ORDERABLES Final Result [facility] [address] [place] [address] documented in this encounter Visit Diagnoses Diagnosis Benign prostatic hyperplasia without lower urinary tract symptoms- Primary documented in this encounter Additional Health Concerns Infection Onset Date Last Indicated Resolved Time CoV-Risk 08/13/2020 08/13/2020 08/23/2020 1:25 AM EST CoV-Risk Comment:Per Ambulatory Triage Form 03/16/2024 03/16/202403/27 1:22 AM EDT documented as of this encounter Care Teams Preschool Associate Teacher Relationship Specialty Start Date End Date Elizabeth Samaniego MD [address] [place] [address] 7 [place] [address] [email or web address] PCP - General 07/02/17 Petra Murillo PA [facility] [place] [address] Historical LMR Provider 05/23/17 2 Alissa Young NP 1 [place] [address] Historical LMR Provider 05/23/17 2 Zeina Rueda DO [address] [place] [address] Historical LMR Provider 05/23/17 Rainer Mendez MD [address] [place] [address] [email or web address] Historical LMR Provider 05/23/17 Jorge Hale DO [address] [place] [address] Orthopedics & Sports Medicine, [facility] [place] [address] Historical LMR Provider 05/23/17 08/10/21 JohanaDaniella martinez FNP [address] [place] [address] 7 [place] [address] [email or web address] Historical LMR Provider 05/23/17 Louis Johnson MD [address] [place] [address], 2nd [place] [address] Historical LMR Provider 05/23/17 08/10/21 Maya Wilson MD [address] [place] [address] 7 [place] [address] [email or web address] Historical LMR Provider 05/23/17 Dexter Lamb MD [address] [place] [phone] Historical LMR Provider 05/23/17 2 Elizabeth Samaniego MD [address] [place] [address] 7 [place] [address] [email or web address] Historical LMR Provider 05/23/17 Piol Haro MD [address] [place], [place] [address] [place] [address] [email or web address]. [facility] Historical LMR Provider 05/23/17 08/10/21 Elizabeth Samaniego MD [address] [place] [address] 7 [place] [address] [email or web address] Insurance Assigned Provider 11/07/2302/06/24 documented as of this encounter Additional Source Comments The information contained in this document represents components of the legal health record. It is not the complete legal health record.[facility]
--- OUTSIDE RECORDS SUMMARY | 2025-04-11 15:24 | XMS_ITS | Encounter Summary ---
Author Organization [facility] Address [address] [facility] [address] [place] [address] Phone Care Team Providers Care Form Setter Metal Road Forms Name Role Phone Petra Murillo Unavailable [phone] Alissa Young BATCH MIXING TRUCK DRIVER Unavailable Zeina Rueda DO Unavailable Rainer Mendez MD Unavailable Jorge Hale DO Unavailable Daniella Villeda BENCH PATTERNMAKER METAL Unavailable Louis Johnson MD Unavailable Maya Wilson MD Unavailable Dexter Lamb MD Unavailable [phone] Elizabeth Samaniego MD Unavailable Pilo Haro MD Unavailable Elizabeth Samaniego MD Primary Care Provider Elizabeth Samaniego MD Unavailable Encounter Details Date Type Department Care Team (Late st Contact Info) Description 12/09/2020 Procedure Pass [facility], Ct Scan - [address] [address] Social History Tobacco Use Types Packs/Day Years [...] high school, GED, job training, learning the Australian language, technical skills, or developing parenting skills)? [...] Info) Description 06/20/2025 12:15 PM EST Evaluation [facility] Audiology [address] [address] Heide Fried AuD [address] [place] [address] [email or web address] 06/20/2025 1:00 PM EST Office Visit [facility] Otology [address] [place] [address] Joe Alonzo MD 243 [facility] [place] [address] [email or web address] documented as of this encounter Visit Diagnoses Not on filedocumented in this encounter Additional Health Concerns Infection Onset Date Last Indicated Resolved Time CoV-Risk Comment:Per Ambulatory Triage Form 03/16/2024 03/16/202403/27 1:22 AM EDT Assessment Noted Time PHQ-2 Depression Total Score: 1 12/10/19 9:48 PM EDT documented as of this encounter Care Teams Form Setter Metal [employer] Forms Relationship Specialty Start Date End Date Elizabeth Samaniego MD [address] [place] [address] 7 [place] [address] PCP - General 07/02/17 Petra Murillo PA [facility] [place] [address] Historical LMR Provider 05/23/17 2 Alissa Young NP [address] [place] [address] Historical LMR Provider 05/23/17 2 Zeina Rueda DO [address] [place] [address] 7 [place] [address] Historical LMR Provider 05/23/17 Rainer Mendez MD [address] [place] [address] [email or web address] Historical LMR Provider 05/23/17 Jorge Hale DO [address] [place] [address] Orthopedics & Sports Medicine, [facility] [place] [address] Historical LMR Provider 05/23/17 08/10/21 Daniella Villeda FNP [address] [place] [address] 7 [place] [address] [email or web address] Historical LMR Provider 05/23/17 Louis Johnson MD [address] [place] [address], 2nd [place] [address] [email or web address] Historical LMR Provider 05/23/17 08/10/21 Maya Wilson MD [address] [place] [address] 7 [place] [address] [email or web address] Historical LMR Provider 05/23/17 Dexter Lamb MD [address] [place] [address] 7 [place] [address] Historical LMR Provider 05/23/17 2 Elizabeth Samaniego MD [address] [place] [address] 7 [place] [address] [email or web address] Historical LMR Provider 05/23/17 Pilo Haro MD [address] [place], [place] [address] [place] [address] [email or web address] Historical LMR Provider 05/23/17 08/10/21 Elizabeth Samaniego MD [address] [place] [address] [address] [place] [address] [email or web address] Insurance Assigned Provider 11/07/2302/06/24 documented as of this encounter Additional Source Comments The information contained in this document represents components of the legal health record. It is not the complete legal health record.[facility]
--- OUTSIDE RECORDS SUMMARY | 2025-04-11 15:24 | XMS_ITS | Encounter Summary ---
Author Organization [facility] Address [address] [place] [address] Phone Care Team Providers Care Horse Riding Coach Or Instructor Name Role Phone Elizabeth Samaniego MD Primary Care Provider Encounter Details Date Type Department Care Team (Late st Contact Info) Description 10/29/2023 Documentation Only [facility] [place], [address] [place] [address] Nehemias AlvaradoFLOURNOY, [place] [address] [place] [address] Social History Tobacco Use Types [...] on filedocumented in this encounter Care Teams Horse Riding Coach Or Instructor Relationship Specialty Start Date End Date Elizabeth Samaniego MD [address] [place] [address], [facility] 7 [place], [place] [id number] PCP - General Family Medicine 10/29/23 documented as of this encounter
--- OUTSIDE RECORDS SUMMARY | 2025-04-11 15:24 | XMS_ITS | Encounter Summary ---
Author Organization [facility] Address [address] [place] [address] Phone Care Team Providers Care Catering Coordinator Name Role Phone Zeina Rueda Carlos NGUYEN Unavailable [phone] Rainer Mendez MD Unavailable Daniella VilledaP Unavailable [phone] Maya Wilson MD Unavailable [phone] Elizabeth Samaniego MD Unavailable [phone] Elizabeth Samaniego MD Primary Care Provider [phone] Elizabeth Samaniego MD Unavailable Encounter Details Date Type Department Care Team (Late st Contact Info) Description 09/03/2023 Procedure Pass [address] [place] [address] Social History Tobacco Use Types Packs/Day Years [...] high school, GED, job training, learning the [place] Citizen language, technical skills, or developing parenting skills)? [...] Description 06/20/2025 12:[address] [facility] Audiology [facility] [address] [place] [address] Heide Fried AuD [address] [place] [address] [email or web address] 06/20/2025 1:00 PM EST Office Visit [facility] Otology [facility] [place] [address] [facility] 2nd [place] [address] Joe Alonzo MD [address] [place] [address] [place] [address] [email or web address] documented as of this encounter Visit Diagnoses Not on filedocumented in this encounter Additional Health Concerns Infection Onset Date Last Indicated Resolved Time CoV-Risk Comment:Per Ambulatory Triage Form 03/16/2024 03/16/202403/27 1:22 AM EDT Assessment Noted Time PHQ-2 Depression Total Score: 2 09/05/19 3:42 PM EST documented as of this encounter Care Teams Catering Coordinator Relationship Specialty Start Date End Date Elizabeth Samaniego MD [address] [place] [address] 7 [place] [address] [email or web address] PCP - General 07/02/17 Zeina Rueda DO [address] [place] [address] 7 [place] [address] [email or web address] Historical LMR Provider 05/23/17 Rainer Mendez MD [address] [place] [address] [email or web address] Historical LMR Provider 05/23/17 Daniella Villeda FNP [address] [place] [address] 7 [place] [address] [email or web address] Historical LMR Provider 05/23/17 Maya Wilson MD [address] [place] [address] 7 [place] [address] [email or web address] Historical LMR Provider 05/23/17 Elizabeth Samaniego MD [address] [place] [address] 7 [place] [address] [email or web address] Historical LMR Provider 05/23/17 Elizabeth Samaniego MD [address] [place] [address] 7 [place] [address] [email or web address] Insurance Assigned Provider 11/07/2302/06/24 documented as of this encounter Additional Source Comments The information contained in this document represents components of the legal health record. It is not the complete legal health record.[facility]
--- OUTSIDE RECORDS SUMMARY | 2025-04-11 15:24 | XMS_ITS | Clinical Summary ---
Author Organization [facility], Address [address] [address] Phone Care Team Providers Care Transit Specialist Name Role Phone Elizabeth Samaniego MD Primary Care Provider Social History Tobacco Use Types Packs/Day Years [...] patient's age to complete this topic Insurance [facility] Care Teams Transit Specialist Relationship Specialty Start Date End Date Elizabeth Samaniego MD [address] [place] [address], [address] [place] [address] PCP - General Family Medicine 10/29/23
== END 2025-04-11 14:09 | disposition home or self-care (01) ==
LOC: HO.HNS 13:05
PROVIDERS: PCP Family Medicine; Visit Provider Physician Assistant
DX: M54.12 Radiculopathy, cervical region (principal)
CPT/HCPCS: 99213

== ENCOUNTER → 2025-04-27 19:54 | Outpatient (BNV) | payer OTHER, SELFPAY | PROVIDERS: PCP Family Medicine; Visit Provider Radiology Diagnostic Radiology | DX: M43.16 Spondylolisthesis, lumbar region (principal); M48.02 Spinal stenosis, cervical region | CPT/HCPCS: 72141 ==

== ENCOUNTER 2025-04-27 19:55 | Outpatient (REF) | payer OTHER, SELFPAY ==
--- OUTSIDE RECORDS SUMMARY | 2025-04-25 09:00 | XMS_ITS | Encounter Summary ---
Author Organization [facility] Address [address] [facility] [address] [place] [address] Phone Care Team Providers Care Leaf Stamper Name Role Phone BandarDeborah mercedesjanes Gonzalez DO Unavailable [phone] Rainer Mendez MD Unavailable Daniella Villeda BOBBIN WINDER TENDER Unavailable [phone] Maya Wilson MD Unavailable [phone] Elizabeth Samaniego MD Unavailable [phone] Elizabeth Samaniego MD Primary Care Provider [phone] Reason for Visit * Physical Therapy (Within 2 weeks) - Authorized Specialty Diagnoses / Procedures Referred By Contac t Referred To Contact Physical Therapy Diagnoses Chronic bilateral low back pain with left-sided sciatica Spondylolisthesis of lumbar region Elizabeth Samaniego MD [address] [place] [address], [address] [place] [address] Phone: tel: fax: [email or web address] [address] [address] Phone: tel: Referral ID Status Reason Start Date Expiration Date V isits Requested Visits Authorized [id number] Authorized 12/23/2024 10/31/2025 60 60 Encounter Details Date Type Department Care Team (Late st Contact Info) Description 04/25/2025 9:00 AM EDT Office Visit [facility] 8 [place] [address] Elizabeth Samaniego MD [address] [place] [address], [address] [place], [place] [phone] [email or web address] Eloisa Burgos, PT 8 [place] [address] [email or web address] Lumbar back pain with radiculopathy affecting left [...] high school, GED, job training, learning the [place] language, technical skills, or developing parenting skills)? [...] Progress Notes * Eloisa Burgos, PT - 04/25/2025 9:00 AM EDT Physical Therapy Treatment Note Patient Name: Christofer Ladd Date of : 1960 Referring MD: Elizabeth Samaniego MD [address] [place] [address], [facility] 7 [place] [address] Evaluation Date: SOC Date: 02/28/25 Diagnosis: Lumbar [...] B foraminal stenosis This patient has attended 7 visits since the onset Physical Therapy. S: I need to get another MRI of my neck. Refereed several games and running on field and Thursday, L low back and L groin 4 pain. O: Stretches hamstrings foot on stool B, quadriceps standing B, ( stretches done lying down with some overpressure hip figure 4 standing B, Stretch r/l pectoral arm in horiz abd facing wall Heelcord stretch lunge at wallr/l 30 sec, standing knees together heel toward butt quadricep stretch r/l, Hip flexor stretch knee on stool r/l belly in r/l 2x 30 sec, Prone B ankle PF for 1 min. Reduced lordosis abdominal isometrics 4x 10 sec, Hooklying alternating r/l leg slides low back flat for 1 min, Hooklying march ups for 5 sec r/l belly in 1 min, Plank on feet and forearms 2x 30 sec. Self care: Spine basics with model. Manual: Self traction at countertop 2x 30 sec and door hang 2x 30 sec reduced lordosis ( not done) Stm lumbar fascia, low lumbar paraspinals, hip [...] chair and car. PT is indicated. Today, had ran and been referree for several ball games over weekend, hamstrings 65 r 70 l, prone knee flexion r 105, l 105, hip ER B 60, B IR 45, pain L low back and buttock decreased from 4 to 0. Pectoral stretch added B to keep thoracic extension rom. 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): In 6 week, improved oswestry 10 points for pain<6, improved keith donning socks, sit 1 hr, stand 1hr, transfer with less pain mornings P: Eloisa Burgos, [place] [id number] documented in this encounter Plan of Treatment Upcoming Encounters Date Type Department Care Team (Late st Contact Info) Description 06/06/2025 7:30 AM EST Office Visit [facility] 8 [place] [address] Elizabeth Samaniego MD [address] [place] [address] 7 [place] [address] [email or web address] Eloisa Burgos, PT 8 [place] [address] [email or web address] 06/20/2025 12:15 PM EST Evaluation [facility] Audiology [address] [address] Heide Fried AuD [address] [place] [address] [email or web address] 06/20/2025 1:00 PM EST Office Visit [facility] Otology [address] [address] Joe Alonzo MD [address] [place] [address] [email or web address] documented as of this encounter Visit Diagnoses Diagnosis Lumbar back pain with radiculopathy affecting left lower extremity- Primary documented in this encounter Additional Health Concerns Assessment Noted Time PHQ-2 Depression Total Score: 1 12/23/19 25 9:57 PM EDT documented as of this encounter Care Teams Leaf Stamper Relationship Specialty Start Date End Date Elizabeth Samaniego MD [address] [facility] 7 [place] [address] [email or web address] PCP - General 07/02/17 Zeina Rueda DO [address] [place] [address] 7 [place] [address] [email or web address] Historical LMR Provider 05/23/17 Rainer Mendez MD [address] [place] [address] [email or web address] Historical LMR Provider 05/23/17 Daniella Villeda FNP [address] [place] [address] [email or web address] Historical LMR Provider 05/23/17 Maya Wilson MD [address] [place] [address] [email or web address] Historical LMR Provider 05/23/17 Elizabeth Samaniego MD [address] [place] [address] [email or web address] Historical LMR Provider 05/23/17 documented as of this encounter Additional Source Comments The information contained in this document represents components of the legal health record. It is not the complete legal health record.[facility]
--- NOTE | ~2025-04-27 | MR_ITS ---
CLINICAL HISTORY: M54.12 - Radiculopathy, cervical region MR cervical spine without gadolinium Comparison: None provided Findings: C2-3: Grade 1 anterolisthesis C2 over C3. Mild left and significant right spondylitic neural foraminal stenosis. C4-5: Broad-based spondylitic disc bulge with moderate to severe central canal stenosis and moderate bilateral spondylitic neural foraminal stenosis. Grade 1 anterolisthesis of C4 over C5. C3-4: Mild broad-based spondylitic disc bulge with minimal central canal stenosis and no significant neural foraminal stenosis. C5-6: Broad-based disc bulge with spondylosis with rmex-kb-xowvyboo central canal stenosis, moderate right and aktg-xk-xiotnupe left spondylitic neural foraminal stenosis. C6-7: Broad-based disc bulge with mild central canal stenosis and mild bilateral spondylitic neural foraminal stenosis. T1-2: Broad-based disc bulge with moderate to severe central canal stenosis and moderate bilateral spondylitic neural foraminal stenosis. No acute fractures or pathologic bone lesions. No acute findings on limited view of the intracranial contents. No cervical fluid collections or masses. Cervical cord normal. IMPRESSION: 1. Grade 1 anterolisthesis of C2 over C3 and C4 over C5. 2. Moderate to severe central canal stenosis at C4-5 and T1-2. 3. Significant right neural foraminal stenosis at C2-3. 4. Moderate bilateral neural foraminal stenosis at C4-5 and T1-2. 5. Mild to moderate central canal stenosis at C5-6. 6. No acute fractures or pathologic bone lesions. This document has been electronically signed by: Azael Mcmahan MD on 04/27/2025 20:58:26
--- OUTSIDE RECORDS SUMMARY | 2025-04-27 20:06 | XMS_ITS | Encounter Summary ---
Author Organization [facility] Address [address] [address] Phone Care Team Providers Care Psychology Tech Name Role Phone Petra Murillo Unavailable [phone] Alissa Young CABLE MAINTAINER Unavailable Zeina Rueda DO Unavailable Rainer Mendez MD Unavailable Jorge Hale DO Unavailable Daniella Villeda SUPERVISOR WHEEL SHOP Unavailable Louis Johnson MD Unavailable [phone] Myaa Wilson MD Unavailable [phone] Dexter Lamb MD Unavailable [phone] Elizabeth Samaniego MD Unavailable Pilo Haro MD Unavailable Elizabeth Samaniego MD Primary Care Provider [phone] Elizabeth Samaniego MD Unavailable [phone] Encounter Details Date Type Department Care Team (Late st Contact Info) Description 07/05/2019 Procedure Pass [facility] 55 [place] [address] Social History Tobacco Use Types [...] Description 06/06/2025 7:30 AM EST Office Visit [facility] 8 [place] [address] Elizabeth Samaniego MD [address] [place] [address] 7 [place] [address] [email or web address] Eloisa Burgos, PT 8 [place] [address] [email or web address] 06/20/2025 12:15 PM EST Evaluation [facility] Audiology [address] [address] Heide Fried AuD [address] [place] [address] [email or web address] 06/20/2025 1:00 PM EST Office Visit [facility] Otology [address] [address] Joe Alonzo MD [address] [place] [address] [email or web address] documented as of this encounter Visit Diagnoses Not on filedocumented in this encounter Additional Health Concerns Infection Onset Date Last Indicated Resolved Time CoV-Risk 08/13/2020 08/13/2020 08/23/2020 1:25 AM EST CoV-Risk Comment:Per Ambulatory Triage Form 03/16/2024 03/16/202403/27 1:22 AM EDT documented as of this encounter Care Teams Psychology Tech Relationship Specialty Start Date End Date Elizabeth Samaniego MD [address] [place] [address] 7 [place] [address] [email or web address] PCP - General 07/02/17 Petra Murillo PA [facility] [place] [address] Historical LMR Provider 05/23/17 2 Alissa Young CABLE MAINTAINER 1 [place] [address] Historical LMR Provider 05/23/17 2 Zeina Rueda DO [address] [place] [address] [email or web address] Historical LMR Provider 05/23/17 Rainer Mendez MD [address] [place] [address] [email or web address] Historical LMR Provider 05/23/17 Jorge Hale DO [address] [place] [address] Orthopedics & Sports Medicine, [facility] [place] [address] Historical LMR Provider 05/23/17 08/10/21 Daniella Villeda FNP [address] [place] [address] 7 [place] [address] [email or web address] Historical LMR Provider 05/23/17 Louis Johnson MD [address] [place] [address], [place] [address] Historical LMR Provider 05/23/17 08/10/21 Maya Wilson MD [address] [place] [address] [address] [place] [address] [email or web address] Historical LMR Provider 05/23/17 Dexter Lamb MD [address] [place] [address] 7 [place] [address] Historical LMR Provider 05/23/17 2 Elizabeth Samaniego MD [address] [place] [address] 7 [place] [address] [email or web address] Historical LMR Provider 05/23/17 Pilo Haro MD [address] [place], [place] [address] [place] [address] [email or web address] Historical LMR Provider 05/23/17 08/10/21 Elizabeth Samaniego MD [address] [place] [address] 7 [place] [address] [email or web address] Insurance Assigned Provider 11/07/2302/06/24 documented as of this encounter Additional Source Comments The information contained in this document represents components of the legal health record. It is not the complete legal health record.[facility]
--- OUTSIDE RECORDS SUMMARY | 2025-04-27 20:06 | XMS_ITS | Encounter Summary ---
Author Organization [facility] Address [address] [address] Phone Care Team Providers Care Newcomer Hostess Name Role Phone Petra Murillo Unavailable Alissa Young PILOT BOAT CAPTAIN Unavailable Zeina Rueda DO Unavailable Rainer Mendez MD Unavailable Jorge Hale DO Unavailable Daniella Villeda CAR DELIVERER Unavailable Louis Johnson MD Unavailable [phone] Maya Wilson MD Unavailable Dexter Lamb MD Unavailable Elizabeth Samaniego MD Unavailable Pilo Haro MD Unavailable [phone] Elizabeth Samaniego MD Primary Care Provider Elizabeth Samaniego MD Unavailable [phone] Encounter Details Date Type Department Care Team (Late st Contact Info) Description 10/05/2019 Transcribe Orders [facility] Department 30 [place] [address] Brothers, Jaison Uribe MD [address] [place] [address] Social History Tobacco Use Types Packs/Day Years [...] Description 06/06/2025 7:30 AM EST Office Visit [facility] 8 [place] [address] Elizabeth Samaniego MD [address] [place] [address], [address] [place] [address] Eloisa Burgos, PT 8 [place] [address] 06/20/2025 12:15 PM EST Evaluation [facility] Audiology [address] [address] Heide Fried AuD [address] [place] [address] [email or web address] 06/20/2025 1:00 PM EST Office Visit [facility] Otology [address] [address] Joe Alonzo MD [address] [place] [address] [email or web address] documented as of this encounter Visit Diagnoses Not on filedocumented in this encounter Additional Health Concerns Infection Onset Date Last Indicated Resolved Time CoV-Risk 08/13/2020 08/13/2020 08/23/2020 1:25 AM EST CoV-Risk Comment:Per Ambulatory Triage Form 03/16/2024 03/16/202403/27 1:22 AM EDT documented as of this encounter Care Teams Newcomer Hostess Relationship Specialty Start Date End Date Elizabeth Samaniego MD [address] [place] [address] 7 [place] [address] [email or web address] PCP - General 07/02/17 Petra Murillo PA [facility] [place] [address] Historical LMR Provider 05/23/17 2 Alissa Young PILOT BOAT CAPTAIN 1 [place] [address] Historical LMR Provider 05/23/17 2 Zeina Rueda DO [address] [place] [address] 7 [place] [address] [email or web address] Historical LMR Provider 05/23/17 Rainer Mendez MD [address] [place] [address] [email or web address] Historical LMR Provider 05/23/17 Jorge Hale DO [address] [place] [address] Orthopedics & Sports Medicine, [place] [address] [email or web address] Historical LMR Provider 05/23/17 08/10/21 Daniella Villeda FNP [address] [place] [address] 7 [place] [address] Historical LMR Provider 05/23/17 Louis Johnson MD [address] [facility], [address] [place] [address] Historical LMR Provider 05/23/17 08/10/21 Maya Wilson MD [address] [place] [address] 7 [place] [address] [email or web address] Historical LMR Provider 05/23/17 Dexter Lamb MD [address] [place] [phone] Historical LMR Provider 05/23/17 2 Elizabeth Samaniego MD [address] [place] [address] 7 [place] [address] [email or web address] Historical LMR Provider 05/23/17 Pilo Haro MD [address] [place], [place] [address] [place] [address] [email or web address] Historical LMR Provider 05/23/17 08/10/21 Elizabeth Samaniego MD [address] [place] [address] 7 [place] [address] [email or web address] Insurance Assigned Provider 11/07/2302/06/24 documented as of this encounter Additional Source Comments The information contained in this document represents components of the legal health record. It is not the complete legal health record.[facility]
--- OUTSIDE RECORDS SUMMARY | 2025-04-27 20:06 | XMS_ITS | Encounter Summary ---
Author Organization [facility] Address [address] [address] Phone Care Team Providers Care Office Equipment Technician Name Role Phone BandarChandu mercedesZeinasharyn Gonzalez DO Unavailable Rainer Mendez MD Unavailable [phone] Daniella VilledaP Unavailable Maya Wilson MD Unavailable [phone] Elizabeth Samaniego MD Unavailable [phone] Elizabeth Samaniego MD Primary Care Provider Elizabeth Samaniego MD Unavailable Reason for Referral * MRI/CAT Scan - Closed Specialty Diagnoses / Procedures Referred By Amilcar rascon Referred To Contact Radiology Diagnoses Calculus of kidney Procedures CT Abdomen/Pelvis Alida Gutierrez PA Phone: tel: fax: [email or web address] Referral ID Status Reason Start Date Expiration Date Visits Re quested Visits Authorized [id number] Closed 04/18/2022 05/18/2022 1 1 Encounter Details Date Type Department Care Team (Latest Contact Info) Description 03/14/2022 Transcribe Orders Virtual Department 30 [place] [address] Alida Gutierrez PA [address] [facility] 103 [place] [address] [email or web address] Calculus of kidney (Primary Dx) Social History [...] high school, GED, job training, learning the [place] language, technical skills, or developing parenting skills)? [...] Description 06/06/2025 7:30 AM EST Office Visit [facility] Services [address] [place] [address] Elizabeth Samaniego MD [address] [place] [address], [address] [place] [address] [email or web address] LorettaEloisa rascon, PT 8 [place] [address] [email or web address] 06/20/2025 12:15 PM EST Evaluation [facility] Audiology [address] [address] Heide Fried AuD [address] [place] [address] [email or web address] 06/20/2025 1:00 PM EST Office Visit [facility] Otology [address] [address] Joe Alonzo MD [address] [place] [address] [email or web address] documented as of this encounter Results [...] documented as of this encounter Care Teams Office Equipment Technician Relationship Specialty Start Date End Date Elizabeth Samaniego MD [address] [place] [address] [email or web address] PCP - General 07/02/17 Zeina Rueda DO [address] [place] [address] [email or web address] Historical LMR Provider 05/23/17 Rainer Mendez MD [address] [place] [address] [email or web address] Historical LMR Provider 05/23/17 Daniella Villeda FNP [address] [place] [address] [email or web address] Historical LMR Provider 05/23/17 Maya Wilson MD [address] [place] [address] [email or web address] Historical LMR Provider 05/23/17 Elizabeth Samaniego MD [address] [place] [address] 7 [place] [address] [email or web address] Historical LMR Provider 05/23/17 Elizabeth Samaniego MD [address] [place] [address] 7 [place] [address] [email or web address] Insurance Assigned Provider 11/07/2302/06/24 documented as of this encounter Additional Source Comments The information contained in this document represents components of the legal health record. It is not the complete legal health record.[facility]
--- OUTSIDE RECORDS SUMMARY | 2025-04-27 20:06 | XMS_ITS | Encounter Summary ---
Author Organization [facility] Address [address] [address] Phone Care Team Providers Care Optometric Aide Name Role Phone Petra Murillo Unavailable [phone] Alissa Young PUMP SERVICER Unavailable Zeina Rueda DO Unavailable Rainer Mendez MD Unavailable Jorge Hale DO Unavailable Daniella Villeda SWEATBAND FLANGER Unavailable Louis Johnson MD Unavailable Maya Wilson MD Unavailable Dexter Lamb MD Unavailable Elizabeth Samaniego MD Unavailable Pilo Haro MD Unavailable Elizabeth Samaniego MD Primary Care Provider [phone] Elizabeth Samaniego MD Unavailable Encounter Details Date Type Department Care Team (Late st Contact Info) Description 02/05/2018 Ancillary Orders Virtual Department 30 [place], [place] [phone] Alex Romnao MD [address] [facility], [address] [place] [address] [email or web address] Calculus, kidney Social History Tobacco Use Types [...] Description 06/06/2025 7:30 AM EST Office Visit [facility] Rehabilitation Services 8 [place] [address] Elizabeth Samaniego MD [address] [place] [address], [address] [place] [address] [email or web address] Eloisa Burgos, PT 8 [place] [address] 06/20/2025 12:15 PM EST Evaluation [facility] Audiology [address] [address] Heide Fried AuD [address] [place] [address] [email or web address] 06/20/2025 1:00 PM EST Office Visit [facility] Otology [address] [address] Joe Alonzo MD 243 [place] [address] [email or web address] documented as of this encounter Results * US Kidneys and Bladder (02/08/2018 5:39 PM EDT) Anatomical Region Laterality Modality Abdomen, Kidney Ultrasound 02/08/2018 6:01 PM EDT Impressions 02/08/2018 6:06 PM EDT Persistent numerous non-obstructing intrarenal stones bilaterally. Similar overall burden to the CT in September allowing for difference in modality. No sign of obstruction, infection or tumor today. POS [id number] Narrative 02/08/2018 6:06 PM EDT Compare to [...] of obstruction, infection or tumor today. POS [id number] Alex Romano MD [facility] RE[facility] Final Result documented in this encounter Visit Diagnoses Diagnosis Calculus, kidney Calculus of kidney Calculus, kidney Calculus of kidney documented in this encounter Additional Health Concerns Infection Onset Date Last Indicated Resolved Time CoV-Risk 08/13/2020 08/13/2020 08/23/2020 1:25 AM EST CoV-Risk Comment:Per Ambulatory Triage Form 03/16/2024 03/16/202403/27 1:22 AM EDT documented as of this encounter Care Teams Optometric Aide Relationship Specialty Start Date End Date Elizabeth Samaniego MD 234 [facility] 7 [place] [address] [email or web address] PCP - General 07/02/17 Petra Murillo PA [facility] [place] [address] Historical LMR Provider 05/23/17 2 Alissa Young PUMP SERVICER [address] [place] [address] Historical LMR Provider 05/23/17 2 Zeina Rueda DO [address] [place] [address] 7 [place] [address] [email or web address] Historical LMR Provider 05/23/17 Rainer Mendez MD [address] [place] [address] [email or web address] Historical LMR Provider 05/23/17 Jorge Hale DO [address] [place] [address] Orthopedics & Sports Medicine, [facility] [place], [place] [id number] Historical LMR Provider 05/23/17 08/10/21 Daniella Villeda FNP [address] [place] [address], [address] [place] [address] [email or web address] Historical LMR Provider 05/23/17 Louis Johnson MD [address] [place] [address], 2nd [place] [address] Historical LMR Provider 05/23/17 08/10/21 Maya Wilson MD [address] [place] [address] 7 [place] [address] [email or web address] Historical LMR Provider 05/23/17 Dexter Lamb MD [address] [place] [address] 7 [place] [phone] Historical LMR Provider 05/23/17 2 Elizabeth Samaniego MD [address] [place] [address] 7 [place] [address] [email or web address] Historical LMR Provider 05/23/17 Pilo Haro MD [address] [place], [place] [address] [place] [phone] [email or web address] Historical LMR Provider 05/23/17 08/10/21 Elizabeth Samaniego MD [address] [place] [address] 7 [place] [address] [email or web address] Insurance Assigned Provider 11/07/2302/06/24 documented as of this encounter Additional Source Comments The information contained in this document represents components of the legal health record. It is not the complete legal health record.[facility]
--- OUTSIDE RECORDS SUMMARY | 2025-04-27 20:06 | XMS_ITS | Encounter Summary ---
Author Organization [facility] Address 399 [facility] [address] [place] [address] Phone Care Team Providers Care Air Brake Man Name Role Phone Petra Murillo Unavailable [phone] Alissa Young NP Unavailable [phone] Zeina Rueda DO Unavailable Rainer Mendez MD Unavailable Jorge Hale DO Unavailable Daniella VilledaP Unavailable Louis Johnson MD Unavailable Maya Wilson MD Unavailable [phone] Dexter Lamb MD Unavailable [phone] Elizabeth Samaniego MD Unavailable Pilo Haro MD Unavailable [phone] Elizabeth Samaniego MD Primary Care Provider Elizabeth Samaniego MD Unavailable Encounter Details Date Type Department Care Team (Latest Contact Info) Description 09/25/2017 Transcribe Orders [facility] 30 [place], [place] [phone] Doris Sanchez PA 10 [place] [address] Routine general medical examination at a health [...] Description 06/06/2025 7:30 AM EST Office Visit [facility] Rehabilitation Services 8 [place] [address] Elizabeth Samaniego MD [address] [place] [address], [address] [place] [address] [email or web address] Eloisa Burgos, PT 8 [place] [address] 06/20/2025 12:15 PM EST Evaluation [facility] Audiology [address] [address] Heide Fried AuD [address] [place] [address] [email or web address] 06/20/2025 1:00 PM EST Office Visit [facility] Otology [address] [address] Joe Alonzo MD [address] [place] [address] [email or web address] documented as of this encounter Results * PT-INR (09/25/2017 12:55 PM EST) PT 11.5 10.2 - 12.9 sec [facility] INR 1.0 0.9 - 1.1 [facility] Comment:Therapeutic range fo r oral Vitamin K antagonists: 2.0-3.5 Blood 09/25/2017 12:5 5 PM EST 09/25/2017 12:58 PM EST Doris LAST LAB BLOOD ORDERABLES Final Result Performing Organization Address [facility]/ZIP Co de Phone Number [address] [address] * Ferritin (09/25/2017 12:55 PM EST) Pathologist [facility] FERRITIN 67 30 - 400 ug/L [facility] Blood 09/25/2017 12:5 5 PM EST 09/25/2017 12:58 PM EST Doris LAST LAB BLOOD ORDERABLES Final Result Performing Organization Address [facility] Co de Phone Number [address] [address] * C-Reactive Protein (09/25/2017 12:55 PM EST) Pathologist [facility] C REACTIVE PROTEIN 0.1 0 - 0.5 mg/L [facility] Blood 09/25/2017 12:5 5 PM EST 09/25/2017 12:58 PM EST Doris LAST LAB BLOOD ORDERABLES Final Result Performing Organization Address [facility] Co de Phone Number [address] [address] * (ABNORMAL) CBC and differential (09/25/2017 12:55 PM EST) Pathologist [facility] WBC 4.74 3.40 - 11.20 K/uL [facility] RBC 4.74 4.50 - 5.50 M/uL [facility] HGB 13.7 13.0 - 17.0 g/dL [facility] HCT 40.9 40.0 - 51.0 % [facility] PLT 235 130 - 400 K/uL [facility] MCV 86.3 79.0 - 98.0 fL [facility] MCH 28.9 27.0 - 34.8 pg [facility] MCHC 33.5 31.5 - 36.0 g/dL [facility] RDW 12.6 10.8 - 14.6 % [facility] MPV 9.5 9.4 - 12.4 fl [facility] NRBC 0.00 /100 WBCs [facility] ABSOLUTE NRBC 0.00 K/uL [facility] DIFF METHOD Auto [facility] NEUTS 45.2(L) 45.30 - 77.70 % [facility] LYMPHS 37.8 12.30 - 39.70 % [facility] MONOS 12.2 4.10 - 12.80 % [facility] EOS 4.0 0 - 7.2 % [facility] BASOS 0.6 0 - 2.80 % [facility] Granulocytes, immature (%) 0.2 0.0 - 0.9 % [facility] ABSOLUTE NEUTS 2.14 1.40 - 7.70 K/uL [facility] ABSOLUTE LYMPHS 1.79 0.60 - 3.20 K/uL [facility] ABSOLUTE MONOS 0.58 0.11 - 0.59 K/uL [facility] ABSOLUTE EOS 0.19 0.01 - 0.50 K/uL [facility] ABSOLUTE BASOS 0.03 0.00 - 0.08 K/uL [facility] Granulocytes, immature 0.01 0.00 - 0.05 K/uL [facility] Blood 09/25/2017 12:5 5 PM EST 09/25/2017 12:58 PM EST us Doris LAST LAB BLOOD ORDERABLES Final Result Performing Organization Address City/State/[facility] Co de Phone Number [facility] 30 [place] [address] documented in this encounter Visit Diagnoses Diagnosis Routine general medical examination at a health care facility- Primary documented in this encounter Additional Health Concerns Infection Onset Date Last Indicated Resolved Time CoV-Risk 08/13/2020 08/13/2020 08/23/2020 1:25 AM EST CoV-Risk Comment:Per Ambulatory Triage Form 03/16/2024 03/16/202403/27 1:22 AM EDT documented as of this encounter Care Teams Air Brake Man Relationship Specialty Start Date End Date Elizabeth Samaniego MD [address] [place] [address] 7 [place] [address] [email or web address] PCP - General 07/02/17 Petra Murillo PA [facility] [place] [address] Historical LMR Provider 05/23/17 2 Alissa Yonug NP 1 [place] [address] Historical LMR Provider 05/23/17 2 Zeina Rueda DO [address] [place] [address] [email or web address] Historical LMR Provider 05/23/17 Rainer Mendez MD [address] [place] [address] [email or web address] Historical LMR Provider 05/23/17 Jorge Hale DO [address] [place] [address] Orthopedics & Sports Medicine, [facility] [place] [address] [email or web address] Historical LMR Provider 05/23/17 08/10/21 Daniella Villeda FNP [address] [place] [address] [email or web address] Historical LMR Provider 05/23/17 Louis Johnson MD [address] [facility], 2nd [place] [address] Historical LMR Provider 05/23/17 08/10/21 Maya [place] MD [address] [place] [address] 7 [place] [address] [email or web address] Historical LMR Provider 05/23/17 Dexter Lamb MD [address] [place] [address] 7 [place] [phone] Historical LMR Provider 05/23/17 2 Elizabeth Samaniego MD [address] [place] [address] 7 [place] [address] [email or web address] Historical LMR Provider 05/23/17 Pilo Haro MD [address] [place], [place] [address] [place] [phone] [email or web address] Historical LMR Provider 05/23/17 08/10/21 Elizabeth Samaniego MD [address] [place] [address] 7 [place] [address] [email or web address] Insurance Assigned Provider 11/07/2302/06/24 documented as of this encounter Additional Source Comments The information contained in this document represents components of the legal health record. It is not the complete legal health record.[facility]
--- OUTSIDE RECORDS SUMMARY | 2025-04-27 20:06 | XMS_ITS | Encounter Summary ---
Author Organization [facility] Address [address] [address] Phone Care Team Providers Care Fiscal Agent Name Role Phone Petra Murillo Unavailable Alissa Young EXERCISE PHYSIOLOGY PROFESSOR Unavailable Zeina Rueda DO Unavailable Rainer Mendez MD Unavailable Jorge Hale DO Unavailable Daniella VilledaP Unavailable Louis Jonhson MD Unavailable Maya [place] MD Unavailable Dexter Lamb MD Unavailable Elizabeth Samaniego MD Unavailable [phone] Plio Haro MD Unavailable Elizabeth Samaniego MD Primary Care Provider Elizabeth Samaniego MD Unavailable Encounter Details Date Type Department Care Team (Late st Contact Info) Description 02/04/2018 Ancillary Orders Virtual Department 30 [place] [address] Juany Mosqueda PA Kidney stone; Urinary frequency [...] Description 06/06/2025 7:30 AM EST Office Visit [facility] Rehabilitation Services 8 [place] [address] Elizabeth Samaniego MD [address] [place] [address] 7 [place] [address] [email or web address] Eloisa Burgos, PT 8 [place] [address] [email or web address] 06/20/2025 12:15 PM EST Evaluation [facility] Audiology [address] [address] Heide Fried AuD [address] [place] [address] [email or web address] 06/20/2025 1:00 PM EST Office Visit [facility] Otology [address] [address] Joe Alonzo MD 243 [place] [address] [email or web address] documented as of this encounter Visit Diagnoses Diagnosis Kidney stone Calculus of kidney Urinary frequency documented in this encounter Additional Health Concerns Infection Onset Date Last Indicated Resolved Time CoV-Risk 08/13/2020 08/13/2020 08/23/2020 1:25 AM EST CoV-Risk Comment:Per Ambulatory Triage Form 03/16/2024 03/16/202403/27 1:22 AM EDT documented as of this encounter Care Teams Fiscal Agent Relationship Specialty Start Date End Date Elizabeth Samaniego MD [address] [place] [address] [email or web address] PCP - General 07/02/17 Petra Murillo PA [facility] [place] [address] Historical LMR Provider 05/23/17 2 Alissa Young NP 1 [place] [address] Historical LMR Provider 05/23/17 2 Zeina Rueda DO [address] [place] [address] [email or web address] Historical LMR Provider 05/23/17 Rainer Mendez MD [address] [place] [address] [email or web address] Historical LMR Provider 05/23/17 Jorge Hale DO [address] [place] [address] Orthopedics & Sports Medicine, [facility] [place] [address] Historical LMR Provider 05/23/17 08/10/21 Daniella Villeda FNP [address] [place] [address] [email or web address] Historical LMR Provider 05/23/17 Louis Johnson MD 22 [facility], 2nd [place] [address] Historical LMR Provider 05/23/17 08/10/21 Maya [place] MD 234 [facility] 7 [place] [address] [email or web address] Historical LMR Provider 05/23/17 Dexter Lamb MD 236 [facility] 7 [place] [address] Historical LMR Provider 05/23/17 2 Elizabeth Samaniego MD [address] [place] [address] 7 [place] [address] [email or web address] Historical LMR Provider 05/23/17 Pilo Haro MD [address] [place], [place] [address] [place] [phone] [email or web address] Historical LMR Provider 05/23/17 08/10/21 Elizabeth Samaniego MD [address] [place] [address] 7 [place] [address] [email or web address] Insurance Assigned Provider 11/07/2302/06/24 documented as of this encounter Additional Source Comments The information contained in this document represents components of the legal health record. It is not the complete legal health record.[facility]
--- OUTSIDE RECORDS SUMMARY | 2025-04-27 20:06 | XMS_ITS | Encounter Summary ---
Author Organization [facility] Address 399 [facility] [address] [place] [address] Phone Care Team Providers Care Coverstitch Machine Operator Name Role Phone Zeina Rueda Carlos NGUYEN Unavailable [phone] Rainer Mendez MD Unavailable Daniella VilledaP Unavailable Maya [place] MD Unavailable Elizabeth Samaniego MD Unavailable Elizabeth Samaniego MD Primary Care Provider Elizabeth Samaniego MD Unavailable [phone] Encounter Details Date Type Department Care Team (Late st Contact Info) Description 03/14/2022 Procedure Pass [facility], Ct Scan - [address] [address] Social History Tobacco Use Types Packs/Day Years [...] high school, GED, job training, learning the Wallisian language, technical skills, or developing parenting skills)? [...] Description 06/06/2025 7:30 AM EST Office Visit [facility] Rehabilitation Services 8 [place] [address] Elizabeth Samaniego MD [address] [place] [address], [address] [place] [address] Eloisa Burgos, PT 8 [place] [address] 06/20/2025 12:15 PM EST Evaluation [facility] Audiology [facility] [address] [address] Heide Fried AuD 243 [place] [address] [email or web address] 06/20/2025 1:00 PM EST Office Visit [facility] Otology [place] [address] [place] [address] Joe Alonzo MD 243 [place] [address] [email or web address] documented as of this encounter Visit Diagnoses Not on filedocumented in this encounter Additional Health Concerns Infection Onset Date Last Indicated Resolved Time CoV-Risk Comment:Per Ambulatory Triage Form 03/16/2024 03/16/202403/27 1:22 AM EDT Assessment Noted Time PHQ-2 Depression Total Score: 1 12/07/19 9:15 AM EDT documented as of this encounter Care Teams Coverstitch Machine Operator Relationship Specialty Start Date End Date Elizabeth Samaniego MD [address] [place] [address] [email or web address] PCP - General 07/02/17 Zeina Rueda DO [address] [place] [address] [email or web address] Historical LMR Provider 05/23/17 Rainer Mendez MD [address] [place] [address] [email or web address] Historical LMR Provider 05/23/17 Daniella Villeda FNP [address] [place] [address] [email or web address] Historical LMR Provider 05/23/17 Maya [place] MD [address] [place] [address] [email or web address] Historical LMR Provider 05/23/17 Elizabeth Samaniego MD [address] [place] [address] 7 [place] [address] [email or web address] Historical LMR Provider 05/23/17 Elizabeth Samaniego MD [address] [place] [address] [address] [place] [address] [email or web address] Insurance Assigned Provider 11/07/2302/06/24 documented as of this encounter Additional Source Comments The information contained in this document represents components of the legal health record. It is not the complete legal health record.[facility]
--- OUTSIDE RECORDS SUMMARY | 2025-04-27 20:06 | XMS_ITS | Encounter Summary ---
Author Organization [facility] Address 399 [facility] [address] [place] [address] Phone Care Team Providers Care [employer] Partnership Rep Name Role Phone Zeina Rueda Carlos NGUYEN Unavailable [phone] Rainer Mendez MD Unavailable Daniella VilledaP Unavailable [phone] Maya [place] MD Unavailable Elizabeth Samaniego MD Unavailable [phone] Elizabeth Samaniego MD Primary Care Provider Elizabeth Samaniego MD Unavailable Encounter Details Date Type Department Care Team (Late st Contact Info) Description 06/11/2022 Procedure Pass [facility], Ct Scan - [address] [address] Social History Tobacco Use Types Packs/Day Years [...] high school, GED, job training, learning the Marshallese language, technical skills, or developing parenting skills)? [...] 06/11/2022 10:25 PM Cate Escobar RN * [place] Suicide Severity Rating Scale (Screener/Recent Self-Report) Question Answer Date of Assessment Author 1. Wish to be (Past 1 Month) No 06/11/2022 10:25 PM Cate Sanford RN 2. Non-Specific Active Suici ben Thoughts (Past 1 Month) No 06/11/2022 10:25 PM Saray Sanford cia, RN 6. Suicidal Behavior (Lifetime) No 10:25 PM Cate Sanford RN documented as of this encounter Plan of Treatment Upcoming Encounters Date Type Department Care Team (Late st Contact Info) Description 06/06/2025 7:30 AM EST Office Visit [facility] Services [address] [place] [address] Elizabeth Samaniego MD [address] [place] [address], [address] [place] [address] [email or web address] Eloisa Burgos, PT 8 [place] [address] 06/20/2025 12:15 PM EST Evaluation [facility] Audiology [address] [address] Heide Fried AuD 243 [place] [address] [email or web address] 06/20/2025 1:00 PM EST Office Visit [facility] Otology [address] [address] Joe Alonzo MD [address] [place] [address] [email or web address] documented as of this encounter Visit Diagnoses Not on filedocumented in this encounter Additional Health Concerns Infection Onset Date Last Indicated Resolved Time CoV-Risk Comment:Per Ambulatory Triage Form 03/16/2024 03/16/202403/27 1:22 AM EDT Assessment Noted Time PHQ-2 Depression Total Score: 1 12/07/19 22 9:15 AM EDT documented as of this encounter Care Teams University Partnership Rep Relationship Specialty Start Date End Date Elizabeth Samaniego MD [address] [place] [address] [email or web address] PCP - General 07/02/17 Zeina Rueda DO [address] [place] [address] [email or web address] Historical LMR Provider 05/23/17 Rainer Mendez MD [address] [place] [address] [email or web address] Historical LMR Provider 05/23/17 Daniella Villeda FNP [address] [place] [address] 7 [place] [address] Historical LMR Provider 05/23/17 Maya [place] MD [address] [place] [address] 7 [place] [address] Historical LMR Provider 05/23/17 Elizabeth Samaniego MD [address] [place] [address] 7 [place] [address] Historical LMR Provider 05/23/17 Elizbaeth Samaniego MD [address] [place] [address] 7 [place] [address] [email or web address] Insurance Assigned Provider 11/07/2302/06/24 documented as of this encounter Additional Source Comments The information contained in this document represents components of the legal health record. It is not the complete legal health record.[facility]
--- OUTSIDE RECORDS SUMMARY | 2025-04-27 20:06 | XMS_ITS | Encounter Summary ---
Author Organization [facility] Address [address] [address] Phone Care Team Providers Care Layout Mechanic Name Role Phone Petra Murillo Unavailable [phone] Alissa Young AUTO RADIATOR MECHANIC Unavailable Zeina Rueda DO Unavailable Rainer Mendez MD Unavailable Jorge Hale DO Unavailable Daniella Villeda PICKER TENDER Unavailable Louis Johnson MD Unavailable Maya Wilson MD Unavailable Dexter Lamb MD Unavailable Elizabeth Samaniego MD Unavailable [phone] Pilo Haro MD Unavailable Elizabeth Samaniego MD Primary Care Provider Elizabeth Samaniego MD Unavailable [phone] Encounter Details Date Type Department Care Team (Late st Contact Info) Description 02/05/2018 Ancillary Orders Virtual Department 30 [place], [place] [id number] Alex Romano MD 3640 [facility], [address] [place] [address] [email or web address] Calculus of kidney; Benign prostatic hyperplasia with [...] Description 06/06/2025 7:30 AM EST Office Visit [facility] 8 [place] [address] Elizabeth Samaniego MD [address] [place] [address] 7 [place] [address] [email or web address] Eloisa Burgos, PT 8 [place] [address] 06/20/2025 12:15 PM EST Evaluation [facility] Audiology [address] [address] Heide Fried AuD [address] [place] [address] [email or web address] 06/20/2025 1:00 PM EST Office Visit [facility] Otology [address] [address] Joe Alonzo MD [address] [place] [id number] [email or web address] documented as of this encounter Results * XR ABDOMEN 1 VIEW (02/08/2018 5:38 PM EDT) Anatomical Region Laterality Modality Abdomen Radiographic Jen ging 02/08/2018 7:04 PM EDT Impressions 02/08/2018 7:07 PM EDT Numerous bilateral intrarenal stones POS [id number] Narrative 02/08/2018 7:07 PM EDT AP abdomen [...] unremarkable IMPRESSION: Numerous bilateral intrarenal stones POS [id number] Alex Romano MD IMG XR ABDOMEN Final [...] documented as of this encounter Care Teams Layout Mechanic Relationship Specialty Start Date End Date Elizabeth Samaniego MD [address] [place] [address] 7 [place] [address] [email or web address] PCP - General 07/02/17 Petra Murillo PA [facility] [place] [address] Historical LMR Provider 05/23/17 2 Alissa Young AUTO RADIATOR MECHANIC [address] [place] [address] Historical LMR Provider 05/23/17 2 Zeina Rueda DO [address] [place] [address] Historical LMR Provider 05/23/17 Rainer Mendez MD [address] [place] [address] [email or web address] Historical LMR Provider 05/23/17 Jorge Hale DO [address] [place] [address] Orthopedics [facility] Sports Medicine, [place] [address] Historical LMR Provider 05/23/17 08/10/21 Daniella Villeda FNP [address] [place] [address] 7 [place] [address] [email or web address] Historical LMR Provider 05/23/17 Louis Johnson MD 22 [facility], 2nd [place] [address] Historical LMR Provider 05/23/17 08/10/21 Maya Wilson MD [address] [place] [address] 7 [place] [address] [email or web address] Historical LMR Provider 05/23/17 Dexter Lamb MD [address] [place] [id number] Historical LMR Provider 05/23/17 2 Elizabeth Samaniego MD [address] [place] [address] 7 [place] [address] [email or web address] Historical LMR Provider 05/23/17 Pilo Haro MD [address] [place], [place] [address] [place] [address] [email or web address] Historical LMR Provider 05/23/17 08/10/21 Elizabeth Samaniego MD [address] [place] [address] 7 [place] [address] [email or web address] Insurance Assigned Provider 11/07/2302/06/24 documented as of this encounter Additional Source Comments The information contained in this document represents components of the legal health record. It is not the complete legal health record.[facility]
--- OUTSIDE RECORDS SUMMARY | 2025-04-27 20:06 | XMS_ITS | Encounter Summary ---
Author Organization [facility] Address 399 [facility] [address] [place] [address] Phone Care Team Providers Care Build Master Name Role Phone Petra Murillo Unavailable [phone] Alissa Young CLINICAL SALES CONSULTANT Unavailable Zeina Rueda DO Unavailable Rainer Mendez MD Unavailable Jorge Hale DO Unavailable Daniella Villeda MATTRESS RENOVATOR Unavailable Louis Johnson MD Unavailable [phone] Maya Wilson MD Unavailable [phone] Dexter Lamb MD Unavailable Elizabeth Samaniego MD Unavailable [phone] Pilo Haro MD Unavailable Elizabeth Samaniego MD Primary Care Provider Elizabeth Samaniego MD Unavailable [phone] Encounter Details Date Type Department Care Team (Late st Contact Info) Description 09/22/2017 Procedure Pass [facility] Ct Scan - [address] [address] Social History Tobacco Use Types Packs/Day Years [...] Description 06/06/2025 7:30 AM EST Office Visit [facility] 8 [place] [address] Elizabeth Samaniego MD [address] [place] [address] 7 [place] [address] [email or web address] Eloisa Burgos, PT 8 [place] [address] 06/20/2025 12:15 PM EST Evaluation [facility] Audiology [address] [address] Heide Fried AuD [address] [place] [address] [email or web address] 06/20/2025 1:00 PM EST Office Visit [facility] Otology [address] [address] Joe Alonzo MD [address] [place] [address] [email or web address] documented as of this encounter Visit Diagnoses Not on filedocumented in this encounter Additional Health Concerns Infection Onset Date Last Indicated Resolved Time CoV-Risk 08/13/2020 08/13/2020 08/23/2020 1:25 AM EST CoV-Risk Comment:Per Ambulatory Triage Form 03/16/2024 03/16/202403/27 1:22 AM EDT documented as of this encounter Care Teams Build Master Relationship Specialty Start Date End Date Elizabeth Samaniego MD [address] [place] [address] [email or web address] PCP - General 07/02/17 Petra Murillo PA [facility] [place] [address] Historical LMR Provider 05/23/17 2 Alissa Young NP [address] [place] [address] Historical LMR Provider 05/23/17 2 Zeina Rueda DO [address] [place] [address] [email or web address] Historical LMR Provider 05/23/17 Rainer Mendez MD [address] [place] [address] [email or web address] Historical LMR Provider 05/23/17 Jorge Hale DO [address] [place] [address] Orthopedics & Sports Medicine, [place] [address] Historical LMR Provider 05/23/17 08/10/21 Daniella Villeda FNP [address] [place] [address] [email or web address] Historical LMR Provider 05/23/17 Louis Johnson MD [address] [place] [address], 2nd [place] [address] [email or web address] Historical LMR Provider 05/23/17 08/10/21 Maya Wilson MD [address] [place] [address] [address] [place] [address] [email or web address] Historical LMR Provider 05/23/17 Dexter Lamb MD [address] [place] [address] 7 [place] [phone] Historical LMR Provider 05/23/17 2 Elizabeth Samaniego MD [address] [place] [address] 7 [place] [address] [email or web address] Historical LMR Provider 05/23/17 Pilo Haro MD [address] [place], [place] [address] [place] [phone] [email or web address] Historical LMR Provider 05/23/17 08/10/21 Elizabeth Samaniego MD [address] [place] [address] 7 [place] [address] [email or web address] Insurance Assigned Provider 11/07/2302/06/24 documented as of this encounter Additional Source Comments The information contained in this document represents components of the legal health record. It is not the complete legal health record.[facility]
--- OUTSIDE RECORDS SUMMARY | 2025-04-27 20:06 | XMS_ITS | Encounter Summary ---
Author Organization [facility] Address [address] [address] Phone Care Team Providers Care Photoengraving Finisher Name Role Phone Petra Murillo Unavailable [phone] Alissa Young NP Unavailable [phone] Zeina Rueda DO Unavailable Rainer Mendez MD Unavailable Jorge Hale DO Unavailable Daniella VilledaP Unavailable Louis Johnson MD Unavailable Maya Wilson MD Unavailable Dexter Lamb MD Unavailable Elizabeth Samaniego MD Unavailable Pilo Haro MD Unavailable [phone] Elizabeth Samaniego MD Primary Care Provider Elizabeth Samaniego MD Unavailable [phone] Reason for Referral * MRI/CAT Scan - Closed Specialty Diagnoses / Procedures Referred By Contjose m t Referred To Contact Radiology Diagnoses Acute lower GI hemorrhage Procedures CT Abdomen/Pelvis Doris Sanchez PA Phone: tel: fax: Referral ID Status Reason Start Date Expiration Date Visits Re quested Visits Authorized [id number] Closed 09/22/2017 11/21/2017 1 1 Encounter Details Date Type Department Care Team (Late st Contact Info) Description 09/22/2017 Ancillary Orders Virtual Department 30 [place] [address] Doris Sanchez PA 10 [place] [address] Acute lower GI hemorrhage Social History Tobacco [...] 06/06/2025 7:30 AM EST Office Visit [facility] 8 [place] [address] Elizabeth Samaniego MD [address] [place] [address], [facility] 7 [place] [address] Eloisa Burgos, PT 8 [place] [address] 06/20/2025 12:15 PM EST Evaluation [facility] Audiology [facility] [address] [address] Heide Fried AuD 243 [place] [address] [email or web address] 06/20/2025 1:00 PM EST Office Visit [facility] Otology [address] [place] [address] [facility] 2nd [place] [address] Joe Alonzo MD [address] [place] [address] [email or web address] documented as of this encounter [...] documented as of this encounter Care Teams Photoengraving Finisher Relationship Specialty Start Date End Date Elizabeth Samaniego MD [address] [place] [address] [email or web address] PCP - General 07/02/17 Petra Murillo PA [facility] [place] [address] Historical LMR Provider 05/23/17 2 Alissa Young NP [address] [place] [address] Historical LMR Provider 05/23/17 2 Zeina Rueda DO [address] [place] [address] Historical LMR Provider 05/23/17 Rainer Mendez MD [address] [place] [address] [email or web address] Historical LMR Provider 05/23/17 Jorge Hale DO [address] [place] [address] Orthopedics & Sports Medicine, [facility] [place] [address] Historical LMR Provider 05/23/17 08/10/21 Daniella Villeda FNP [address] [place] [address] 7 [place] [address] Historical LMR Provider 05/23/17 Louis Johnson MD [address] [place] [address], 2nd [place] [address] Historical LMR Provider 05/23/17 08/10/21 Maya Wilson MD [address] [place] [address] 7 [place] [address] Historical LMR Provider 05/23/17 Dexter Lamb MD [address] [place] [address] 7 [place] [phone] Historical LMR Provider 05/23/17 Elizabeth Estrada MD [address] [place] [address] 7 [place] [address] Historical LMR Provider 05/23/17 Pilo Haro MD [address] [place] [address] [address] [place] [phone] [email or web address] Historical LMR Provider 05/23/17 08/10/21 Elizabeth Samaniego MD [address] [place] [address] 7 [place] [address] [email or web address] Insurance Assigned Provider 11/07/2302/06/24 documented as of this encounter Additional Source Comments The information contained in this document represents components of the legal health record. It is not the complete legal health record.[facility]
--- OUTSIDE RECORDS SUMMARY | 2025-04-27 20:06 | XMS_ITS | Encounter Summary ---
Author Organization [facility] Address 399 [facility] [address] [place] [address] Phone Care Team Providers Care Road Grader Operator Name Role Phone Petra Murillo Unavailable [phone] Alissa Young NP Unavailable Zeina Rueda DO Unavailable Rainer Mendez MD Unavailable Jorge Hale DO Unavailable Daniella VilledaP Unavailable Louis Johnson MD Unavailable [phone] Maya Wilson MD Unavailable Dexter Lamb MD Unavailable [phone] Elizabeth Samaniego MD Unavailable Pilo Haro MD Unavailable Elizabeth Samaniego MD Primary Care Provider Elizabeth Samaniego MD Unavailable [phone] Encounter Details Date Type Department Care Team (Late st Contact Info) Description 08/22/2019 Ancillary Orders [facility], X-Ray - [address] [address] Callie Alvarado, CLINICAL TRIALS MANAGER [address] [place] [address] [email or web address] Left shoulder pain, unspecified chronicity Social History [...] [facility] 8 [place] [address] Elizabeth Samaniego MD [address] [place] [address] 7 [place] [address] [email or web address] Eloisa Burgos, PT 8 [place] [address] 06/20/2025 12:15 PM EST Evaluation [facility] Audiology [address] [address] Heide Fried AuD [address] [place] [address] [email or web address] 06/20/2025 1:00 PM EST Office Visit [facility] Otology [address] [address] Joe Alonzo MD [address] [place] [address] [email or web address] documented as of this encounter Results [...] joint. POS - [id number] us Callie Alvarado CLINICAL TRIALS MANAGER IMG XR UPPER EXTREMITY Final Res ult documented in this encounter Visit Diagnoses Diagnosis Left shoulder pain, unspecified chronicity Left shoulder pain, unspecified chronicity documented in this encounter Additional Health Concerns Infection Onset Date Last Indicated Resolved Time CoV-Risk 08/13/2020 08/13/2020 08/23/2020 1:25 AM EST CoV-Risk Comment:Per Ambulatory Triage Form 03/16/2024 03/16/202403/27 1:22 AM EDT documented as of this encounter Care Teams Road Grader Operator Relationship Specialty Start Date End Date Elizabeth Samaniego MD [address] [place] [address], [address] [place] [address] PCP - General 07/02/17 Petra Murillo PA [facility] [place] [address] Historical LMR Provider 05/23/17 2 Alissa Young NP 1 [place] [address] Historical LMR Provider 05/23/17 2 Zeina Rueda DO [address] [place] [address] 7 [place] [address] [email or web address] Historical LMR Provider 05/23/17 Rainer Mendez MD [address] [place] [address] [email or web address] Historical LMR Provider 05/23/17 Jorge Hale DO [address] [place] [address] Orthopedics & Sports Medicine, [place] [address] [email or web address] Historical LMR Provider 05/23/17 08/10/21 Daniella Villeda FNP [address] [place] [address] 7 [place] [address] [email or web address] Historical LMR Provider 05/23/17 Louis Johnson MD [address] [place] [address] Historical LMR Provider 05/23/17 08/10/21 Maya Wilson MD [address] [place] [address] 7 [facility] [place] [address] [email or web address] Historical LMR Provider 05/23/17 Dexter Lamb MD [address] [place] [address] 7 [place] [address] Historical LMR Provider 05/23/17 2 Elizabeth Samaniego MD [address] [place] [address] 7 [place] [address] [email or web address] Historical LMR Provider 05/23/17 Pilo Haro MD [address] [place], [place] [address] [place] [address] [email or web address] Historical LMR Provider 05/23/17 08/10/21 Elizabeth Samaniego MD [address] [place] [address] 7 [place] [address] [email or web address] Insurance Assigned Provider 11/07/2302/06/24 documented as of this encounter Additional Source Comments The information contained in this document represents components of the legal health record. It is not the complete legal health record.[facility]
--- OUTSIDE RECORDS SUMMARY | 2025-04-27 20:07 | XMS_ITS | Clinical Summary ---
Author Organization [facility] Address [address] [address] Phone Care Team Providers Care Rope Silica Machine Operator Name Role Phone Zeina Rueda Carlos NGUYEN Unavailable [phone] Rainer Mendez MD Unavailable Daniella Villeda PRODUCTION PLANNING MANAGER Unavailable Maya Wilson MD Unavailable [phone] Elizabeth Samaniego MD Unavailable Elizabeth Samaniego MD Primary Care Provider [phone] Allergies No known active allergies Medications omeprazole (PRILOSEC) 20 MG tablet Take 20 mg by mouth daily. Active oxybutynin (DITROPAN-XL) 10 MG 24 hr tabletIndications: Medication refill TAKE 1 & 1/2 TABLETS BY MOUTH ONCE DAILY 135 tablet 2 3 Active buPROPion (WELLBUTRIN XL) 300 MG ER 24 hr tabletIndications: Generalized anxiety disorder TAKE 1 TABLET (300 MG TOTAL) BY MOUTH EVERY MORNING. 90 tablet 3 4 Active propranoloL (INDERAL) 10 MG immediate release tabletIndications: Generalized anxiety disorder Take 1 tablet (10 mg total) by mouth nightly at bedtime as needed (can use 2 pills at once if needed for anxiety). 10 tablet 1 5 Active betamethasone dipropionate 0.05 % ointmentIndication s:Rash and other nonspecific skin eruption Apply topically 2 (two) times a day. Rash on leg. Use for 10 days at a time. 60 g 1 5 Active alfuzosin (UROXATRAL) 10 mg 24 hr tabletIndications: Benign prostatic hyperplasia with urinary frequency Take 1 tablet (10 mg total) by mouth daily. 90 tablet 3 5 Active sertraline (ZOLOFT) 100 MG tabletIndications: Generalized anxiety disorder Take 1 tablet (100 mg total) by mouth daily. 90 tablet 1 5 Active clonazePAM (KLONOPIN) 0.5 MG tabletIndications: Anxiety state Take 1 tablet (0.5 mg total) by mouth 2 (two) times a day as needed for anxiety. 15 tablet 1 5 Active rosuvastatin (CRESTOR) 10 MG tabletIndications: Mixed hyperlipidemia Take 1 tablet (10 mg total) by mouth daily. 90 tablet 1 5 Active gabapentin (NEURONTIN) 300 MG capsuleIndications :Medication refill TAKE 1 CAPSULE BY MOUTH IN THE MORNING, THEN 1 CAPSULE AT NOON, AND 3 CAPSULES AT NIGHT. 450 capsule 5 Active Active Problems Problem Noted Date Diagnosed Date [...] do psa and meds His dad had NH so think about stress test of CAC [...] shows L5/S1 nerve root stenosis. Injections with [place] [facility] and sports were not helpful. We will refer him to [facility] pain management, and try physical therapy. Benign [...] needing replacement and he is seeing [facility] for this - scheduled 07/2019 but could not do this based on insurance He now needs this at [facility] but this has been postponed due to [...] I gave guidance regarding rest, fluids and jkko-[id number] medication as needed. I informed him that [...] issues or concerns. He understands and agrees. residential current use of non -steroidal anti-inflammatories (NSAID) [...] Encounters Date Type Department Care Team Description 04/25/2025 9:00 AM EDT Office Visit [address] [place] [address] Elizabeth Samaniego MD Yount, Elizabeth B, PT Lumbar back pain with radiculopathy affecting left lower extremity (Primary Dx) 04/18/2025 1:30 PM EDT Office Visit [address] [place] [address] Elizabeth Samaniego MD Yount, Elizabeth B, PT Lumbar back pain with radiculopathy affecting left lower extremity (Primary Dx) 03/28/2025 10:30 AM EDT Office Visit [address] [place] [address] Elizabeth Samaniego MD Yount, Elizabeth B, PT Lumbar back pain with radiculopathy affecting left lower extremity (Primary Dx) 03/21/2025 1:30 PM EDT Office Visit [address] [place] [address] Elizabeth Samaniego MD Yount, Elizabeth B, PT Lumbar back pain with radiculopathy affecting left lower extremity (Primary Dx) 03/17/[address] [address] Ant Mcmahon, DO Medication Refill 03/14/2025 1:30 PM EDT Office Visit [address] [place] [address] Elizabeth Samaniego MD Yount, Elizabeth B, PT Lumbar back pain with radiculopathy affecting left lower extremity (Primary Dx) 03/07/2025 1:30 PM EDT Office Visit [facility] [address] [place] [address] Elizabeth Samaniego MD Yount, Elizabeth B, PT Lumbar back pain with radiculopathy affecting left lower extremity (Primary Dx) 03/03/2025 Telephone [facility] [address] [place] [address] Janneth Whitten LPN CAC results 03/02/2025 Orders Only [address] [address] ProviderJeffrey MD 03/01/2025 Orders Only [address] [address] Provider, MD Jeffrey 02/28/2025 2:15 PM EDT Office Visit [facility] 8 [place] [address] Elizabeth Samaniego MD Yount, Elizabeth B, PT [...] Status Comments Brother Alive Father (Age 61) [place] age 61 Mother Paternal Grandfather Sister 1 [...] your housing situation today? I have brianda york 12/22/2024 How many times have you move [...] Description 06/06/2025 7:30 AM EST Office Visit [facility] 8 [place] [address] Elizabeth Samaniego MD [address] [place] [address], [address] [place] [address] [email or web address] Eloisa Burgos, PT 8 [place] [address] 06/20/2025 12:15 PM EST Evaluation [facility] Audiology [address] [address] Heide Fried, Sebastian [address] [place] [address] [email or web address] 06/20/2025 1:00 PM EST Office Visit [facility] Otology [facility] [address] [address] Joe Alonzo MD [address] [place] [address] [email or web address] Health Maintenance Due Date Last Done [...] MD DOUGHERTY XR SPINE Final Res ult * Outside Cardiology Report Only (03/01/2025 2:04 PM EDT) us Historical Provider CV CARDIAC SERVICES ORDER ALINA Final Result * (ABNORMAL) Lipid panel (12/23/2024 9:19 AM EDT) HDL 53 mg/dL [facility] Comment: Interpretation <40 mg/dL: Low HDL cholesterol (major risk factor for CHD) Greater than or equal to 60 mg/dL: High HDL cholesterol ( negative risk factor for CHD) HDL - cholesterol is affected by a number of factors, e.g. smoking, excerise, hormones, sex and age. CHOLESTEROL 218 0 - 240 mg/dL [facility] TRIGLYCERIDES 99 30 - 160 mg/dL [facility] LDL 145(H) 50 - 129 mg/dL [facility] Comment: LDL levels in terms of risk for coronary heart disease: <100 mg/dL: Optimal 100-129 mg/dL: Near or above optimal 130-159 mg/dL: Borderline high 160-189 mg/dL: High >190 mg/dL: Very High CARDIAC RISK RATIO 4.1 3.4 - 5.0 [facility] Blood 12/23/2024 9:19 AM EDT 12/23/2024 9:25 AM EDT Elizabeth Samaniego MD LAB BLOOD ORDERABLES Final R esult [facility] [address] [place] [address] * COLONOSCOPY FOR RESULT ENTRY ONLY (01/29/2023) us Historical Provider HEALTH MAINTENANCE Final Result from Last 3 Months or Most Recently Relevant to Health Maintenance Insurance [employer] Advance Directives For more information, please contact: [phone] (9AM - 5PM [facility], Thursday-Thursday) Documents on File Type Date Recorded Patient Sales And Marketing Associate Expl anation Advance Directive - Non Epic LMR 02/02/2015 12:00 AM Care Teams Rope Silica Machine Operator Relationship Specialty Start Date End Date Elizabeth Samaniego MD [address] [place] [address] 7 [place] [address] [email or web address] PCP - General 07/02/17 Zeina Rueda DO [address] [place] [address] 7 [place] [address] [email or web address] Historical LMR Provider 05/23/17 Rainer Mendez MD [address] [place] [address] [email or web address] Historical LMR Provider 05/23/17 Daniella Villeda FNP [address] [place] [address], [facility] 7 [place] [address] [email or web address] Historical LMR Provider 05/23/17 Maya Wilson MD [address] [place] [address] 7 [place] [address] [email or web address] Historical LMR Provider 05/23/17 Elizabeth Samaniego MD [address] [place] [address] 7 [place] [address] [email or web address] Historical LMR Provider 05/23/17 Additional Source Comments The information contained in this document represents components of the legal health record. It is not the complete legal health record.[facility]
--- OUTSIDE RECORDS SUMMARY | 2025-04-27 20:07 | XMS_ITS | Clinical Summary ---
Author Organization [facility], Address [address] [address] Phone Care Team Providers Care Painter Maintenance Name Role Phone Elizabeth Samaniego MD Primary [...] this topic Insurance [facility] Care Teams Painter Maintenance Relationship Specialty Start Date End Date Elizabeth Samaniego MD [address] [place] [address], [address] [place] [address] PCP - General Family Medicine 10/29/23
--- OUTSIDE RECORDS SUMMARY | 2025-04-27 20:07 | XMS_ITS | Encounter Summary ---
Author Organization [facility] Address [address] [place] [address] Phone Care Team Providers Care Breaker Machine Operator Name Role Phone Elizabeth Samaniego MD Primary Care Provider Encounter Details Date Type Department Care Team (Late st Contact Info) Description 10/29/2023 Documentation Only [facility], [address] [place] [address] Ne[place]ias [place]var[place], [place] [address] [place] [address] Social History Tobacco Use Types [...] on filedocumented in this encounter Care Teams Breaker Machine Operator Relationship Specialty Start Date End Date Elizabeth Samaniego MD [address] [place] [address], [facility] 7 [place], [place] [id number] PCP - General Family Medicine 10/29/23 documented as of this encounter
--- OUTSIDE RECORDS SUMMARY | 2025-04-27 20:07 | XMS_ITS | Encounter Summary ---
Author Organization [facility] Address [address] [address] Phone Care Team Providers Care Marketing Associate Name Role Phone Petra Murillo Unavailable [phone] Alissa Young CHIEF INVESTIGATOR Unavailable Zeina Rueda DO Unavailable Rainer Mendez MD Unavailable Jorge Hale DO Unavailable Daniella Villeda SHACTOR HELPER Unavailable Louis Johnson MD Unavailable Maya Wilson MD Unavailable Dexter Lamb MD Unavailable Elizabeth Samaniego MD Unavailable Pilo Haro MD Unavailable Elizabeth Samaniego MD Primary Care Provider Elizabeth Samaniego MD Unavailable Encounter Details Date Type Department Care Team (Late st Contact Info) Description 05/07/2018 Procedure Pass [facility], [address] [address] Social History Tobacco Use Types Packs/Day Years [...] Description 06/06/2025 7:30 AM EST Office Visit [facility] 8 [place] [address] Elizabeth Samaniego MD [address] [place] [address] 7 [place] [address] [email or web address] Eloisa Burgos, PT 8 [place] [address] [email or web address] 06/20/2025 12:15 PM EST Evaluation [facility] Audiology [address] [address] Heide Fried AuD [address] [place] [address] [email or web address] 06/20/2025 1:00 PM EST Office Visit [facility] Otology [address] [address] Joe Alonzo MD [address] [place] [address] [email or web address] documented as of this encounter Visit Diagnoses Not on filedocumented in this encounter Additional Health Concerns Infection Onset Date Last Indicated Resolved Time CoV-Risk 08/13/2020 08/13/2020 08/23/2020 1:25 AM EST CoV-Risk Comment:Per Ambulatory Triage Form 03/16/2024 03/16/202403/27 1:22 AM EDT documented as of this encounter Care Teams Marketing Associate Relationship Specialty Start Date End Date Elizabeth Samaniego MD [address] [place] [address] PCP - General 07/02/17 Petra Murillo PA [facility] [place] [address] Historical LMR Provider 05/23/17 2 Alissa Young NP 1 [place] [address] Historical LMR Provider 05/23/17 2 Zeina Rueda DO [address] [place] [address] Historical LMR Provider 05/23/17 Rainer Mendez MD [address] [place] [address] [email or web address] Historical LMR Provider 05/23/17 Jorge Hale DO [address] [place] [address] Orthopedics & Sports Medicine, [facility] [place] [address] Historical LMR Provider 05/23/17 08/10/21 Daniella Villeda FNP [address] [place] [address] Historical LMR Provider 05/23/17 Louis Johnson MD [address] [place] [address] [place] [address] Historical LMR Provider 05/23/17 08/10/21 Maya Wilson MD [address] [place] [address] [address] [place] [address] [email or web address] Historical LMR Provider 05/23/17 Dexter Lamb MD [address] [place] [address] 7 [place] [phone] Historical LMR Provider 05/23/17 2 Elizabeth Samaniego MD [address] [place] [address] 7 [place] [address] [email or web address] Historical LMR Provider 05/23/17 Pilo Haro MD [address] [place], [place] [address] [place] [address] [email or web address] Historical LMR Provider 05/23/17 08/10/21 Elizabeth Samaniego MD [address] [place] [address] 7 [place] [address] [email or web address] Insurance Assigned Provider 11/07/2302/06/24 documented as of this encounter Additional Source Comments The information contained in this document represents components of the legal health record. It is not the complete legal health record.[facility]
--- OUTSIDE RECORDS SUMMARY | 2025-04-27 20:07 | XMS_ITS | Encounter Summary ---
Author Organization [facility] Address 399 [facility] [address] [place] [address] Phone Care Team Providers Care Tongue And Quarter Stitcher Name Role Phone Petra Murillo Unavailable [phone] Alissa Young CHILD SUPPORT OFFICER Unavailable Zeina Rueda DO Unavailable Rainer Mendez MD Unavailable Jorge Hale DO Unavailable Dainella Villeda LEAD MECHANICAL ENGINEER Unavailable Louis Johnson MD Unavailable Maya Wilson MD Unavailable Dexter Lamb MD Unavailable [phone] Elizabeth Samaniego MD Unavailable [phone] Pilo Haro MD Unavailable Elizabeth Samaniego MD Primary Care Provider [phone] Elizabeth Samaniego MD Unavailable [phone] Encounter Details Date Type Department Care Team (Latest Contact Info) Description 02/10/2018 Transcribe Orders [facility] Laboratory [address] 2nd Floor [place], [place] [id number] Nola Najera PA [address] [address] [email or web address] Benign prostatic hyperplasia without lower urinary [...] Description 06/06/2025 7:30 AM EST Office Visit [facility] 8 [place] [address] Elizabeth Samaniego MD [address] [place] [address] 7 [place] [address] [email or web address] Eloisa Burgos, PT 8 [place] [address] 06/20/2025 12:15 PM EST Evaluation [facility] Audiology [address] [address] Heide Fried AuD [address] [place] [address] [email or web address] 06/20/2025 1:00 PM EST Office Visit [facility] Otology [address] [address] Joe Alonzo MD [address] [place] [address] [email or web address] documented as of this encounter Results * PSA (screening) (02/10/2018 9:21 AM EDT) PSA 0.74 0 - 4.00 ng/mL [facility] Blood 02/10/2018 9:21 AM EDT 02/10/2018 9:24 AM EDT Nola LAST LAB BLOOD ORDERABLES Final Result Performing Organization Address City/State/[facility] Co de Phone Number [facility] [address] [place] [address] documented in this encounter Visit Diagnoses Diagnosis Benign prostatic hyperplasia without lower urinary tract symptoms- Primary documented in this encounter Additional Health Concerns Infection Onset Date Last Indicated Resolved Time CoV-Risk 08/13/2020 08/13/2020 08/23/2020 1:25 AM EST CoV-Risk Comment:Per Ambulatory Triage Form 03/16/2024 03/16/202403/27 1:22 AM EDT documented as of this encounter Care Teams Tongue And Quarter Stitcher Relationship Specialty Start Date End Date Elizabeth Samaniego MD [address] [place] [address] 7 [place] [address] [email or web address] PCP - General 07/02/17 Petra Murillo PA [facility] [address] Historical LMR Provider 05/23/17 2 Alissa Young NP 1 [place] [address] Historical LMR Provider 05/23/17 2 Zeina Rueda DO [address] [place] [address] 7 [place] [address] Historical LMR Provider 05/23/17 Rainer Mendez MD [address] [place] [address] [email or web address] Historical LMR Provider 05/23/17 Jorge Hale DO [address] [place] [address] Orthopedics & Sports Medicine, [facility] [place] [address] Historical LMR Provider 05/23/17 08/10/21 Daniella Villeda FNP [address] [place] [address] 7 [place] [address] Historical LMR Provider 05/23/17 Louis Johnson MD [address] [place] [address], 2nd [place] [address] Historical LMR Provider 05/23/17 08/10/21 Maya Wilson MD [address] [place] [address] 7 [place], [place] [address] Historical LMR Provider 05/23/17 Dexter Lamb MD [address] [place] [phone] Historical LMR Provider 05/23/17 Elizabeth Estrada MD [address] [place] [id number] Historical LMR Provider 05/23/17 Pilo Haro MD [address] [place], [place] [address] [place] [address] [email or web address] Historical LMR Provider 05/23/17 08/10/21 Elizabeth Samaniego MD [address] [place] [address] 7 [place] [address] [email or web address] Insurance Assigned Provider 11/07/2302/06/24 documented as of this encounter Additional Source Comments The information contained in this document represents components of the legal health record. It is not the complete legal health record.[facility]
--- OUTSIDE RECORDS SUMMARY | 2025-04-27 20:07 | XMS_ITS | Encounter Summary ---
Author Organization [facility] Address 399 [facility] [address] [place] [address] Phone Care Team Providers Care Pouring Crane Operator Name Role Phone Zeina Rueda Carlos NGUYEN Unavailable [phone] Rainer Mendez MD Unavailable Daniella VilledaP Unavailable [phone] Maya Wilson MD Unavailable [phone] Elizabeth Samaniego MD Unavailable [phone] Elizabeth Samaniego MD Primary Care Provider [phone] Elizabeth Samaniego MD Unavailable Encounter Details Date Type Department Care Team (Late st Contact Info) Description 09/03/2023 Procedure Pass [address] [place] [address] Social History Tobacco Use Types Packs/Day Years [...] high school, GED, job training, learning the Emir[place] language, technical skills, or developing parenting skills)? [...] Description 06/06/2025 7:30 AM EST Office Visit [facility] Services [address] [place] [address] Elizabeth Samaniego MD [address] [place] [address], [address] [place] [address] Eloisa Burgos, PT 8 [place] [address] 06/20/2025 12:15 PM EST Evaluation [facility] Audiology [address] [address] Heide FriedySebastian [address] [place] [address] [email or web address] 06/20/2025 1:00 PM EST Office Visit [facility] Otology [address] [address] Joe Alonzo MD [address] [place] [address] [email or web address] documented as of this encounter Visit Diagnoses Not on filedocumented in this encounter Additional Health Concerns Infection Onset Date Last Indicated Resolved Time CoV-Risk Comment:Per Ambulatory Triage Form 03/16/2024 03/16/202403/27 1:22 AM EDT Assessment Noted Time PHQ-2 Depression Total Score: 2 09/05/19 23 3:42 PM EST documented as of this encounter Care Teams Pouring Crane Operator Relationship Specialty Start Date End Date Elizabeth Samaniego MD [address] [place] [address] [email or web address] PCP - General 07/02/17 Zeina Rueda DO [address] [place] [address] 7 [place] [address] [email or web address] Historical LMR Provider 05/23/17 Rainer Mendez MD [address] [place] [address] [email or web address] Historical LMR Provider 05/23/17 Daniella Villeda FNP [address] [place] [address], [facility] 7 [place] [address] [email or web address] Historical LMR Provider 05/23/17 Maya Wilson MD [address] [place] [address] 7 [place] [address] [email or web address] Historical LMR Provider 05/23/17 Elizabeth Samaniego MD [address] [place] [address] 7 [place] [address] [email or web address] Historical LMR Provider 05/23/17 Elizabeth Samaniego MD [address] [place] [address] 7 [place] [address] [email or web address] Insurance Assigned Provider 11/07/2302/06/24 documented as of this encounter Additional Source Comments The information contained in this document represents components of the legal health record. It is not the complete legal health record.[facility]
--- OUTSIDE RECORDS SUMMARY | 2025-04-27 20:07 | XMS_ITS | Encounter Summary ---
Author Organization [facility] Address [address] [facility] [address] [place] [address] Phone Care Team Providers Care Bacon Slicer Name Role Phone Petra Murillo Unavailable Alissa Young SUPERVISOR WORD PROCESSING Unavailable Zeina Rueda DO Unavailable Rainer Mendez MD Unavailable Jorge Hale DO Unavailable Daniella Villeda PRESIDENT [employer] Unavailable Louis Johnson MD Unavailable Maya Wilson MD Unavailable Dexter Lamb MD Unavailable Elizabeth Samaniego MD Unavailable Pilo Haro MD Unavailable Elizabeth Samaniego MD Primary Care Provider Elizabeth Samaniego MD Unavailable [phone] Encounter Details Date Type Department Care Team (Late st Contact Info) Description 12/09/2020 Procedure Pass [facility], Ct Scan - [address] [address] Social History Tobacco Use Types Packs/Day Years [...] high school, GED, job training, learning the Azerbaijani language, technical skills, or developing parenting skills)? [...] Description 06/06/2025 7:30 AM EST Office Visit [facility] 8 [place], [place] [phone] Elizabeth Samaniego MD [address] [place] [address], [address] [place], [place] [phone] Eloisa Burgos, PT 8 [place] [address] 06/20/2025 12:15 PM EST Evaluation [facility] [place] [address] [address] Heide Fried AuD 243 [place] [address] [email or web address] 06/20/2025 1:00 PM EST Office Visit [facility] [place] [address] [address] Joe Alonzo MD 243 [place] [address] [email or web address] documented as of this encounter Visit Diagnoses Not on filedocumented in this encounter Additional Health Concerns Infection Onset Date Last Indicated Resolved Time CoV-Risk Comment:Per Ambulatory Triage Form 03/16/2024 03/16/202403/27 1:22 AM EDT Assessment Noted Time PHQ-2 Depression Total Score: 1 12/10/19 21 9:48 PM EDT documented as of this encounter Care Teams Bacon Slicer Relationship Specialty Start Date End Date Elizabeth Samaniego MD [address] [place] [address] 7 [place] [address] [email or web address] PCP - General 07/02/17 Petra Murillo PA [facility] [place] [address] Historical LMR Provider 05/23/17 2 Alissa Young NP 1 [facility] [address] Historical LMR Provider 05/23/17 2 Zeina Rueda DO [address] [place] [address] 7 [place] [address] [email or web address] Historical LMR Provider 05/23/17 Rainer Mendez MD [address] [place] [address] [email or web address] Historical LMR Provider 05/23/17 Jorge Hale DO [address] [place] [address] Orthopedics & Sports Medicine, [place] [address] Historical LMR Provider 05/23/17 08/10/21 Daniella Villeda FNP [address] [place] [address] [email or web address] Historical LMR Provider 05/23/17 Louis Johnson MD [address] [place] [address], 2nd [place] [address] Historical LMR Provider 05/23/17 08/10/21 Maya Wilson MD [address] [place] [address] Historical LMR Provider 05/23/17 Dexter Lamb MD [address] [place] [id number] Historical LMR Provider 05/23/17 Elizabeth Estrada MD [address] [place] [address] 7 [place] [address] [email or web address] Historical LMR Provider 05/23/17 Pilo Haro MD [address] [place] [address] [address] [place] [phone] [email or web address] Historical LMR Provider 05/23/17 08/10/21 Elizabeth Samaniego MD [address] [place] [address] [address] [place] [address] [email or web address] Insurance Assigned Provider 11/07/2302/06/24 documented as of this encounter Additional Source Comments The information contained in this document represents components of the legal health record. It is not the complete legal health record.[facility]
--- OUTSIDE RECORDS SUMMARY | 2025-04-27 20:07 | XMS_ITS | Encounter Summary ---
Author Organization [facility] Address [address] [facility] [address] [place] [address] Phone Care Team Providers Care Rn Mobile Name Role Phone Zeina Rueda Carlos NGUYEN Unavailable [phone] Rainer Mendez MD Unavailable Daniella VilledaP Unavailable Maya Wilson MD Unavailable [phone] Elizabeth Samaniego MD Unavailable [phone] Elizabeth Samaniego MD Primary Care Provider [phone] Elizabeth Samaniego MD Unavailable Encounter Details Date Type Department Care Team (Late st Contact Info) Description 09/03/2023 Procedure Pass [address] [place] [address] Social History Tobacco Use Types Packs/Day Years [...] high school, GED, job training, learning the Indian language, technical skills, or developing parenting skills)? [...] Description 06/06/2025 7:30 AM EST Office Visit [facility] [address] [place] [address] Elizabeth Samaniego MD [address] [place] [address], [address] [place] [address] Eloisa Burgos, PT 8 [place] [address] 06/20/2025 12:15 PM EST Evaluation [facility] Audiology [address] [address] Heide FriedySebastian 243 [place] [address] [email or web address] 06/20/2025 1:00 PM EST Office Visit [facility] Otology [address] [address] Joe Alonzo MD 243 [place] [address] [email or web address] documented as of this encounter Visit Diagnoses Not on filedocumented in this encounter Additional Health Concerns Infection Onset Date Last Indicated Resolved Time CoV-Risk Comment:Per Ambulatory Triage Form 03/16/2024 03/16/202403/27 1:22 AM EDT Assessment Noted Time PHQ-2 Depression Total Score: 2 09/05/19 23 3:42 PM EST documented as of this encounter Care Teams Rn Mobile Relationship Specialty Start Date End Date Elizabeth Samaniego MD [address] [place] [address] [email or web address] PCP - General 07/02/17 Zeina Rueda DO [address] [place] [address] 7 [place] [address] [email or web address] Historical LMR Provider 05/23/17 Rainer Mendez MD [address] [place] [address] [email or web address] Historical LMR Provider 05/23/17 Daniella Villeda FNP [address] [place] [address], [facility] 7 [place] [address] [email or web address] Historical LMR Provider 05/23/17 Maya Wilson MD [address] [place] [address] 7 [place] [address] [email or web address] Historical LMR Provider 05/23/17 Elizabeth Samaniego MD [address] [place] [address] 7 [place] [address] [email or web address] Historical LMR Provider 05/23/17 Elizabeth Samaniego MD [address] [place] [address] 7 [place] [address] [email or web address] Insurance Assigned Provider 11/07/2302/06/24 documented as of this encounter Additional Source Comments The information contained in this document represents components of the legal health record. It is not the complete legal health record.[facility]
--- OUTSIDE RECORDS SUMMARY | 2025-04-27 20:07 | XMS_ITS | Encounter Summary ---
Author Organization [facility] Address [address] [facility] [address] [place] [address] Phone Care Team Providers Care Associate Professor Of Church Music Name Role Phone Petra Murillo Unavailable [phone] Alissa Young DAYCARE DIRECTOR Unavailable Zeina Rueda DO Unavailable Rainer Mendez MD Unavailable Jorge Hale DO Unavailable Daniella Villeda MANAGER STATISTICAL Unavailable Louis Johnson MD Unavailable Maya Wilson MD Unavailable Dexter Lamb MD Unavailable Elizabeth Samaniego MD Unavailable Pilo Haro MD Unavailable [phone] Elizabeth Samaniego MD Primary Care Provider Elizabeth Samaniego MD Unavailable Encounter Details Date Type Department Care Team (Late st Contact Info) Description 07/06/2018 Ancillary Orders Virtual Department 30 [place], [place] [phone] Nola Najera PA [address] [address] [email or web address] [email or web address] kidney Social History Tobacco Use [...] Description 06/06/2025 7:30 AM EST Office Visit [facility] 8 [place] [address] Elizabeth Samaniego MD [address] [place] [address] [address] [place] [address] [email or web address] Eloisa Burgos, PT 8 [place] [address] 06/20/2025 12:15 PM EST Evaluation [facility] Audiology [address] [address] Heide Fried AuD [address] [place] [address] [email or web address] 06/20/2025 1:00 PM EST Office Visit [facility] Otology [address] [address] Joe Alonzo MD [address] [place] [address] [email or web address] documented as of this encounter Results * US Kidneys (07/21/2018 8:35 AM EST) Anatomical Region Laterality Modality Abdomen, Kidney Ultrasound 07/21/2018 9:17 AM EST Impressions 07/21/2018 9:41 AM EST Multiple bilateral renal stones without obstruction. POS [id number] Edited by: Vernell Montoya on 07/21/2018 9:20 [...] Multiple bilateral renal stones without obstruction. POS [id number] Edited by: Vernell Montoya on 07/21/2018 9:20 [...] documented as of this encounter Care Teams Associate Professor Of Church Music Relationship Specialty Start Date End Date Elizabeth Samaniego MD [address] [facility] 7 [place] [address] [email or web address] PCP - General 07/02/17 Petra Murillo PA [facility] [place] [address] Historical LMR Provider 05/23/17 2 Alissa Young NP [address] [place] [address] Historical LMR Provider 05/23/17 2 Zeina Rueda DO [address] [place] [address] 7 [place] [address] [email or web address] Historical LMR Provider 05/23/17 Rainer Mendez MD [address] [place] [address] [email or web address] Historical LMR Provider 05/23/17 Jorge Hale DO [address] [place] [address] Orthopedics & Sports Medicine, [facility] [place] [address] [email or web address] Historical LMR Provider 05/23/17 08/10/21 Daniella Villeda FNP [address] [facility], [facility] 7 [place] [address] [email or web address] Historical LMR Provider 05/23/17 Louis Johnson MD 22 [facility], 2nd [place] [address] Historical LMR Provider 05/23/17 08/10/21 Maya Wilson MD [address] [place] [address] 7 [place] [address] [email or web address] Historical LMR Provider 05/23/17 Dexter Lamb MD [address] [place] [address] 7 [place] [address] Historical LMR Provider 05/23/17 2 Elizabeth Samaniego MD [address] [place] [address] 7 [place] [address] [email or web address] Historical LMR Provider 05/23/17 Pilo Haro MD [address] [place], [place] [address] [place] [address] [email or web address] Historical LMR Provider 05/23/17 08/10/21 Elizabeth Samaniego MD [address] [place] [address] 7 [place] [address] [email or web address] Insurance Assigned Provider 11/07/2302/06/24 documented as of this encounter Additional Source Comments The information contained in this document represents components of the legal health record. It is not the complete legal health record.[facility]
== END 2025-04-27 19:56 | disposition home or self-care (01) ==
LOC: HO.MRI 19:55
PROVIDERS: PCP Family Medicine; Visit Provider Physician Assistant
DX: M54.12 Radiculopathy, cervical region (principal)
CPT/HCPCS: 72141

== ENCOUNTER 2025-06-14 14:31 | Outpatient (AMB) | payer OTHER, SELFPAY ==
--- OUTSIDE RECORDS SUMMARY | 2024-02-08 06:30 | XMS_ITS | Continuity of Care Document ---
Author Organization [facility] Address [address] [facility] [address] [address] [place] [address] Phone Care Team Providers Care Workers Compensation Examiner Name Role Phone Bran JONES, RVT, RPVI, Horace Esme U navailable Allergies, Adverse Reactions, Alerts Substance Reaction Status Criticality No Known Allergies Active No Inform ation Procedures Procedure Date Duplex Scan-extrem Veins; Uni/ CT & [place] J Inj Scleros Solut; Mx Veins 1- CT & [place] J Ultrason Guidan Needle Bx-rad- CT & [place] J Duplex Scan-extrem Veins; Uni/ CT & [place] J Endovenous Laser, 1st Vein- CT & [place] Endovenous Laser, 1st Vein- CT & [place] Endovenous laser vein addon- CT & [place] Jan Ultrason Guidan Needle Bx-rad- CT & [place] J Inj Sclerosing Solution; Sngl- CT & [place] J Offic Cons New/estab Mod 40 Mi- CT & [place] Duplex Scan-extrem Veins; Comp- CT & [place] Advance Directives Directive Yes / No Effective Date File Name No Information Encounters Encounter Description Practice Location Reason(s) For Visit Diagnoses Date Provider Providers Copied on Encounter [facility], [address] [place] [address] Dr [address], [id number], [place] tel:[phone] [facility] Encounter for follow-up examination after completed treatment for conditions other than malignant neVaricose veins of left lower extremity with pain 4 Bran JONES RVT, RPVI Robert. [address] [place] [address], [place], [id number] , [place]. [phone] Referring Provider: Elizabeth Samaniego MD S, [address] [facility] [address], [place], [address]. tel:[phone] [facility], [address] [place] [address] [address], [id number], [place] tel:[phone] [facility] [place] Varicose veins of left lower extremity with other complications 4 Bran JONES RVT, RPVI Robert. [address] [place] [address], [place], [id number] , [place]. [phone] Referring Provider: Horace Sotomayor MD, RVT, RPVI, [address] [place] [address], [place], [address] . tel:[phone] [facility], [address] [place] [address] [address] [place], [id number], [place] tel:[phone] [facility] [place] Encounter for follow-up examination after completed treatment for conditions other than malignant nePain in left leg 4 Bran JONES RVT, RPVI Robert. [address] [place] [address], [place], [id number] , [place]. [phone] Referring Provider: Horace Sotomayor MD, RVT, RPVI, [address] [place] [address], [place], [address] . tel:[phone] [facility], [address] [place] [address] [address], [id number], [place] tel:[phone] [facility] [place] Varicose veins of left lower extremity with other complications 4 Bran JONES RVT, RPVI Robert. [address] [place] [address], [place], [id number] , [place]. [phone] [place] [facility], [address] [place] [address] Dr Mike [address]Suite [place], [id number], [place] tel:[phone] [facility] [place] Varicose veins of left lower extremity with other complications 4 Bran JONES RVT, ALANNA Vu. [address] [facility], [address], [place], [id number] , [place]. [phone] Referring Provider: Horace Sotomayor MD, RVT, ALANNA, [address] [facility] [address], [place], [address] . tel:[phone] [place] [facility], [address] [place] [address] Dr Mike [address]Suite [place], [id number], [place] tel:[phone] [facility] [place] No Information 4 Bran JONES RVT, ALANNA Vu. [address] [facility], [address], [place], [id number] , [place]. [phone] Offic Cons New/estab Mod 40 Mi- CT & [place] [facility], [address] [place] [address] Dr Mike [address] [place], [id number], [place] tel:[phone] [facility] [place] Varicose veins of bilateral lower extremities with other complicationsPa in in right lower legPain in left lower legLocalized edemaRestless legs syndromePhlebit is and thrombophlebiti s of superficial vessels of right lower extremityPrurit us, unspecified 4 Bran JONES RVT, ALANNA Vu. [address] [facility], [address], [place], [id number] , [place]. [phone] Referring Provider: DOES NOT HAVE REF. [facility], [address] [place] [address] Dr Mike [address] [place], [id number], [place] tel:[phone] [place] Chronic venous hypertension (idiopathic) with other complications of bilateral lower extremity 4 Bran JONES RVT, ALANNA Vu. [address] [facility], [address], [facility], [place], [id number] , [place]. tel:[phone] Referring Provider: DOES NOT HAVE REF. Family History Family Member Type Diagnosis Age At Onset No Information Payers Payer name Insurance type Covered democrat ID Aleyda rosenbaum(s) [facility] [id number] Social History Type Description Quantity Date Captured Comments Sex Male Smoking Status No Information Chief Complaint And Reason For Visit No Information Reason For Referral Reason For Referral No Information Plan Of Treatment Date Type Action Status Goal Diet education completed Referral Ordered: Weight management: Referral to physician timeframe: 3 Months (related to Body mass index (BMI) 35.0-35.9, adult) ordered History Of Present Illness Encounter Date Complaint History Of Prese nt Illness No Information Functional Status Date Functional Assessmen t No Information Instructions Date Instruction Additional Infor mation Pre and post instruc tions reviewed and provided Related to Varicose veins of bilateral lower extremities with other complications Patient education booklet given Related to Varicose veins of bilateral lower extremities with other complications Lifestyle education Related to B nia mass index (BMI) 35.0-35.9, adult Giving Encouragement to exercise Related to Body mass index (BMI) 35.0-35.9, adult Diet education Related to Body mass index (BMI) 35.0-35.9, adult Assessments Type Assessment Date No Information Patient Care Teams Name Effective Dates (start - stop) Status Members No Information
--- NOTE | 2025-06-14 14:32 | A.SPINEOV_ITS ---
Intake Visit Reasons: Discuss sx Intake Note: Mr. Ladd is here today to Discuss Surgery. [employer] Sales Representative Required: No Allergies No Known Allergies Allergy (Verified 06/14/25 14:32) Assessment & Plan Assessment & Plan (1) Spondylolisthesis at L5-S1 level: Code(s): M43.17 - Spondylolisthesis, lumbosacral region Category: Medical Plan Dear colleague, On 06/14/2025 I saw for preoperative visit Christofer Ladd. He is scheduled to undergo an anterior diskectomy and fusion C4-5 and C5-6 for bilateral cervical radiculopathy on 07/06/2025. He came in to discuss the surgery. He was previously seen by BERHANE Ro. I repeated the history and the patient states that he does not have significant neck pain or bilateral arm pain. His main concern is subjective weakness of his left hand and some numbness that can happen at night. On exam, there are no signs of cervical myelopathy. The MRI of the cervical spine shows lyofhvum-tr-wamquu bilateral C5 and C6 foraminal stenosis and central stenosis without spinal cord compression. We decided to hold off on neck surgery based on the history and physical exam. He did complain of significant amount of low back pain and unilateral neurogenic claudication with discomfort in a left L5 dermatome with walking and standing. I reviewed an MRI of the lumbar spine of 2023 and compared it with the latest MRI that was performed 3 months ago. The MRI shows a grade 2 L5-S1 spondylolisthesis that has advanced in the last year. The MRI also shows bilateral L5 foraminal stenosis and a further loss of disc height at this level. I would recommend an anterior lumbar interbody fusion L5-S1 to restore the anatomical alignment to treat his back pain and neurogenic claudication symptoms. He should only consider correcting the spondylolisthesis if the symptoms are that is severe that it interferes with his daily activities. He is going to think about this option and will call my office if he wants to proceed. I spent 35 minutes in his consult for history, physical exam, review of imaging and discussing plan of care. Janak Elliott MD, PhD Spine Fellowship Trained Neurosurgeon Director, [facility] Coding Level of Care Code Est Pt Level 4 (68408) Diagnoses Spondylolisthesis at L5-S1 level M43.17
--- OUTSIDE RECORDS SUMMARY | 2025-06-14 17:59 | XMS_ITS | Encounter Summary ---
Author Organization [facility] Address [address] [facility] [address] [place] [address] Phone Care Team Providers Care Landing Scaler Name Role Phone Zeina Rueda Carlos NGUYEN Unavailable [phone] Rainer Mendez MD Unavailable Daniella VilledaP Unavailable [phone] Maya Wilson MD Unavailable Elizabeth Samaniego MD Unavailable Elizabeth Samaniego MD Primary Care Provider Elizabeth Samaniego MD Unavailable [phone] Encounter Details Date Type Department Care Team (Late st Contact Info) Description 03/14/2022 Procedure Pass [facility], Ct Scan - [address] [address] Social History Tobacco Use Types Packs/Day Years [...] high school, GED, job training, learning the Bruneian language, technical skills, or developing parenting skills)? [...] Info) Description 06/20/2025 12:15 PM EST Evaluation [facility] Audiology [address] [address] Heide Fried AuD [address] [place] [address] [email or web address] 06/20/2025 1:00 PM EST Office Visit [facility] Otology [address] [address] Joe Alonzo MD [address] [place] [address] [email or web address] 06/28/2025 7:15 AM EST Office Visit [facility] [address] [place] [address] 3rd Floor, [address] [place] [address] ArcChris santiago DO [facility] [address] [place] [address] [email or web address] documented as of this encounter Visit Diagnoses Not on filedocumented in this encounter Additional Health Concerns Infection Onset Date Last Indicated Resolved Time CoV-Risk Comment:Per Ambulatory Triage Form 03/16/2024 03/16/202403/27 1:22 AM EDT Assessment Noted Time PHQ-2 Depression Total Score: 1 12/07/19 9:15 AM EDT documented as of this encounter Care Teams Landing Scaler Relationship Specialty Start Date End Date Elizabeth Samaniego MD [address] [place] [address] [email or web address] PCP - General 07/02/17 Zeina Rueda DO [address] [place] [address] [email or web address] Historical LMR Provider 05/23/17 Rainer Mendez MD [address] [place] [address] [email or web address] Historical LMR Provider 05/23/17 Daniella Villeda FNP [address] [place] [address] [email or web address] Historical LMR Provider 05/23/17 Maya Wilson MD [address] [place] [address] [email or web address] Historical LMR Provider 05/23/17 Elizabeth Samaniego MD [address] [place] [address] [email or web address] Historical LMR Provider 05/23/17 Elizabeth Samaniego MD [address] [place] [address], [address] [place] [address] [email or web address] Insurance Assigned Provider 11/07/2302/06/24 documented as of this encounter Additional Source Comments The information contained in this document represents components of the legal health record. It is not the complete legal health record.[facility]
--- OUTSIDE RECORDS SUMMARY | 2025-06-14 17:59 | XMS_ITS | Encounter Summary ---
Author Organization [facility] Address [address] [address] Phone Care Team Providers Care Plastic Card Grader Cardroom Name Role Phone BandarChandu [email or web address] Gonzalez DO Unavailable [phone] Rainer Mendez MD Unavailable [phone] Daniella VilledaP Unavailable Maya Wilson MD Unavailable Elizabeth Samaniego MD Unavailable Elizabeth Samaniego MD Primary Care Provider [phone] Elizabeth Samaniego MD Unavailable Reason for Referral * MRI/CAT Scan - Closed Specialty Diagnoses / Procedures Referred By Amilcar rascon Referred To Contact Radiology Diagnoses Calculus of kidney Procedures CT Abdomen/Pelvis Alida Gutierrez PA Phone: tel: fax: [email or web address] Referral ID Status Reason Start Date Expiration Date Visits Re quested Visits Authorized [id number] Closed 04/18/2022 05/18/2022 1 1 Encounter Details Date Type Department Care Team (Latest Contact Info) Description 03/14/2022 Transcribe Orders Virtual Department 30 [place] [address] Alida Gutierrez PA 34[address] [facility] 103 [place] [address] [email or web address] Calculus of kidney [...] high school, GED, job training, learning the Latvian language, technical skills, or developing parenting skills)? [...] Upcoming Encounters Date Type Department Care Team ([facility] st Contact Info) Description 06/20/2025 12:15 PM EST Evaluation [facility] [address] [address] Heide Fried AuD [address] [place] [address] [email or web address] 06/20/2025 1:00 PM EST Office Visit [facility] [place] [address] [facility] 2nd [place] [address] Joe Alonzo MD 243 [place] [address] [email or web address] 06/28/2025 7:15 AM EST Office Visit [facility] [address] [facility] 3rd Floor, [address] [place] [address] Chris Jackson DO 22 [facility] [address] [place] [address] [email or web address] documented as of this encounter Results * [...] documented as of this encounter Care Teams Plastic Card Grader Cardroom Relationship Specialty Start Date End Date Elizabeth Samaniego MD [address] [place] [address] 7 [place] [address] [email or web address] PCP - General 07/02/17 Zeina Rueda DO [address] [place] [address] 7 [place] [address] [email or web address] Historical LMR Provider 05/23/17 Rainer Mendez MD [address] [place] [address] [email or web address] Historical LMR Provider 05/23/17 Daniella Villeda FNP [address] [place] [address] 7 [place] [address] [email or web address] Historical LMR Provider 05/23/17 Maya Wilson MD [address] [place] [address] 7 [place] [address] [email or web address] Historical LMR Provider 05/23/17 Elizabeth Samaniego MD [address] [place] [address] 7 [place] [address] [email or web address] Historical LMR Provider 05/23/17 Elizabeth Samaniego MD [address] [place] [address] 7 [place] [address] [email or web address] Insurance Assigned Provider 11/07/2302/06/24 documented as of this encounter Additional Source Comments The information contained in this document represents components of the legal health record. It is not the complete legal health record.[facility]
--- OUTSIDE RECORDS SUMMARY | 2025-06-14 17:59 | XMS_ITS | Encounter Summary ---
Author Organization [facility] Address 399 [facility] [address] [place] [address] Phone Care Team Providers Care Web Offset Press Feeder Name Role Phone Zeina Rueda Carlos NGUYEN Unavailable [phone] Rainer Mendez MD Unavailable [phone] Daniella VilledaP Unavailable [phone] Maya Wilson MD Unavailable [phone] Elizabeth Samaniego MD Unavailable Elizabeth Samaniego MD Primary Care Provider Elizabeth Samaniego MD Unavailable [phone] Encounter Details Date Type Department Care Team (Late st Contact Info) Description 06/11/2022 Procedure Pass [facility], Ct Scan - [address] [address] Social History Tobacco Use Types Packs/Day Years [...] high school, GED, job training, learning the Luxembourger language, technical skills, or developing parenting skills)? [...] 10:25 PM EST Cate Powell RN * [place] Suicide Severity Rating Scale (Screener/Recent Self-Report) Question [...] 06/20/2025 12:15 PM EST Evaluation [facility] [address] 2nd [place] [address] Heide Fried, Sebastian [address] [place] [address] [email or web address] 06/20/2025 1:00 PM EST Office Visit [facility] 243 [facility] 2nd [place] [address] Joe Alonzo MD 243 [place] [address] [email or web address] 06/28/2025 7:15 AM EST Office Visit [facility] [address], [address] [place] [address] Chris Jackson DO [address] [address] [email or web address] documented as of this encounter Visit Diagnoses Not on filedocumented in this encounter Additional Health Concerns Infection Onset Date Last Indicated Resolved Time CoV-Risk Comment:Per Ambulatory Triage Form 03/16/2024 03/16/202403/27 1:22 AM EDT Assessment Noted Time PHQ-2 Depression Total Score: 1 12/07/19 22 9:15 AM EDT documented as of this encounter Care Teams Web Offset Press Feeder Relationship Specialty Start Date End Date Elizabeth Samaniego MD [address] [place] [address] [email or web address] PCP - General 07/02/17 Zeina Rueda DO [address] [place] [address] Historical LMR Provider 05/23/17 Rainer Mendez MD [address] [place] [address] [email or web address] Historical LMR Provider 05/23/17 Daniella Villeda FNP [address] [place] [address], [address] [place] [address] [email or web address] Historical LMR Provider 05/23/17 Maya Wilson MD [address] [place] [address] 7 [place] [address] [email or web address] Historical LMR Provider 05/23/17 Elizabeth Samaniego MD [address] [place] [address], [facility] 7 [place] [address] [email or web address] Historical LMR Provider 05/23/17 Elizabeth Samaniego MD [address] [place] [address], [facility] 7 [place] [address] [email or web address] Insurance Assigned Provider 11/07/2302/06/24 documented as of this encounter Additional Source Comments The information contained in this document represents components of the legal health record. It is not the complete legal health record.[facility]
--- OUTSIDE RECORDS SUMMARY | 2025-06-14 17:59 | XMS_ITS | Encounter Summary ---
Author Organization [facility] Address [address] [address] Phone Care Team Providers Care Green Building Architect Name Role Phone Petra Murillo Unavailable [phone] Alissa Young VACUUM CLEANER ASSEMBLER Unavailable Zeina Rueda DO Unavailable Rainer Mendez MD Unavailable Jorge Hale DO Unavailable Daniella Villeda SENIOR ADVISOR Unavailable Louis Johnson MD Unavailable [phone] Maya Wilson MD Unavailable Dexter Lamb MD Unavailable [phone] Elizabeth Samaniego MD Unavailable [phone] Pilo Haro MD Unavailable [phone] Elizabeth Samaniego MD Primary Care Provider [phone] Elizabeth Samaniego MD Unavailable [phone] Encounter Details Date Type Department Care Team (Late st Contact Info) Description 10/05/2019 Transcribe Orders [facility] Department 30 [place] [address] Brothers, Jaison Uribe MD [address] [place] [address] Social History Tobacco Use Types Packs/Day Years [...] Info) Description 06/20/2025 12:15 PM EST Evaluation [facility] [address] [address] Heide Fried AuD [address] [place] [address] [email or web address] 06/20/2025 1:00 PM EST Office Visit [facility]ology [address] [address] Joe Alonzo MD [address] [place] [address] [email or web address] 06/28/2025 7:15 AM EST Office Visit [facility] [address] [place] [address], [address] [place] [address] Chris Jackson DO [address] [place] [address] documented as of this encounter Visit Diagnoses Not on filedocumented in this encounter Additional Health Concerns Infection Onset Date Last Indicated Resolved Time CoV-Risk 08/13/2020 08/13/2020 08/23/2020 1:25 AM EST CoV-Risk Comment:Per Ambulatory Triage Form 03/16/2024 03/16/202403/27 1:22 AM EDT documented as of this encounter Care Teams Green Building Architect Relationship Specialty Start Date End Date Elizabeth Samaniego MD [address] [place] [address] [email or web address] PCP - General 07/02/17 Petra Murillo PA [facility] [place] [address] Historical LMR Provider 05/23/17 2 Alissa Young NP [address] [place] [address] Historical LMR Provider 05/23/17 2 Zeina Rueda DO [address] [place] [address] [email or web address] Historical LMR Provider 05/23/17 Rainer Mendez MD [address] [place] [address] [email or web address] Historical LMR Provider 05/23/17 Jorge Hale DO [address] [place] [address] [facility] Medicine, [place] [address] Historical LMR Provider 05/23/17 08/10/21 Daniella Villeda FNP [address] [place] [address] [email or web address] Historical LMR Provider 05/23/17 Louis Johnson MD [address] [place] [address], 2nd [place] [address] [email or web address] Historical LMR Provider 05/23/17 08/10/21 Maya Wilson MD [address] [place] [address] [address] [place] [address] [email or web address] Historical LMR Provider 05/23/17 Dexter Lamb MD [address] [place] [address] 7 [place] [address] Historical LMR Provider 05/23/17 2 Elizabeth Samaniego MD [address] [place] [address] [address] [place] [address] [email or web address] Historical LMR Provider 05/23/17 Pilo Haro MD [address] [place], [place] [address] [place] [address] [email or web address] Historical LMR Provider 05/23/17 08/10/21 Elizabeth Samaniego MD [address] [place] [address] 7 [place] [address] [email or web address] Insurance Assigned Provider 11/07/2302/06/24 documented as of this encounter Additional Source Comments The information contained in this document represents components of the legal health record. It is not the complete legal health record.[facility]
--- OUTSIDE RECORDS SUMMARY | 2025-06-14 18:00 | XMS_ITS | Encounter Summary ---
Author Organization [facility] Address [address] [address] Phone Care Team Providers Care Tube Lancer Name Role Phone Petra Murillo Unavailable [phone] Alissa Young STRAIGHT CUTTER MACHINE Unavailable Zeina Rueda DO Unavailable Rainer Mendez MD Unavailable Jorge Hale DO Unavailable Daniella Villeda INTERNET SITE DESIGNER Unavailable Louis Johnson MD Unavailable Maya Wilson MD Unavailable [phone] Dexter Lamb MD Unavailable Elizabeth Samaniego MD Unavailable Pilo Haro MD Unavailable [phone] Elizabeth Samaniego MD Primary Care Provider [phone] Elizabeth Samaniego MD Unavailable [phone] Encounter Details Date Type Department Care Team (Late st Contact Info) Description 02/05/2018 Ancillary Orders Virtual Department 30 [place], [place] [phone] Alex Romano MD 36[address] [facility], [address] [place] [address] [email or web address] Calculus of kidney; Benign prostatic hyperplasia with [...] Info) Description 06/20/2025 12:15 PM EST Evaluation [facility] Audiology [address] [address] Heide Fried AuD [address] [place] [address] [email or web address] 06/20/2025 1:00 PM EST Office Visit [facility] Otology [address] [address] Joe Alonzo MD [address] [place] [address] [email or web address] 06/28/2025 7:15 AM EST Office Visit [facility] [address] [place] [address] 3rd [facility], [address] [place] [address] Chris Jackson DO [address] [place] [address] [place] [address] [email or web address] documented as of this encounter Results * XR ABDOMEN 1 VIEW (02/08/2018 5:38 PM EDT) Anatomical Region Laterality Modality Abdomen Radiographic Jen ging 02/08/2018 7:04 PM EDT Impressions 02/08/2018 7:07 PM EDT Numerous bilateral intrarenal stones POS [id number] Narrative 02/08/2018 7:07 PM EDT AP abdomen [...] unremarkable IMPRESSION: Numerous bilateral intrarenal stones POS [id number] Alex Romano MD IMG XR ABDOMEN Final [...] documented as of this encounter Care Teams Tube Lancer Relationship Specialty Start Date End Date Elizabeth Samaniego MD [address] [place] [address] 7 [place] [address] [email or web address] PCP - General 07/02/17 Petra Murillo PA [facility] [place] [address] Historical LMR Provider 05/23/17 2 Alissa Young NP 1 [place] [address] Historical LMR Provider 05/23/17 2 Zeina Rueda DO [address] [place] [address] [email or web address] Historical LMR Provider 05/23/17 Rainer Mendez MD [address] [place] [address] [email or web address] Historical LMR Provider 05/23/17 Jorge Hale DO [address] [place] [address] Orthopedics [facility] Sports Medicine, [place] [address] [email or web address] Historical LMR Provider 05/23/17 08/10/21 Daniella Villeda FNP [address] [place] [address] [email or web address] Historical LMR Provider 05/23/17 Louis Johnson MD [address] [place] [address], [address] [place] [address] Historical LMR Provider 05/23/17 08/10/21 Maya Wilson MD [address] [place] [address] 7 [place] [address] [email or web address] Historical LMR Provider 05/23/17 Dexter Lamb MD [address] [place] [address] [place] [address] Historical LMR Provider 05/23/17 2 Elizabeth Samaniego MD [address] [place] [address] 7 [place] [address] [email or web address] Historical LMR Provider 05/23/17 Pilo Haro MD [address] [place], [place] [address] [place] [address] [email or web address] Historical LMR Provider 05/23/17 08/10/21 Elizabeth Samaniego MD [address] [place] [address] 7 [place] [address] [email or web address] Insurance Assigned Provider 11/07/2302/06/24 documented as of this encounter Additional Source Comments The information contained in this document represents components of the legal health record. It is not the complete legal health record.[facility]
--- OUTSIDE RECORDS SUMMARY | 2025-06-14 18:00 | XMS_ITS | Encounter Summary ---
Author Organization [facility] Address [address] [address] Phone Care Team Providers Care Flue Lining Dipper Name Role Phone Petra Murillo Unavailable [phone] Alissa Young TERMITE CONTROL REPRESENTATIVE Unavailable Zeina Rueda DO Unavailable Rainer Mendez MD Unavailable Jorge Hale DO Unavailable Daniella VilledaP Unavailable Louis Johnson MD Unavailable Maya Wilson MD Unavailable Dexter Lamb MD Unavailable Elizabeth Samaniego MD Unavailable Pilo Haro MD Unavailable Elizabeth Samaniego MD Primary Care Provider [phone] Elizabeth Samaniego MD Unavailable Encounter Details Date Type Department Care Team (Late st Contact Info) Description 02/04/2018 Ancillary Orders Virtual Department 30 [place] [address] Juany Mosqueda PA Kidney stone; Urinary frequency [...] Evaluation [facility] Audiology [address] [address] Heide Fried AuD [address] [place] [address] [email or web address] 06/20/2025 1:00 PM EST Office Visit [facility] Otology [address] [address] Joe Alonzo MD [address] [place] [address] [email or web address] 06/28/2025 7:15 AM EST Office Visit [facility] [address] [place] [address], [address] [place] [address] Chris Jackson DO [address] [place] [address] [email or web address] documented as of this encounter Visit Diagnoses Diagnosis Kidney stone Calculus of kidney Urinary frequency documented in this encounter Additional Health Concerns Infection Onset Date Last Indicated Resolved Time CoV-Risk 08/13/2020 08/13/2020 08/23/2020 1:25 AM EST CoV-Risk Comment:Per Ambulatory Triage Form 03/16/2024 03/16/202403/27 1:22 AM EDT documented as of this encounter Care Teams Flue Lining Dipper Relationship Specialty Start Date End Date Elizabeth Samaniego MD [address] [place] [address] 7 [place] [address] [email or web address] PCP - General 07/02/17 Petra Murillo PA [facility] [place] [address] Historical LMR Provider 05/23/17 2 Alissa Young NP 1 [place] [address] Historical LMR Provider 05/23/17 2 Zeina Rueda DO [address] [place] [address] 7 [place] [address] [email or web address] Historical LMR Provider 05/23/17 Rainer Mendez MD [address] [place] [address] [email or web address] Historical LMR Provider 05/23/17 Jorge Hale DO [address] [place] [address] [facility] Medicine, [place] [address] [email or web address] Historical LMR Provider 05/23/17 08/10/21 Daniella Villeda FNP [address] [place] [address] 7 [place] [address] [email or web address] Historical LMR Provider 05/23/17 Louis Johnson MD [address] [place] [address], 2[address] [place] [address] Historical LMR Provider 05/23/17 08/10/21 Maya Wilson MD [address] [place] [address] 7 [place] [address] [email or web address] Historical LMR Provider 05/23/17 Dexter Lamb MD [address] [place] [address] [address] [place] [address] Historical LMR Provider 05/23/17 2 Elziabeth Samaniego MD [address] [place] [address] 7 [place] [address] [email or web address] Historical LMR Provider 05/23/17 Pilo Haro MD [address] [place], [place] [address] [place] [address] [email or web address] Historical LMR Provider 05/23/17 08/10/21 Elizabeth Samaniego MD [address] [place] [address] 7 [place] [address] [email or web address] Insurance Assigned Provider 11/07/2302/06/24 documented as of this encounter Additional Source Comments The information contained in this document represents components of the legal health record. It is not the complete legal health record.[facility]
--- OUTSIDE RECORDS SUMMARY | 2025-06-14 18:00 | XMS_ITS | Encounter Summary ---
Author Organization [facility] Address 399 [facility] [address] [place] [address] Phone Care Team Providers Care Hat Conditioner Name Role Phone Zeina Rueda Carlos NGUYEN Unavailable [phone] Rainer Mendez MD Unavailable [phone] Daniella VilledaP Unavailable [phone] Maya Wilson MD Unavailable [phone] Elizabeth Samaniego MD Unavailable [phone] Elizabeth Samaniego MD Primary Care Provider [phone] Encounter Details Date Type Department Care Team (Late st Contact Info) Description 06/13/2025 Orders Only [facility] Otology Main [place] [address] [place] [address] Virginie Matt 243 [place] [address] [email or web address] Hearing loss, unspecified hearing loss type, unspecified laterality (Primary Dx) Social History Tobacco Use Types [...] high school, GED, job training, learning the Swazi language, technical skills, or developing parenting skills)? [...] Info) Description 06/20/2025 12:15 PM EST Evaluation [facility] Audiology [address] [address] Heide Fried AuD 243 [place] [address] [email or web address] 06/20/2025 1:00 PM EST Office Visit [facility] Otology [address] [address] Joe Alonzo MD [address] [place] [address] [email or web address] 06/28/2025 7:15 AM EST Office Visit [facility] [address] [place] [address], [address] [place] [address] Chris Jackson DO [address] [place] [address] [email or web address] Scheduled Orders Name Type Priority Associated Diagnoses Orde r Schedule Hearing Test Audiology Routine Hearing loss, unspecified hearing loss type, unspecified laterality Ordered: 06/13/2025 documented as of this encounter Visit Diagnoses Diagnosis Hearing loss, unspecified hearing loss type, unspecified laterality- Primary documented in this encounter Additional Health Concerns Assessment Noted Time PHQ-2 Depression Total Score: 1 12/23/19 25 9:57 PM EDT documented as of this encounter Care Teams Hat Conditioner Relationship Specialty Start Date End Date Elizabeth Samaniego MD [address] [address] [email or web address] PCP - General 07/02/17 Zeina Rueda DO [address] [place] [address] [place] [address] [email or web address] Historical LMR Provider 05/23/17 Rainer Mendez MD [address] [place] [address] [email or web address] Historical LMR Provider 05/23/17 Daniella Villeda FNP 234 [facility] 7 [place] [address] [email or web address] Historical LMR Provider 05/23/17 Maya Wilson MD 234 [facility] 7 [place] [address] [email or web address] Historical LMR Provider 05/23/17 Elizabeth Samaniego MD [address] [place] [address] 7 [place] [address] [email or web address] Historical LMR Provider 05/23/17 documented as of this encounter Additional Source Comments The information contained in this document represents components of the legal health record. It is not the complete legal health record.[facility]
--- OUTSIDE RECORDS SUMMARY | 2025-06-14 18:00 | XMS_ITS | Encounter Summary ---
Author Organization [facility] Address 399 [facility] [address] [place] [address] Phone Care Team Providers Care Heat Sealing Machine Operator Name Role Phone Zeina Rueda Carlos NGUYEN Unavailable [phone] Rainer Mendez MD Unavailable Daniella VilledaP Unavailable [phone] Maya Wilson MD Unavailable Elizabeth Samaniego MD Unavailable [phone] Elizabeth Samaniego MD Primary Care Provider [phone] Elizabeth Samaniego MD Unavailable Encounter Details Date Type Department Care Team (Late st Contact Info) Description 09/03/2023 Procedure Pass [address] [place] [address] Social History Tobacco Use Types Packs/Day Years [...] high school, GED, job training, learning the Albanian language, technical skills, or developing parenting skills)? [...] Info) Description 06/20/2025 12:15 PM EST Evaluation [facility] Audiology [facility] 243 [facility] 2nd [place] [address] Heide Fried AuD 243 [place] [address] [email or web address] 06/20/2025 1:00 PM EST Office Visit [facility] Otology Main [place] 243 [facility] 2nd [place] [address] Joe Alonzo MD 243 [place] [address] [email or web address] 06/28/2025 7:15 AM EST Office Visit [facility] 22 [facility] 3rd [facility], [address] [place] [address] Chris Jackson DO 22 [facility] [address] [place] [address] [email or web address] documented as of this encounter Visit Diagnoses Not on filedocumented in this encounter Additional Health Concerns Infection Onset Date Last Indicated Resolved Time CoV-Risk Comment:Per Ambulatory Triage Form 03/16/2024 03/16/202403/27 1:22 AM EDT Assessment Noted Time PHQ-2 Depression Total Score: 2 09/05/19 23 3:42 PM EST documented as of this encounter Care Teams Heat Sealing Machine Operator Relationship Specialty Start Date End Date Elizabeth Samaniego MD [address] [place] [address] [email or web address] PCP - General 07/02/17 Zeina Rueda DO [address] [place] [address] [email or web address] Historical LMR Provider 05/23/17 Rainer Mendez MD [address] [place] [address] [email or web address] Historical LMR Provider 05/23/17 Daniella Villeda FNP [address] [place] [address] Historical LMR Provider 05/23/17 Maya Wilson MD [address] [place] [address] [email or web address] Historical LMR Provider 05/23/17 Elizabeth Samaniego MD [address] [place] [address] [email or web address] Historical LMR Provider 05/23/17 Elizabeth Samaniego MD [address] [place] [address] [email or web address] Insurance Assigned Provider 11/07/2302/06/24 documented as of this encounter Additional Source Comments The information contained in this document represents components of the legal health record. It is not the complete legal health record.[facility]
--- OUTSIDE RECORDS SUMMARY | 2025-06-14 18:00 | XMS_ITS | Clinical Summary ---
Author Organization [facility] Address [address] [address] Phone Care Team Providers Care Business Taxes Specialist Name Role Phone Zeina Rueda Carlos NGUYEN Unavailable Rainer Mendez MD Unavailable Daniella VilledaP Unavailable Maya Wilson MD Unavailable Elizabeth Samaniego MD Unavailable Elizabeth Samaniego MD Primary Care Provider Allergies No known active allergies Medications omeprazole (PRILOSEC) 20 MG tablet Take 20 mg by mouth daily. Active oxybutynin (DITROPAN-XL) 10 MG 24 hr tabletIndications :Medication refill TAKE 1 & 1/2 TABLETS BY MOUTH ONCE DAILY 135 tablet 2 08/14/19 23 Active buPROPion (WELLBUTRIN XL) 300 MG ER 24 hr tabletIndications :Generalized anxiety disorder TAKE 1 TABLET (300 MG TOTAL) BY MOUTH EVERY MORNING. 90 tablet 3 06/13/20 24 Active propranoloL (INDERAL) 10 MG immediate release tabletIndications :Generalized anxiety disorder Take 1 tablet (10 mg total) by mouth nightly at bedtime as needed (can use 2 pills at once if needed for anxiety). 10 tablet 1 12/24/19 25 Active betamethasone dipropionate 0.05 % ointmentIndicatio ns:Rash and other nonspecific skin eruption Apply topically 2 (two) times a day. Rash on leg. Use for 10 days at a time. 60 g 1 12/24/19 25 Active alfuzosin (UROXATRAL) 10 mg 24 hr tabletIndications :Benign prostatic hyperplasia with urinary frequency Take 1 tablet (10 mg total) by mouth daily. 90 tablet 3 12/24/19 25 Active clonazePAM (KLONOPIN) 0.5 MG tabletIndications :Anxiety state Take 1 tablet (0.5 mg total) by mouth 2 (two) times a day as needed for anxiety. 15 tablet 1 02/17/20 25 Active rosuvastatin (CRESTOR) 10 MG tabletIndications :Mixed hyperlipidemia Take 1 tablet (10 mg total) by mouth daily. 90 tablet 1 03/03/20 25 Active sertraline (ZOLOFT) 100 MG tabletIndications :Generalized anxiety disorder TAKE 1 TABLET BY MOUTH EVERY DAY 90 tablet 3 06/12/20 25 Active gabapentin (NEURONTIN) 300 MG capsuleIndication s:Medication refill TAKE 1 CAPSULE BY MOUTH IN THE MORNING, THEN 1 CAPSULE AT NOON, AND 3 CAPSULES AT NIGHT. 450 capsule 06/15/20 25 Active sertraline (ZOLOFT) 100 MG tabletIndications :Generalized anxiety disorder Take 1 tablet (100 mg total) by mouth daily. 90 tablet 1 12/24/19 25 025 Discontinued gabapentin (NEURONTIN) 300 MG capsuleIndication s:Medication refill TAKE 1 CAPSULE BY MOUTH IN THE MORNING, THEN 1 CAPSULE AT NOON, AND 3 CAPSULES AT NIGHT. 450 capsule 03/17/20 25 025 Discontinued Active Problems Problem Noted Date Diagnosed Date [...] do psa and meds His dad had UT so think about stress test of CAC [...] shows L5/S1 nerve root stenosis. Injections with [facility] and sports were not helpful. We will refer him to [facility] pain management, and try physical therapy. [...] towards needing replacement and he is seeing [facility] - scheduled 07/2019 but could not do this based on insurance He now needs this at [facility] but this has been postponed due [...] I gave guidance regarding rest, fluids and [id number] medication as needed. I informed him that [...] issues or concerns. 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) [...] Encounters Date Type Department Care Team Description 06/13/2025 Orders Only [facility] Otology [facility] [address] [facility] 2nd [place] [address] Virginie Matt Hearing loss, unspecified hearing loss type, unspecified laterality (Primary Dx) 06/12/[address] [address] Elizabeth Samaniego MD Medication Refill 06/11/[address] [address] Elizabeth Samaniego MD Medication Refill 05/23/2025 5:15 PM EDT Office Visit [facility] [address] [place] [address] [place] [address] Elizabeth Samaniego MD Yount, Elizabeth B, PT Lumbar back pain with radiculopathy affecting left lower extremity (Primary Dx) 04/28/2025 Orders Only [address] [address] Jeffrey Humphreys MD 04/25/2025 9:00 AM EDT Office Visit [facility] [address] [place] [address] Elizabeth Samaniego MD Yount, Elizabeth B, PT Lumbar back pain with radiculopathy affecting left lower extremity (Primary Dx) 04/18/2025 1:30 PM EDT Office Visit [facility] [address] [place] [address] Elizabeth Samaniego MD Yount, Elizabeth B, PT Lumbar back pain with radiculopathy affecting left lower extremity (Primary Dx) 03/28/2025 10:30 AM EDT Office Visit [facility] [address] [place] [address] Elizabeth Samaniego MD Yount, Elizabeth B, PT Lumbar back pain with radiculopathy affecting left lower extremity (Primary Dx) 03/21/2025 1:30 PM EDT Office Visit [facility] [address] [place] [address] Elizabeth Samaniego MD Yount, Elizabeth B, PT Lumbar back pain with radiculopathy affecting left lower extremity (Primary Dx) 03/17/[address] [address] Ant Mcmahon, DO Medication Refill 03/14/2025 1:30 PM EDT Office Visit [address] [place] [address] Elizabeth Samaniego MD Yount, Elizabeth B, PT Lumbar back pain with radiculopathy affecting left lower extremity (Primary Dx) from Last 3 Months Immunizations Immunization Administration Dates Next Due Hepatitis A, Adult 12/11/2020,06/08/2020 Hepatitis B Adult 09/03/1992,04/10/1992,03/13/19 92 Influenza Quadrivalent Prese rvative Free IM 04/29/2018 Influenza Trivalent MDCK Pre servative Free IM 05/01/2025 Influenza, Unspecified Formulation 05/08,05/03/2022,04/17/2020,04/24 MMR 12/23/2024,10/27/2024,02/16/1992 Pneumococcal [...] Status Comments Brother Alive Father (Age 61) UT age 61 Mother Paternal Grandfather Sister 1 [...] 06/20/2025 12:15 PM EST Evaluation [facility] [address] 2nd Floor [place] [id number] Heide Fried, Sebastian [address] [place] [address] [email or web address] 06/20/2025 1:00 PM EST Office Visit [facility] Otology [place] [address] [facility] 2nd [place] [address] Joe Alonzo MD 243 [place] [address] [email or web address] 06/28/2025 7:15 AM EST Office Visit [facility] [address] [facility] 3rd [facility], [address] [place] [address] Chris [place] DO [address] [facility] [address] [place] [address] [email or web address] Health Maintenance Due Date Last Done Comments COLOGUARD 2005 FIT TEST 2005 FOBT 2005 SIGMOIDOSCOPY 2005 VIRTUAL COLONOSCOPY 2005 DEPRESSION SCREENING 12/22/2025 12/22/2024 PNEUMOCOCCAL VACCINES (50+ [...] this topic ZOSTER VACCINES Completed 12/11/2020, 06/08/2020 RSV VACCINE Completed 06/23/2024 SMOKING STATUS SCREENING (Once After 26 Yrs) Completed 11/03/2024 COVID-19 VACCINE Completed 05/01/2025, , 06/02/2022, Additional history exists INFLUENZA VACCINE Completed 05/01/2025, , 05/03/2022, Additional history exists HIB VACCINES Aged Out No longer eligi ble based on patient's age to complete this topic IPV VACCINES Aged Out No longer eligi ble based on patient's age to complete this topic MENINGOCOCCAL VACCINES (ACWY) Aged Out No longer eligible based on patient's age to complete this topic MENINGOCOCCAL VACCINES (B) Aged Out N o longer eligible based on patient's age to complete this topic Medical Devices Not on file Procedures Procedure Name Priority Date/Time Associated Diagnosis Comments OUTSIDE MR IMAGING REPORT ONLY Routine 04/28/2025 9:46 AM EDT OUTSIDE MR IMAGING REPORT ONLY Routine 04/28/2025 9:29 AM EDT LIPID PANEL Routine 12/23/2024 9:19 AM EDT Routine general medical examination at a [facility] facility COLONOSCOPY FOR RESULT ENTRY ONLY Routine 01/29/2023 from Last 3 Months or Most Recently Relevant to Health Maintenance Results * Outside MR Imaging Report Only (04/28/2025 9:46 AM EDT) us Historical Provider MD DOUGHERTY MR Final Res ult * Outside MR Imaging Report Only (04/28/2025 9:29 AM EDT) us Historical Provider MD DOUGHERTY MR Final Res ult * (ABNORMAL) Lipid panel (12/23/2024 9:19 AM EDT) HDL 53 mg/dL [facility] Comment: Interpretation <40 mg/dL: Low HDL cholesterol (major risk factor for CHD) Greater than or equal to 60 mg/dL: High HDL cholesterol ( negative risk factor for CHD) HDL - cholesterol is affected by a number of factors, e.g. smoking, excerise, hormones, sex and age. CHOLESTEROL 218 0 - 240 mg/dL [facility] TRIGLYCERIDES 99 30 - 160 mg/dL [facility] LDL 145(H) 50 - 129 mg/dL [facility] Comment: LDL levels in terms of risk for coronary heart disease: <100 mg/dL: Optimal 100-129 mg/dL: Near or above optimal 130-159 mg/dL: Borderline high 160-189 mg/dL: High >190 mg/dL: Very High CARDIAC RISK RATIO 4.1 3.4 - 5.0 [facility] Blood 12/23/2024 9:19 AM EDT 12/23/2024 9:25 AM EDT us Elizabeth Samaniego MD LAB BLOOD BKR ORDERABLES Fin al Result [facility] [address] [place] [address] * COLONOSCOPY FOR RESULT ENTRY ONLY (01/29/2023) us Historical Provider HEALTH MAINTENANCE Final Result from Last 3 Months or Most Recently Relevant to Health Maintenance Insurance [facility] PPO PHCS Advance Directives For more information, please contact: [phone] (9AM - 5PM [facility], Thursday-Thursday) Documents on File Type Date Recorded Patient Collar Stitcher Expl anation Advance Directive - Non Epic LMR 02/02/2015 12:00 AM Care Teams Business Taxes Specialist Relationship Specialty Start Date End Date Elizabeth Samaniego MD [address] [facility], [address] [place] [address] PCP - General 07/02/17 Zeina Rueda DO [address] [facility], [address] [place] [address] Historical LMR Provider 05/23/17 Rainer Mendez MD [address] [place] [phone] [email or web address] Historical LMR Provider 05/23/17 Daniella Villeda FNP [address] [place] [address] 7 [place] [address] [email or web address] Historical LMR Provider 05/23/17 Maya Wilson MD [address] [place] [address] 7 [place] [address] [email or web address] Historical LMR Provider 05/23/17 Elizabeth Samaniego MD [address] [place] [address] 7 [place] [address] [email or web address] Historical LMR Provider 05/23/17 Additional Source Comments The information contained in this document represents components of the legal health record. It is not the complete legal health record.[facility]
--- OUTSIDE RECORDS SUMMARY | 2025-06-14 18:00 | XMS_ITS | Encounter Summary ---
Author Organization [facility] Address [address] [address] Phone Care Team Providers Care Piece Work Checker Name Role Phone Petra Murillo Unavailable [phone] Alissa Young NP Unavailable Zeina Rueda DO Unavailable Rainer Mendez MD Unavailable Jorge Hale DO Unavailable Daniella VilledaP Unavailable Louis Johnson MD Unavailable Maya Wilson MD Unavailable [phone] Dexter Lamb MD Unavailable Elizabeth Samaniego [...] Expiration Date Visits Re quested Visits Authorized [id number] Closed 09/22/2017 11/21/2017 1 1 Encounter Details Date Type Department Care Team (Late st Contact Info) Description 09/22/2017 Ancillary Orders Virtual Department 30 [place] [address] Doris Sanchez PA 10 [place] [address] Acute lower GI hemorrhage Social History Tobacco [...] [facility] [place] [address] [address] Heide Fried AuD [address] [place] [address] [email or web address] 06/20/2025 1:00 PM EST Office Visit [facility] [place] [address] [address] Joe Alonzo MD [address] [place] [address] [email or web address] 06/28/2025 7:15 AM EST Office Visit [facility] [address] [place] [address] 3rd Floor, [address] [place] [address] Chris [place], DO [address] [address] [email or web address] documented as of this encounter Results * [...] documented as of this encounter Care Teams Piece Work Checker Relationship Specialty Start Date End Date Elizabeth Samaniego MD [address] [facility] 7 [place] [address] PCP - General 07/02/17 Petra Murillo PA [facility] [place] [address] Historical LMR Provider 05/23/17 2 Alissa Young LINUX PROGRAMMER 1 [place] [address] Historical LMR Provider 05/23/17 2 Zeina Rueda DO [address] [facility] 7 [place] [address] Historical LMR Provider 05/23/17 Rainer Mendez MD 4 [place] [address] [email or web address] Historical LMR Provider 05/23/17 Jorge Hale DO [address] [place] [address] Orthopedics & Sports Medicine, [place] [address] Historical LMR Provider 05/23/17 08/10/21 Daniella Villeda FNP [address] [place] [address] 7 [place] [address] [email or web address] Historical LMR Provider 05/23/17 Louis Johnson MD [address] [place] [address], 2nd [place] [address] Historical LMR Provider 05/23/17 08/10/21 Maya Wilson MD [address] [place] [address] 7 [place] [address] [email or web address] Historical LMR Provider 05/23/17 Dexter Lamb MD [address] [place] [phone] Historical LMR Provider 05/23/17 2 Elizabeth Samaniego MD [address] [place] [address] 7 [place] [address] [email or web address] Historical LMR Provider 05/23/17 Pilo Haro MD [address] [place], [place] [address] [place] [address] [email or web address] Historical LMR Provider 05/23/17 08/10/21 Elizabeth Samaniego MD [address] [place] [address], [address] [place] [address] [email or web address] Insurance Assigned Provider 11/07/2302/06/24 documented as of this encounter Additional Source Comments The information contained in this document represents components of the legal health record. It is not the complete legal health record.[facility]
--- OUTSIDE RECORDS SUMMARY | 2025-06-14 18:00 | XMS_ITS | Encounter Summary ---
Author Organization [facility] Address [address] [facility] [address] [place] [address] Phone Care Team Providers Care Project Facilitator Name Role Phone Zeina Rueda Unavailable [phone] Rainer Mendez MD Unavailable Daniella VilledaP Unavailable Maya Wilson MD Unavailable [phone] Elizabeth Samaniego MD Unavailable [phone] Elizabeth Samaniego MD Primary Care Provider [phone] Reason for Visit * Reason Comments Medication Refill Encounter Details Date Type Department Care Team (Late st Contact Info) Description 06/11/2025 Refill [facility] Medicine [address] [place], [place] [phone] Elizabeth Samaniego MD [address] [facility] [address] [place], [place] [phone] [email or web address] Medication Refill Social History Tobacco Use Types Packs/Day Years [...] as of this encounter Progress Notes * Katerina Larson MA - 06/12/2025 1:02 PM EST Rx Care Gap Status - Instructions for Clinical Staff (prescriber discretion applies): > Mismatch review guide > No future appt: Please schedule if appropriate. Visit Info Last visit: 12/23/2024 Elizabeth Samaniego MD - Family Medicine [facility] > Requested f/u: Not specified Upcoming visit: None ACTIONS TAKEN BY Katerina Larson MAMAC - Criteria met. Antidepressant / Anxiolytics (Non-Benzodiazepine) Rx Protocol - sertraline HCl Criteria met; renew for up to 12 months. Visit in the past 14 months: Yes documented in this encounter Plan of Treatment Upcoming Encounters Date Type Department Care Team (Late st Contact Info) Description 06/20/2025 12:15 PM EST Evaluation [facility] [address] [address] Heide Fried AuD [address] [place] [address] [email or web address] 06/20/2025 1:00 PM EST Office Visit [facility]ology [address] [address] Joe Alonzo MD 243 [place] [address] [email or web address] 06/28/2025 7:15 AM EST Office Visit [facility] [address] [place] [address], [address] [place] [address] Chris [place] DO [address] [place] [address] [email or web address] documented as of this encounter Visit Diagnoses Diagnosis Generalized anxiety disorder documented in this encounter Additional Health Concerns Assessment Noted Time PHQ-2 Depression Total Score: 1 12/23/19 25 9:57 PM EDT documented as of this encounter Care Teams Project Facilitator Relationship Specialty Start Date End Date Elizabeth Samaniego MD [address] [place] [address] [email or web address] PCP - General 07/02/17 Zeina Rueda DO [address] [place] [address] [email or web address] Historical LMR Provider 05/23/17 Rainer Mendez MD [address] [place] [address] [email or web address] Historical LMR Provider 05/23/17 Daniella Villeda FNP [address] [place] [address] [email or web address] Historical LMR Provider 05/23/17 Maya Wilson MD [address] [place] [address] [email or web address] Historical LMR Provider 05/23/17 Elizabeth Samaniego MD [address] [place] [address] [email or web address] Historical LMR Provider 05/23/17 documented as of this encounter Additional Source Comments The information contained in this document represents components of the legal health record. It is not the complete legal health record.[facility]
--- OUTSIDE RECORDS SUMMARY | 2025-06-14 18:00 | XMS_ITS | Encounter Summary ---
Author Organization [facility] Address [address] [facility] [address] [place] [address] Phone Care Team Providers Care Electric Well Logging Operator Name Role Phone Zeina Rueda Unavailable [phone] Rainer Mendez MD Unavailable Daniella VilledaP Unavailable [phone] Maya Wilson MD Unavailable [phone] Elizabeth Samaniego MD Unavailable [phone] Elizabeth Samaniego MD Primary Care Provider [phone] Reason for Visit * Reason Comments Medication Refill Encounter Details Date Type Department Care Team (Late st Contact Info) Description 06/12/2025 Refill [facility] Medicine [address] [place], [place] [phone] Elizabeth Samaniego MD [address] [facility] [address] [place], [place] [phone] [email or web address] Medication Refill Social History Tobacco Use Types [...] high school, GED, job training, learning the [place] language, technical skills, or developing parenting skills)? [...] Notes * Katerina Larson MA - 06/12/2025 3:00 PM EST Images from the original note were not included. Rx Care Gap Status - Instructions for Clinical Staff (prescriber discretion applies): > Mismatch review guide > No future appt: Please schedule if appropriate. > Check PDMP for all controlled medication requests. Visit Info Last visit: 12/23/2024 Elizabeth Samaniego MD - Family Medicine [facility] > Requested f/u: Not specified Upcoming visit: None ACTIONS TAKEN BY Katerina Larson MAMAC - Checked PDMP/MassPAT. Antiepileptic Without Labs Rx Protocol - gabapentin Criteria met; renew for up to 12 months. Visit in the past 14 months: Yes Non-Opioid Controlled Substance With PDMP Rx Protocol - gabapentin Renewal is at prescriber discretion. Visit in the past 12 months: Yes documented in this encounter Plan of Treatment Upcoming Encounters Date Type Department Care Team (Late st Contact Info) Description 06/20/2025 12:15 PM EST Evaluation [facility] Aud[facility] [address] [address] Heide Fried AuD [address] [place] [address] [email or web address] 06/20/2025 1:00 PM EST Office Visit [facility] Ot[facility] [address] [address] Joe Alonzo MD [address] [place] [address] [email or web address] 06/28/2025 7:15 AM EST Office Visit [facility] [address] [facility] 3rd Floor, [address] [place] [address] Chris [place] DO [address] [facility] [address] [place] [address] [email or web address] documented as of this encounter Visit Diagnoses Diagnosis Medication refill Issue of repeat prescriptions documented in this encounter Additional Health Concerns Assessment Noted Time PHQ-2 Depression Total Score: 1 12/23/19 25 9:57 PM EDT documented as of this encounter Care Teams Electric Well Logging Operator Relationship Specialty Start Date End Date Elizabeth Samaniego MD [address] [place] [address] [email or web address] PCP - General 07/02/17 Zeina Rueda DO [address] [place] [address] [email or web address] Historical LMR Provider 05/23/17 Rainer Mendez MD [address] [place] [address] [email or web address] Historical LMR Provider 05/23/17 Daniella Villeda FNP [address] [place] [address] [email or web address] Historical LMR Provider 05/23/17 Maya [place] MD [address] [place] [address] [email or web address] Historical LMR Provider 05/23/17 Elizabeth Samaniego MD [address] [place] [phone] (work) [email or web address] Historical LMR Provider 05/23/17 documented as of this encounter Additional Source Comments The information contained in this document represents components of the legal health record. It is not the complete legal health record.[facility]
--- OUTSIDE RECORDS SUMMARY | 2025-06-14 18:00 | XMS_ITS | Encounter Summary ---
Author Organization [facility] Address [address] [facility] [address] [place] [address] Phone Care Team Providers Care Optoelectronics Engineer Name Role Phone Petra Murillo Unavailable [phone] Alissa Young CONVENTION SERVICES MANAGER Unavailable [phone] Zeina Rueda DO Unavailable [phone] Rainer Mendez MD Unavailable Jorge Hale DO Unavailable Daniella Villeda PERSONNEL SCHEDULER Unavailable Louis Johnson MD Unavailable Maya Wilson MD Unavailable Dexter Lamb MD Unavailable [phone] Elizabeth Samaniego MD Unavailable Pilo Haro MD Unavailable Elizabeth Samaniego MD Primary Care Provider [phone] Elizabeth Samaniego MD Unavailable Encounter Details Date Type Department Care Team (Late st Contact Info) Description 09/22/2017 Procedure Pass [facility], Ct Scan - [address] [address] Social History Tobacco Use Types Packs/Day Years [...] Evaluation [facility] Audiology [address] [address] Heide Fried AuD [address] [place] [address] [email or web address] 06/20/2025 1:00 PM EST Office Visit [facility] Otology [address] [address] Joe Alonzo MD [address] [place] [address] [email or web address] 06/28/2025 7:15 AM EST Office Visit [facility] [address] [place] [address], [address] [place] [address] Chris Jackson DO [address] [place] [address] [place] [address] [email or web address] documented as of this encounter Visit Diagnoses Not on filedocumented in this encounter Additional Health Concerns Infection Onset Date Last Indicated Resolved Time CoV-Risk 08/13/2020 08/13/2020 08/23/2020 1:25 AM EST CoV-Risk Comment:Per Ambulatory Triage Form 03/16/2024 03/16/202403/27 1:22 AM EDT documented as of this encounter Care Teams Optoelectronics Engineer Relationship Specialty Start Date End Date Elizabeth Samaniego MD [address] [place] [address] 7 [place] [address] [email or web address] PCP - General 07/02/17 Petra Murillo PA [facility] [place] [address] Historical LMR Provider 05/23/17 2 Alissa Young NP [address] [place] [address] Historical LMR Provider 05/23/17 2 Zeina Rueda DO [address] [place] [address] 7 [place] [address] Historical LMR Provider 05/23/17 Rainer Mendez MD [address] [place] [address] [email or web address] Historical LMR Provider 05/23/17 Jorge Hale DO [address] [place] [address] [facility], [place] [address] Historical LMR Provider 05/23/17 08/10/21 Daniella Villeda FNP [address] [place] [address] 7 [place] [address] [email or web address] Historical LMR Provider 05/23/17 Louis Johnson MD [address] [place] [address], 2nd [place] [address] [email or web address] Historical LMR Provider 05/23/17 08/10/21 Maya Wilson MD [address] [place] [address] 7 [place] [address] [email or web address] Historical LMR Provider 05/23/17 Dexter Lamb MD [address] [place] [address] 7 [place] [address] Historical LMR Provider 05/23/17 2 Elizabeth Samaniego MD [address] [place] [address] 7 [place] [address] [email or web address] Historical LMR Provider 05/23/17 Pilo Haro MD [address] [place], [place] [address] [place] [address] [email or web address] Historical LMR Provider 05/23/17 08/10/21 Elizabeth Samaniego MD [address] [place] [address] 7 [place] [address] [email or web address] Insurance Assigned Provider 11/07/2302/06/24 documented as of this encounter Additional Source Comments The information contained in this document represents components of the legal health record. It is not the complete legal health record.[facility]
--- OUTSIDE RECORDS SUMMARY | 2025-06-14 18:00 | XMS_ITS | Encounter Summary ---
Author Organization [facility] Address [address] [address] Phone Care Team Providers Care Vocational Rehabilitation Counselor Name Role Phone Petra Murillo Unavailable [phone] Alissa Young MIXER HELPER Unavailable Zeina Rueda DO Unavailable Rainer Mendez MD Unavailable Jorge Hale DO Unavailable Daniella Villeda LAST MARKER Unavailable Louis Johnson MD Unavailable Maya Wilson MD Unavailable [phone] Dexter Lamb MD Unavailable [phone] Elizabeth Samaniego MD Unavailable Pilo Haro MD Unavailable [phone] Elizabeth Samaniego MD Primary Care Provider Elizabeth Samaniego MD Unavailable [phone] Encounter Details Date Type Department Care Team (Late st Contact Info) Description 07/05/2019 Procedure Pass [facility] [address] [place] [address] Social History Tobacco Use Types [...] Info) Description 06/20/2025 12:15 PM EST Evaluation [facility] Audiology [address] [address] Heide Fried AuD [address] [place] [address] [email or web address] 06/20/2025 1:00 PM EST Office Visit [facility] Otology [address] [address] Joe Alonzo MD [address] [place] [address] [email or web address] 06/28/2025 7:15 AM EST Office Visit [facility] [address] [place] [address], [address] [place] [address] Chris Jackson DO [address] [place] [address] [place] [address] [email or web address] documented as of this encounter Visit Diagnoses Not on filedocumented in this encounter Additional Health Concerns Infection Onset Date Last Indicated Resolved Time CoV-Risk 08/13/2020 08/13/2020 08/23/2020 1:25 AM EST CoV-Risk Comment:Per Ambulatory Triage Form 03/16/2024 03/16/202403/27 1:22 AM EDT documented as of this encounter Care Teams Vocational Rehabilitation Counselor Relationship Specialty Start Date End Date Elizabeth Samaniego MD [address] [place] [address] [address] [place] [address] [email or web address] PCP - General 07/02/17 Petra Murillo PA [facility] [place] [address] Historical LMR Provider 05/23/17 2 Alissa Young NP [address] [place] [address] Historical LMR Provider 05/23/17 2 Zeina Rueda DO [address] [place] [address] [address] [place] [address] Historical LMR Provider 05/23/17 Rainer Mendez MD [address] [place] [address] [email or web address] Historical LMR Provider 05/23/17 Jorge Hale DO [address] [place] [address] [facility], [place] [address] [email or web address] Historical LMR Provider 05/23/17 08/10/21 Daniella Villeda FNP [address] [place] [address] [address] [place] [address] [email or web address] Historical LMR Provider 05/23/17 Louis Johnson MD [address] [facility], 2nd [place] [address] Historical LMR Provider 05/23/17 08/10/21 Maya Wilson MD [address] [place] [address] 7 [place] [address] [email or web address] Historical LMR Provider 05/23/17 Dexter Lamb MD [address] [place] [address] 7 [place] [id number] Historical LMR Provider 05/23/17 2 Elizabeth Samaniego MD [address] [place] [address] 7 [place] [address] [email or web address] Historical LMR Provider 05/23/17 Pilo Haro MD [address] [place], [place] [address] [place] [address] [email or web address] Historical LMR Provider 05/23/17 08/10/21 Elizabeth Samaniego MD [address] [place] [address] 7 [place] [address] [email or web address] Insurance Assigned Provider 11/07/2302/06/24 documented as of this encounter Additional Source Comments The information contained in this document represents components of the legal health record. It is not the complete legal health record.[facility]
--- OUTSIDE RECORDS SUMMARY | 2025-06-14 18:00 | XMS_ITS | Encounter Summary ---
Author Organization [facility] Address [address] [address] Phone Care Team Providers Care International Banker Name Role Phone Petra Murillo Unavailable [phone] Alissa Young NP Unavailable [phone] Zeina Rueda DO Unavailable Rainer Mendez MD Unavailable Jorge Hale DO Unavailable Daniella VilleadP Unavailable Louis Johnson MD Unavailable Maya Wilson MD Unavailable Dexter Lamb MD Unavailable [phone] Elizabeth Samaniego MD Unavailable Pilo Haro MD Unavailable [phone] Elizabeth Samaniego MD Primary Care Provider Elizabeth Samaniego MD Unavailable [phone] Encounter Details Date Type Department Care Team (Latest Contact Info) Description 09/25/2017 Transcribe Orders [facility] [address] [place] [address] Doris Sanchez PA 10 [place] [address] Routine general medical examination at a health [...] Info) Description 06/20/2025 12:15 PM EST Evaluation [facility] [place] [address] [address] Heide Fried AuD [address] [place] [address] [email or web address] 06/20/2025 1:00 PM EST Office Visit [facility] Otology [address] [address] Joe Alonzo MD [address] [place] [address] [email or web address] 06/28/2025 7:15 AM EST Office Visit [facility] [address] [place] [address] 3rd Floor, [address] [place] [address] Chris Jackson DO [address] [place] [address] [place] [address] [email or web address] documented as of this encounter Results * PT-INR (09/25/2017 12:55 PM EST) PT 11.5 10.2 - 12.9 sec [facility] INR 1.0 0.9 - 1.1 [facility] Comment:Therapeutic range fo r oral Vitamin K antagonists: 2.0-3.5 Blood 09/25/2017 12:5 5 PM EST 09/25/2017 12:58 PM EST us Doris LAST LAB BLOOD BKR ORDERABLES Fi nal Result Performing Organization Address [facility] Co de Phone Number [address] [address] * Ferritin (09/25/2017 12:55 PM EST) FERRITIN 67 30 - 400 ug/L [facility] Blood 09/25/2017 12:5 5 PM EST 09/25/2017 12:58 PM EST us Doris LAST LAB BLOOD BKR ORDERABLES Fi nal Result Performing Organization Address [facility] Phone Number [address] [address] * C-Reactive Protein (09/25/2017 12:55 PM EST) C REACTIVE PROTEIN 0.1 0 - 0.5 mg/L [facility] Blood 09/25/2017 12:5 5 PM EST 09/25/2017 12:58 PM EST Doris LAST LAB BLOOD BKR ORDERABLES Fi nal Result Performing Organization Address [facility] Co de Phone Number [address] [address] * (ABNORMAL) CBC and differential (09/25/2017 12:55 PM EST) WBC 4.74 3.40 - 11.20 K/uL [facility] RBC 4.74 4.50 - 5.50 M/uL [facility] HGB 13.7 13.0 - 17.0 g/dL [facility] HCT 40.9 40.0 - 51.0 % [facility] PLT 235 130 - 400 K/uL [facility] MCV 86.3 79.0 - 98.0 fL [facility] MCH 28.9 27.0 - 34.8 pg [facility] MCHC 33.5 31.5 - 36.0 g/dL [facility] RDW 12.6 10.8 - 14.6 % [facility] MPV 9.5 9.4 - 12.4 fl [facility] NRBC 0.00 /100 WBCs [facility] ABSOLUTE NRBC 0.00 K/uL [facility] DIFF METHOD Auto [facility] NEUTS 45.2(L) 45.30 - 77.70 % [facility] LYMPHS 37.8 12.30 - 39.70 % [facility] MONOS 12.2 4.10 - 12.80 % [facility] EOS 4.0 0 - 7.2 % [facility] BASOS 0.6 0 - 2.80 % [facility] Granulocytes, immature (%) 0.2 0.0 - 0.9 % [facility] ABSOLUTE NEUTS 2.14 1.40 - 7.70 K/uL [facility] ABSOLUTE LYMPHS 1.79 0.60 - 3.20 K/uL [facility] ABSOLUTE MONOS 0.58 0.11 - 0.59 K/uL [facility] ABSOLUTE EOS 0.19 0.01 - 0.50 K/uL [facility] ABSOLUTE BASOS 0.03 0.00 - 0.08 K/uL [facility] Granulocytes, immature 0.01 0.00 - 0.05 K/uL [facility] Blood 09/25/2017 12:5 5 PM EST 09/25/2017 12:58 PM EST us Doris LAST LAB BLOOD BKR ORDERABLES Fi nal Result [address] [address] documented in this encounter Visit Diagnoses Diagnosis Routine general medical examination at a health care facility- Primary documented in this encounter Additional Health Concerns Infection Onset Date Last Indicated Resolved Time CoV-Risk 08/13/2020 08/13/2020 08/23/2020 1:25 AM EST CoV-Risk Comment:Per Ambulatory Triage Form 03/16/2024 03/16/202403/27 1:22 AM EDT documented as of this encounter Care Teams International Banker Relationship Specialty Start Date End Date Elizabeth Samaniego MD [address] [place] [address] 7 [place] [address] [email or web address] PCP - General 07/02/17 Petra Murillo PA [facility] [place] [address] Historical LMR Provider 05/23/17 2 Alissa Young CUSTOMER GREETER [address] [place] [address] Historical LMR Provider 05/23/17 2 Zeina Rueda DO [address] [place] [address] [email or web address] Historical LMR Provider 05/23/17 Rainer Mendez MD [address] [place] [address] [email or web address] Historical LMR Provider 05/23/17 Jorge Hale DO [address] [place] [address] [facility] Sports Medicine, [place] [address] [email or web address] Historical LMR Provider 05/23/17 08/10/21 Daniella Villeda FNP [address] [place] [address] [email or web address] Historical LMR Provider 05/23/17 Louis Johnson MD 22 [facility], 2nd [place] [address] Historical LMR Provider 05/23/17 08/10/21 Maya Wilson MD [address] [place] [address] 7 [place] [address] [email or web address] Historical LMR Provider 05/23/17 Dexter Lamb MD [address] [place] [phone] Historical LMR Provider 05/23/17 2 Elizabeth Samaniego MD [address] [place] [address] 7 [place] [address] [email or web address] Historical LMR Provider 05/23/17 Pilo Haro MD [address] [place], [place] [address] [place] [address] [email or web address] Historical LMR Provider 05/23/17 08/10/21 Elizabeth Samaniego MD [address] [place] [address] 7 [place] [address] [email or web address] Insurance Assigned Provider 11/07/2302/06/24 documented as of this encounter Additional Source Comments The information contained in this document represents components of the legal health record. It is not the complete legal health record.[facility]
--- OUTSIDE RECORDS SUMMARY | 2025-06-14 18:00 | XMS_ITS | Encounter Summary ---
Author Organization [facility] Address [address] [facility] [address] [place] [address] Phone Care Team Providers Care Filling Hauler Weaving Name Role Phone Petra Murillo Unavailable [phone] Alissa Young NP Unavailable [phone] Zeina Rueda DO Unavailable Rainer Mendez MD Unavailable Jorge Hale DO Unavailable Daniella VilledaP Unavailable Louis Johnson MD Unavailable Maya Wilson MD Unavailable Dexter Lamb MD Unavailable Elizabeth Samaniego MD Unavailable Pilo Haro MD Unavailable Elizabeth Samaniego MD Primary Care Provider Elizabeth Samnaiego MD Unavailable Encounter Details Date Type Department Care Team (Late st Contact Info) Description 08/22/2019 Ancillary Orders [facility], X-Ray - [address] [address] Callie Alvarado, FINISHING SUPERVISOR PLASTIC SHEETS [address] [place] [phone] [email or web address] Left shoulder pain, unspecified chronicity Social History [...] Info) Description 06/20/2025 12:15 PM EST Evaluation [facility] Audiology [address] [address] Heide Fried AuD [address] [place] [address] [email or web address] 06/20/2025 1:00 PM EST Office Visit [facility] Otology [address] [address] Joe Alonzo MD [address] [place] [address] [email or web address] 06/28/2025 7:15 AM EST Office Visit [facility] [address] [place] [address], [address] [place] [address] Chris Jackson DO [address] [place] [address] [email or web address] documented as of this encounter Results * [...] joint. POS - [id number] us Callie Alvarado FINISHING SUPERVISOR PLASTIC SHEETS IMG XR UPPER EXTREMITY Final Res ult documented in this encounter Visit Diagnoses Diagnosis Left shoulder pain, unspecified chronicity Left shoulder pain, unspecified chronicity documented in this encounter Additional Health Concerns Infection Onset Date Last Indicated Resolved Time CoV-Risk 08/13/2020 08/13/2020 08/23/2020 1:25 AM EST CoV-Risk Comment:Per Ambulatory Triage Form 03/16/2024 03/16/202403/27 1:22 AM EDT documented as of this encounter Care Teams Filling Hauler Weaving Relationship Specialty Start Date End Date Elizabeth Samaniego MD [address] [place] [address], [facility] 7 [place] [address] PCP - General 07/02/17 Petra Murillo [place] [address] Historical LMR Provider 05/23/17 2 Alissa Young NP 1 [place] [address] Historical LMR Provider 05/23/17 2 Zeina Rueda DO [address] [place] [address] 7 [place] [address] [email or web address] Historical LMR Provider 05/23/17 Rainer Mendez MD [address] [place] [address] [email or web address] Historical LMR Provider 05/23/17 Jorge Hale DO [address] [place] [address] [facility] Sports Medicine, [place] [address] Historical LMR Provider 05/23/17 08/10/21 Daniella Villeda FNP [address] [place] [address] Historical LMR Provider 05/23/17 Louis Johnson MD [address] [place] [address], 2nd [place] [address] Historical LMR Provider 05/23/17 08/10/21 Maya Wilson MD [address] [place] [address] Historical LMR Provider 05/23/17 Dexter Lamb MD [address] [facility] 7 [place] [address] Historical LMR Provider 05/23/17 2 Elizabeth Samaniego MD [address] [place] [address] 7 [place] [address] [email or web address] Historical LMR Provider 05/23/17 Pilo Haro MD [address] [place], [place] [address] [place] [phone] [email or web address] Historical LMR Provider 05/23/17 08/10/21 Elizabeth Samaniego MD [address] [place] [address] 7 [place] [address] [email or web address] Insurance Assigned Provider 11/07/2302/06/24 documented as of this encounter Additional Source Comments The information contained in this document represents components of the legal health record. It is not the complete legal health record.[facility]
--- OUTSIDE RECORDS SUMMARY | 2025-06-14 18:00 | XMS_ITS | Encounter Summary ---
Author Organization [facility] Address [address] [facility] [address] [place] [address] Phone Care Team Providers Care Telephone Solicitor Supervisor Name Role Phone Petra Murillo Unavailable [phone] Alissa Young ADVANCED MANUFACTURING CONSULTANT Unavailable Zeina Rueda DO Unavailable Rainer Mendez MD Unavailable Jorge Hale DO Unavailable Daniella Villeda COW BUYER Unavailable Louis Johnson MD Unavailable Maya Wilson MD Unavailable Dexter Lamb MD Unavailable Elizabeth Samaniego MD Unavailable [phone] Pilo Haro MD Unavailable Elizabeth Samaniego MD Primary Care Provider Elizabeth Samaniego MD Unavailable Encounter Details Date Type Department Care Team (Late st Contact Info) Description 12/09/2020 Procedure Pass [facility], Ct Scan - [address] [address] Social History Tobacco Use Types Packs/Day Years [...] Evaluation [facility] [place] [address] [address] Heide Fried AuD [address] [place] [address] [email or web address] 06/20/2025 1:00 PM EST Office Visit [facility] [place] [address] [address] Joe Alonzo MD [address] [place] [address] [email or web address] 06/28/2025 7:15 AM EST Office Visit [facility], [address] [place] [address] Chris Jackson DO [address] [facility] [address] [place] [address] documented as of this encounter Visit Diagnoses Not on filedocumented in this encounter Additional Health Concerns Infection Onset Date Last Indicated Resolved Time CoV-Risk Comment:Per Ambulatory Triage Form 03/16/2024 03/16/202403/27 1:22 AM EDT Assessment Noted Time PHQ-2 Depression Total Score: 1 12/10/19 9:48 PM EDT documented as of this encounter Care Teams Telephone Solicitor Supervisor Relationship Specialty Start Date End Date Elizabeth Samaniego MD [address] [place] [address] 7 [place] [address] PCP - General 07/02/17 Petra Murillo PA [facility] [place] [address] Historical LMR Provider 05/23/17 2 Alissa Young NP 1 [place] [address] Historical LMR Provider 05/23/17 2 Zeina Rueda DO [address] [place] [address] 7 [place] [address] Historical LMR Provider 05/23/17 Rainer Mendez MD [address] [place] [address] [email or web address] Historical LMR Provider 05/23/17 Jorge Hale DO [address] [place] [address] [facility], [place] [address] Historical LMR Provider 05/23/17 08/10/21 Daniella Villeda FNP [address] [place] [address] [email or web address] Historical LMR Provider 05/23/17 Louis Johnson MD [address] [place] [address], [address] [place] [address] Historical LMR Provider 05/23/17 08/10/21 Maya Wilson MD [address] [place] [address] Historical LMR Provider 05/23/17 Dexter Lamb MD [address] [place] [phone] Historical LMR Provider 05/23/17 Elizabeth Estrada MD [address] [place] [address] Historical LMR Provider 05/23/17 Pilo Haro MD [address] [place] [address] [address] [place] [address] [email or web address] Historical LMR Provider 05/23/17 08/10/21 Elizabeth Samaniego MD [address] [place] [address] [address] [place] [address] [email or web address] Insurance Assigned Provider 11/07/2302/06/24 documented as of this encounter Additional Source Comments The information contained in this document represents components of the legal health record. It is not the complete legal health record.[facility]
--- OUTSIDE RECORDS SUMMARY | 2025-06-14 18:00 | XMS_ITS | Encounter Summary ---
Author Organization [facility] Address [address] [address] Phone Care Team Providers Care Drywall Foreman Name Role Phone Petra Murillo Unavailable [phone] Alissa Young TRUCKLOAD OWNER OPERATOR Unavailable [phone] Zeina Rueda DO Unavailable Rainer Mendez MD Unavailable Jorge Hale DO Unavailable Daniella Villeda ULTRASOUND TECH Unavailable Louis Johnson MD Unavailable Maya Wilson MD Unavailable Dexter Lamb MD Unavailable [phone] Elizabeth Samaniego MD Unavailable [phone] Pilo Haro MD Unavailable [phone] Elizabeth Samaniego MD Primary Care Provider Elizabeth Samaniego MD Unavailable [phone] Encounter Details Date Type Department Care Team (Latest Contact Info) Description 02/10/2018 Transcribe Orders [facility] [address] 2nd [place] [address] Nola Najera PA [address] [address] [email or web address] Benign prostatic hyperplasia without lower urinary tract [...] Upcoming Encounters Date Type Department Care Team ([facility] st Contact Info) Description 06/20/2025 12:15 PM EST Evaluation [facility] Audiology [address] [address] Heide Fried AuD [address] [place] [address] [email or web address] 06/20/2025 1:00 PM EST Office Visit [facility] Otology [address] [address] Joe Alonzo MD [address] [place] [address] [email or web address] 06/28/2025 7:15 AM EST Office Visit [facility] [address] [place] [address] 3rd [facility], [address] [place] [address] Chris Jackson DO [address] [place] [address] [place] [address] [email or web address] documented as of this encounter Results * PSA (screening) (02/10/2018 9:21 AM EDT) PSA 0.74 0 - 4.00 ng/mL [facility] Blood 02/10/2018 9:21 AM EDT 02/10/2018 9:24 AM EDT Nola LAST LAB BLOOD BKR ORDERABLES F inal Result [facility] [address] [place] [address] documented in this encounter Visit Diagnoses Diagnosis Benign prostatic hyperplasia without lower urinary tract symptoms- Primary documented in this encounter Additional Health Concerns Infection Onset Date Last Indicated Resolved Time CoV-Risk 08/13/2020 08/13/2020 08/23/2020 1:25 AM EST CoV-Risk Comment:Per Ambulatory Triage Form 03/16/2024 03/16/202403/27 1:22 AM EDT documented as of this encounter Care Teams Drywall Foreman Relationship Specialty Start Date End Date Elizabeth Samaniego MD [address] [place] [address] 7 [place] [address] [email or web address] PCP - General 07/02/17 Petra Murillo PA [facility] [place] [address] Historical LMR Provider 05/23/17 2 Alissa Young NP [address] [place] [address] Historical LMR Provider 05/23/17 2 Zeina Rueda DO [address] [place] [address] 7 [place] [address] Historical LMR Provider 05/23/17 Rainer Mendez MD [address] [place] [address] [email or web address] Historical LMR Provider 05/23/17 Jorge Hale DO [address] [place] [address] [facility], [place] [address] Historical LMR Provider 05/23/17 08/10/21 Daniella Villeda FNP [address] [place] [address] 7 [place] [address] Historical LMR Provider 05/23/17 Louis Johnson MD [address] [place] [address], 2nd [place] [address] Historical LMR Provider 05/23/17 08/10/21 Maya Wilson MD [address] [place] [address] 7 [place] [address] [email or web address] Historical LMR Provider 05/23/17 Dexter Lamb MD [address] [place] [phone] Historical LMR Provider 05/23/17 Elizabeth Estrada MD [address] [place] [address] 7 [place] [address] [email or web address] Historical LMR Provider 05/23/17 Pilo Haro MD [address] [place], [place] [address] [place] [address] [email or web address] Historical LMR Provider 05/23/17 08/10/21 Elizabeth Samaniego MD [address] [place] [address], [address] [place] [address] [email or web address] Insurance Assigned Provider 11/07/2302/06/24 documented as of this encounter Additional Source Comments The information contained in this document represents components of the legal health record. It is not the complete legal health record.[facility]
--- OUTSIDE RECORDS SUMMARY | 2025-06-14 18:00 | XMS_ITS | Encounter Summary ---
Author Organization [facility] Address [address] [address] Phone Care Team Providers Care Family Assessment Worker Name Role Phone Petra Murillo Unavailable [phone] Alissa Young UNIFORM DESIGNER Unavailable Zeina Rueda DO Unavailable [phone] Rainer Mendez MD Unavailable Jorge Hale DO Unavailable Daniella Villeda UNEMPLOYMENT BENEFITS CLAIMS TAKER Unavailable Louis Johnson MD Unavailable [phone] Maya Wilson MD Unavailable Dexter Lamb MD Unavailable [phone] Elizabeth Samaniego MD Unavailable Pilo Haro MD Unavailable Elizabeth Samaniego MD Primary Care Provider Elizabeth Samaniego MD Unavailable Encounter Details Date Type Department Care Team (Late st Contact Info) Description 02/05/2018 Ancillary Orders Virtual Department 30 [place], [place] [phone] Alex Romano MD 3640 [facility], [address] [place] [address] Calculus, kidney Social History Tobacco Use Types [...] Evaluation [facility] [address] [address] Heide Fried AuD [address] [place] [address] [email or web address] 06/20/2025 1:00 PM EST Office Visit [facility] Otology [address] [address] Joe Alonzo MD [address] [place] [address] [email or web address] 06/28/2025 7:15 AM EST Office Visit [facility] [address] [place] [address] 3rd Floor, [address] [place] [address] Chris Jackson DO [address] [place] [address] [place] [address] [email or web address] documented as of this encounter Results * US Kidneys and Bladder (02/08/2018 5:39 PM EDT) Anatomical Region Laterality Modality Abdomen, Kidney Ultrasound 02/08/2018 6:01 PM EDT Impressions 02/08/2018 6:06 PM EDT Persistent numerous non-obstructing intrarenal stones bilaterally. Similar overall burden to the CT in September allowing for difference in modality. No sign of obstruction, infection or tumor today. POS [id number] Narrative 02/08/2018 6:06 PM EDT Compare to [...] of obstruction, infection or tumor today. POS [id number] us Alex Romano MD G US RENAL Final Result documented in this encounter Visit Diagnoses Diagnosis Calculus, kidney Calculus of kidney Calculus, kidney Calculus of kidney documented in this encounter Additional Health Concerns Infection Onset Date Last Indicated Resolved Time CoV-Risk 08/13/2020 08/13/2020 08/23/2020 1:25 AM EST CoV-Risk Comment:Per Ambulatory Triage Form 03/16/2024 03/16/202403/27 1:22 AM EDT documented as of this encounter Care Teams Family Assessment Worker Relationship Specialty Start Date End Date Elizabeth Samaniego MD 234 [facility] 7 [place] [address] [email or web address] PCP - General 07/02/17 Petra Murillo PA [facility], [facility] [place] [address] Historical LMR Provider 05/23/17 2 Alissa Young NP [address] [place] [address] Historical LMR Provider 05/23/17 2 Zeina Rueda DO [address] [place] [address] 7 [place] [address] [email or web address] Historical LMR Provider 05/23/17 Rainer Mendez MD [address] [place] [address] [email or web address] Historical LMR Provider 05/23/17 Jorge Hale DO [address] [place] [address] Orthopedics & Sports [facility], [facility] [place] [address] Historical LMR Provider 05/23/17 08/10/21 Daniella Villeda FNP 234 [facility], [facility] 7 [place] [address] [email or web address] Historical LMR Provider 05/23/17 Louis Johnson MD 22 [facility], 2nd [place] [address] Historical LMR Provider 05/23/17 08/10/21 Maya Wilson MD [address] [place] [address] 7 [place] [address] [email or web address] Historical LMR Provider 05/23/17 Dexter Lamb MD [address] [place] [address] 7 [place] [phone] Historical LMR Provider 05/23/17 2 Elizabeth Samaniego MD [address] [place] [address] 7 [place] [address] [email or web address] Historical LMR Provider 05/23/17 Pilo Haro MD [address] [place], [place] [address] [place] [phone] [email or web address] Historical LMR Provider 05/23/17 08/10/21 Elizabeth Samaniego MD [address] [place] [address] 7 [place] [address] [email or web address] Insurance Assigned Provider 11/07/2302/06/24 documented as of this encounter Additional Source Comments The information contained in this document represents components of the legal health record. It is not the complete legal health record.[facility]
--- OUTSIDE RECORDS SUMMARY | 2025-06-14 18:00 | XMS_ITS | Encounter Summary ---
Author Organization [facility] Address 399 [facility] [address] [place] [address] Phone Care Team Providers Care Story Reader Name Role Phone Petra Murillo Unavailable [phone] Alissa Young GLOVE FACTORY SEWER Unavailable [phone] Zeina Rueda DO Unavailable Rainer Mendez MD Unavailable Jorge Hale DO Unavailable Daniella Villeda HOTEL RESERVATION AGENT Unavailable Louis Johnson MD Unavailable Maya Wilson MD Unavailable Dexter Lamb MD Unavailable [phone] Elizabeth Samaniego MD Unavailable [phone] Pilo Haro MD Unavailable [phone] Elizabeth Samaniego MD Primary Care Provider Elizabeth Samaniego MD Unavailable Encounter Details Date Type Department Care Team (Late st Contact Info) Description 07/06/2018 Ancillary Orders Virtual Department 30 [place], [place] [phone] Nola Najera PA [address] [address] [email or web address] Calculus of kidney Social History Tobacco Use [...] Info) Description 06/20/2025 12:15 PM EST Evaluation [facility] [place] [address] [address] Heide Fried AuD [address] [place] [address] [email or web address] 06/20/2025 1:00 PM EST Office Visit [facility] Otology [address] [address] Joe Alonzo MD [address] [place] [address] [email or web address] 06/28/2025 7:15 AM EST Office Visit [facility] [address] [place] [address] 3rd [facility], [address] [place] [address] Kaylie Jackson DO [address] [place] [address] [place] [address] documented as of this encounter Results * US Kidneys (07/21/2018 8:35 AM EST) Anatomical Region Laterality Modality Abdomen, Kidney Ultrasound 07/21/2018 9:17 AM EST Impressions 07/21/2018 9:41 AM EST Multiple bilateral renal stones without obstruction. POS [id number] Edited by: Vernell Montoya on 07/21/2018 9:20 [...] Multiple bilateral renal stones without obstruction. POS [id number] Edited by: Vernell Montoya on 07/21/2018 9:20 [...] Date Last Indicated Resolved Time CoV-Risk 08/13/2020 08/13/202008/23/2020 1:25 AM EST CoV-Risk Comment:Per Ambulatory Triage Form 03/16/2024 03/16/202403/27 1:22 AM EDT documented as of this encounter Care Teams Story Reader Relationship Specialty Start Date End Date Elizabeth Samaniego MD [address] [place] [address] 7 [place] [address] [email or web address] PCP - General 07/02/17 Petra Murillo PA [facility] [place] [address] Historical LMR Provider 05/23/17 2 Alissa Young [employer]OVE FACTORY SEWER 1 [place] [address] Historical LMR Provider 05/23/17 2 Zeina Rueda DO [address] [place] [address] [email or web address] Historical LMR Provider 05/23/17 Rainer Mendez MD [address] [place] [address] [email or web address] Historical LMR Provider 05/23/17 Jorge Hale DO [address] [place] [address] [facility] Medicine, [place] [address] [email or web address] Historical LMR Provider 05/23/17 08/10/21 Daniella Villeda FNP [address] [place] [address] 7 [place] [address] Historical LMR Provider 05/23/17 Louis Johnson MD 22 [facility], [address] [place] [address] Historical LMR Provider 05/23/17 08/10/21 Maya Wilson MD [address] [place] [address] 7 [place] [address] [email or web address] Historical LMR Provider 05/23/17 Dexter Lamb MD [address] [place] [phone] Historical LMR Provider 05/23/17 2 Elizabeth Samaniego MD [address] [place] [address] 7 [place] [address] [email or web address] Historical LMR Provider 05/23/17 Pilo Haro MD [address] [place], [place] [address] [place] [address] [email or web address] Historical LMR Provider 05/23/17 08/10/21 Elizabeth Samaniego MD [address] [place] [address] 7 [place] [address] [email or web address] Insurance Assigned Provider 11/07/2302/06/24 documented as of this encounter Additional Source Comments The information contained in this document represents components of the legal health record. It is not the complete legal health record.[facility]
--- OUTSIDE RECORDS SUMMARY | 2025-06-14 18:00 | XMS_ITS | Encounter Summary ---
Author Organization [facility] Address [address] [address] Phone Care Team Providers Care Event Coordinator Marketing And Sales Name Role Phone Petra Murillo Unavailable [phone] Alissa Young SCALER Unavailable [phone] Zeina Rueda DO Unavailable Rainer Mendez MD Unavailable Jorge Hale DO Unavailable Daniella VilledaP Unavailable Louis Johnson MD Unavailable Maya Wilson MD Unavailable [phone] Dexter Lamb MD Unavailable [phone] Elizabeth Samaniego MD Unavailable Pilo Haro MD Unavailable Elizabeth Samaniego MD Primary Care Provider Elizabeth Samaniego MD Unavailable Encounter Details Date Type Department Care Team (Late st Contact Info) Description 05/07/2018 Procedure Pass [facility], [address] [address] Social History Tobacco Use Types Packs/Day Years [...] [facility] Audiology [address] [address] Heide Fried AuD [address] [place] [address] [email or web address] 06/20/2025 1:00 PM EST Office Visit [facility] Otology [address] [address] Joe Alonzo MD [address] [place] [address] [email or web address] 06/28/2025 7:15 AM EST Office Visit [facility] [address] [place] [address], [address] [place] [address] Chris Jackson DO [address] [place] [address] [place] [address] [email or web address] documented as of this encounter Visit Diagnoses Not on filedocumented in this encounter Additional Health Concerns Infection Onset Date Last Indicated Resolved Time CoV-Risk 08/13/2020 08/13/2020 08/23/2020 1:25 AM EST CoV-Risk Comment:Per Ambulatory Triage Form 03/16/2024 03/16/202403/27 1:22 AM EDT documented as of this encounter Care Teams Event Coordinator Marketing And Sales Relationship Specialty Start Date End Date Elizabeth Samaniego MD [address] [place] [address] 7 [place] [address] [email or web address] PCP - General 07/02/17 Petra Murillo PA [facility] [place] [address] Historical LMR Provider 05/23/17 2 Alissa Young NP [address] [address] Historical LMR Provider 05/23/17 2 Zeina Rueda DO [address] [place] [address] 7 [place] [address] Historical LMR Provider 05/23/17 Rainer Mendez MD [address] [place] [address] [email or web address] Historical LMR Provider 05/23/17 Jorge Hale DO [address] [place] [address] [facility], [place] [address] Historical LMR Provider 05/23/17 08/10/21 Daniella Villeda FNP [address] [place] [address] 7 [place] [address] Historical LMR Provider 05/23/17 Louis Johnson MD [address] [place] [address], 2nd [place] [address] Historical LMR Provider 05/23/17 08/10/21 Maya Wilson MD [address] [place] [address] 7 [place] [address] [email or web address] Historical LMR Provider 05/23/17 Dexter Lamb MD [address] [place] [address] 7 [place] [address] Historical LMR Provider 05/23/17 2 Elizabeth Samaniego MD [address] [place] [address] 7 [place] [address] [email or web address] Historical LMR Provider 05/23/17 Pilo Haro MD [address] [place], [place] [address] [place] [address] [email or web address] Historical LMR Provider 05/23/17 08/10/21 Elizabeth Samaniego MD [address] [place] [address] 7 [place] [address] [email or web address] Insurance Assigned Provider 11/07/2302/06/24 documented as of this encounter Additional Source Comments The information contained in this document represents components of the legal health record. It is not the complete legal health record.[facility]
--- OUTSIDE RECORDS SUMMARY | 2025-06-14 18:00 | XMS_ITS | Encounter Summary ---
Author Organization [facility] Address 399 [facility] [address] [place] [address] Phone Care Team Providers Care Tv Production Assistant Name Role Phone Zeina Rueda Carlos NGUYEN Unavailable [phone] Rainer Mendez MD Unavailable Daniella VilledaP Unavailable Maya Wilson MD Unavailable Elizabeth Samaniego MD Unavailable [phone] Elizabeth Samaniego MD Primary Care Provider [phone] Elizabeth Samaniego MD Unavailable Encounter Details Date Type Department Care Team (Late st Contact Info) Description 09/03/2023 Procedure Pass [address] [place] [address] Social History Tobacco Use Types Packs/Day Years [...] [facility] Audiology [facility] [address] [facility] 2nd [place] [address] Heide Fried AuD [address] [place] [address] [email or web address] 06/20/2025 1:00 PM EST Office Visit [facility] Otology [place] [address] [facility] 2nd [place] [address] Joe Alonzo MD 243 [place] [address] [email or web address] 06/28/2025 7:15 AM EST Office Visit [facility] 22 [facility] 3rd [facility], [address] [place] [address] Chris Jackson DO 22 [facility] [address] [place] [address] [email or web address] documented as of this encounter Visit Diagnoses Not on filedocumented in this encounter Additional Health Concerns Infection Onset Date Last Indicated Resolved Time CoV-Risk Comment:Per Ambulatory Triage Form 03/16/2024 03/16/202403/27 1:22 AM EDT Assessment Noted Time PHQ-2 Depression Total Score: 2 09/05/19 23 3:42 PM EST documented as of this encounter Care Teams Tv Production Assistant Relationship Specialty Start Date End Date Elizabeth Samaniego MD [address] [place] [address] [email or web address] PCP - General 07/02/17 Zeina Rueda DO [address] [place] [address] [email or web address] Historical LMR Provider 05/23/17 Rainer Mendez MD [address] [place] [address] [email or web address] Historical LMR Provider 05/23/17 Daniella Villeda FNP [address] [place] [address] Historical LMR Provider 05/23/17 Maya Wilson MD [address] [place] [address] [email or web address] Historical LMR Provider 05/23/17 Elizabeth Samaniego MD [address] [place] [address] [email or web address] Historical LMR Provider 05/23/17 Elizabeth Samaniego MD [address] [place] [address] [email or web address] Insurance Assigned Provider 11/07/2302/06/24 documented as of this encounter Additional Source Comments The information contained in this document represents components of the legal health record. It is not the complete legal health record.[facility]
== END 2025-06-14 15:12 | disposition home or self-care (01) ==
LOC: HO.HNS 14:31
PROVIDERS: PCP Family Medicine; Visit Provider Neurological Surgery
DX: M43.17 Spondylolisthesis, lumbosacral region (principal)
CPT/HCPCS: 99214